=== PATIENT | female | born 1950 | race Caucasian/White ===

== ENCOUNTER → 2019-07-10 | Outpatient (CLI) | payer MEDICARE ==
[~2019-07-10] MED LIST: AMLO10TA8 PO; AMLO5TAB10 PO; ATOR40TA59 PO; BACL10TA PO; CARV3.1210 PO; CITA40TA12 PO; CLOP75TA PO; FENT1PAT17 TD; FENT1PAT19 TP; FULV250D IM; FURO-68 PO; GABA300C18 PO; HYDR-2769 PO; HYDR-3135 PO; LISI-334 PO; METF500T16 PO; MONT10TA49 PO; MORP-15 PO; MORP15TA PO; OMEP20TA63 PO; OMEP40CA45 PO; OXYC20TA PO; OXYC5CAP PO; PALB125C PO; POTA10TA12 PO; PROVENTIL HFA6.7 GM IH; RANI150C PO
--- NOTE | 2019-07-10 14:42 | RAD ---
PET ONCOLOGY CLINICAL INDICATION: Breast cancer with bone metastases.. PET for subsequent treatment strategy. FDG PET-CT of the Body TECHNIQUE: The patient received an IV injection of 13.6 mCi 18F-FDG in the left wrist. After an initial uptake phase of approximately 60-90 minutes, a CT scan without oral contrast, without IV contrast was acquired. Subsequently, positron emission tomography images from the skull base to mid thigh were obtained. CT, PET and fused images were reconstructed in transaxial, coronal, and sagittal projections and interpreted from a workstation. The patient's plasma glucose was 195 mg/dl. PRIOR STUDIES: 03/11/2019. CORRELATIVE STUDIES: Most recent CT angiogram chest from 06/07/2019. FINDINGS: CT: Please note that CT is only obtained for anatomic correlation. Limited exam due to lack of IV contrast. Visualized noncontrast sections through the brain and orbits are within normal limits. No enlarged cervical lymph nodes. Noncontrast appearance of the nasopharynx, oropharynx and hypopharynx within normal limits. Noncontrast appearance of the submandibular glands, parotid glands and thyroid are within normal limits. Significant atherosclerotic plaque in the bilateral carotid bulbs. No enlarged axillary or mediastinal lymph nodes. Evaluation of hilar lymphadenopathy is limited due to lack of IV contrast. Significant motion artifact is seen in the lungs limiting optimal evaluation. Couple of calcified granulomas in the left lung. Noncontrast appearance of the liver, spleen, gallbladder, pancreas, left adrenal within normal limits. Right adrenal adenoma measuring 1 cm. No nephrolithiasis or hydronephrosis. No enlarged retroperitoneal or pelvic adenopathy. Moderate diffuse atherosclerotic plaque in the abdominal aorta. No free pelvic fluid or ascites. No bowel obstruction. Uterus is present. Urinary bladder demonstrates no radiopaque stones. PET: No abnormal metabolic activity seen. IMPRESSION: PET-CT from the skull base to mid thigh demonstrates: 1. No abnormal metabolic activity seen. Electronically signed by: Mukesh Van DO (07/10/2019 2:39 PM) [facility]
== END | disposition home or self-care (01) ==
LOC: PETSC 14:05
PROVIDERS: ATTEND Radiology Radiation Oncology
DX: C50.211 Malignant neoplasm of upper-inner quadrant of right female breast (principal); C79.51 Secondary malignant neoplasm of bone; I65.23 Occlusion and stenosis of bilateral carotid arteries; J84.10 Pulmonary fibrosis, unspecified; D35.01 Benign neoplasm of right adrenal gland; I70.0 Atherosclerosis of aorta
CPT/HCPCS: 78815; A9552

== ENCOUNTER → 2019-09-26 | Outpatient (CLI) | payer MEDICARE ==
[2019-07-19 23:31] VITALS: BP 126/36
--- NOTE | 2019-09-29 18:52 | RAD ---
Examination: PET W CT SKULL TO MIDTHIGH History: Breast cancer restaging Comparison/Correlation: 03/11/2019 PET/CT exam, 07/10/2019 PET/CT exam, CTA of the chest 06/07/2019 Findings: PET CT exam was performed from the skull base to the proximal thighs. 13.4 mCi F-18 FDG was intravenously administered. Serum blood glucose was 189 mg/dL at the time of injection. Hepatic uptake is 2.1 SUV max. Uptake of radiotracer involving the visualized head, neck chest, abdomen, and pelvis is unremarkable. Uptake of radiotracer within bowel is physiologic in distribution. Coronary arterial calcification is notable. Left-sided infusion port is noted. Right axilla surgical clips are present. Diverticulosis of the colon is present. Nonobstructive right renal inferior pole calyceal calculus involvement noted. Cholelithiasis evident. Splenic lesion which is low in attenuation with no uptake probably representing a cyst is again identified. No enlarged abdominal or pelvic lymph nodes. Impression: No abnormal uptake to suggest active neoplastic or metastatic disease.
== END | disposition home or self-care (01) ==
LOC: PETSC 08:50
PROVIDERS: ATTEND Radiology Radiation Oncology
DX: C50.211 Malignant neoplasm of upper-inner quadrant of right female breast (principal); C79.51 Secondary malignant neoplasm of bone; K57.30 Diverticulosis of large intestine without perforation or abscess without bleeding; K80.20 Calculus of gallbladder without cholecystitis without obstruction; D73.89 Other diseases of spleen; I25.10 Atherosclerotic heart disease of native coronary artery without angina pectoris
CPT/HCPCS: 78815; A9552

== ENCOUNTER → 2020-01-23 | Outpatient (CLI) | payer MEDICARE ==
[2019-07-19 23:31] VITALS: BP 126/36
--- NOTE | 2020-01-23 20:44 | RAD ---
EXAM: PET W CT SKULL TO MIDTHIGH EXAM DATE: 01/23/2020 INDICATION: Right breast cancer. Restaging. She is a diabetic on metformin, last dose the night before. RADIOPHARMACEUTICAL: 13.5 mCi of F-18 Fluorodeoxyglucose (FDG) I.V. via the right wrist. TECHNIQUE: Patient weight: 175 pounds. Following at least four-hour fasting, the patient's blood glucose was 173 mg/dl. Approximately 1 hour after administration of FDG, overlapping emission scanning was performed from the orbital meatal line through the pelvis. A low-dose CT was performed for attenuation correction purposes and anatomic localization. Fused images of PET and CT were reviewed. Any standardized uptake values (SUV) reported are maximum values within a volume region of interest, expressed in gm/ml. COMPARISON: PET CT of 07/10/2019 and 09/26/2019. FINDINGS: PET: High background activity. Minimal right parasternal uptake at the level of the xiphoid process (image 91 of series 603) to max SUV of 1.84 present. No discrete abnormal metabolic activity is convincingly demonstrated. However, nodular pattern of activity in the liver could obscure uptake of small masses if present. No abnormal uptake in the bones. CT: Left chest port. Postop changes from right axillary pao dissection and bilateral oncoplasty breast surgery noted. Scattered calcified pulmonary granuloma and calcified left hilar lymph nodes. Coronary calcifications. Scattered arterial calcifications in the aorta without aneurysmal dilation. Mild focal ectasia in the infrarenal abdominal aorta to 2.1 cm with calcified intraluminal filling defects suggesting a chronic dissection. Layering rounded calcifications in the gallbladder lumen suggestive of a small gallstone. Nonobstructive punctate right nephrolithiasis measuring 4 mm. A 1 cm nodular density close to the superior pole of the right kidney could represent the adenoma previously described old motion artifact on this examination degrades detail. Scattered colonic diverticuli. Generalized osteopenia with no acute or aggressive osseous lesions. Mild sclerosis of the bilateral sacroiliac joints with evidence of partial fusion. Multilevel lumbar spinal degenerative changes. IMPRESSION: No evidence of recurrent, metabolically active disease in the included field of view. Electronically signed by: Nguyen Sterling MD (01/23/2020 8:40 PM) [id number]
== END | disposition home or self-care (01) ==
LOC: PETSC 08:57
PROVIDERS: ATTEND Internal Medicine Hematology & Oncology
DX: C50.411 Malignant neoplasm of upper-outer quadrant of right female breast (principal); Z17.0 Estrogen receptor positive status [ER+]; M89.8X9 Other specified disorders of bone, unspecified site; I70.0 Atherosclerosis of aorta; J84.10 Pulmonary fibrosis, unspecified; M51.36 Other intervertebral disc degeneration, lumbar region
CPT/HCPCS: 78815; A9552

== ENCOUNTER 2020-03-27 05:34 | Emergency (ER) | payer MEDICARE ==
[~2020-03-27] VITALS: Ht 160 cm; Wt 80.9 kg
[~2020-03-27 05:34] MED LIST changes: +ASPI325T11 PO; +Diclofenac Sodium TP; +NITR0.4T24 SL; +TIZA4TAB2 PO
[2020-03-27] MEDS ORDERED: KETOROLAC 30 MG/ML VIAL. IV ONE (06:30)
[2020-03-27] MEDS ORDERED: diphenhydrAMINE 50 MG/ML VIAL IVP ONE (06:30)
[2020-03-27] MEDS ORDERED: METOCLOPRAMIDE HCL 10 MG/2 ML VIAL. IV ONE (06:30)
[2020-03-27 06:38] LABS: BILIRUBIN,URINE NEGATIVE (NEG); CLARITY,URINE CLEAR; COLOR,URINE YELLOW; NITRITE,URINE NEGATIVE (NEG); PROTEIN,URINE NEGATIVE (NEG-TRACE)
[2020-03-27 06:50] LABS: BASO % 1 % (0-3); EOS # 0.1 x10^3/uL (0.0-0.7); EOS % 2 % (0-3); HEMATOCRIT 31.5 % (36.0-47.0); HEMOGLOBIN 10.6 g/dL (12.0-15.5); LYMPH # 1.1 x10^3/uL (1.0-4.8); LYMPH % 25 % (24-48); MEAN CORPUSCULAR HEMOGLOBIN 33 pg (25-35); MEAN CORPUSCULAR HGB CONC 34 g/dL (31-37); MEAN CORPUSCULAR VOLUME 97 fL (79-100); MONO # 0.4 x10^3/uL (0.0-1.1); MONO % 8 % (0-9); NEUT # 2.9 x10^3/uL (1.8-7.7); NEUT % 65 % (31-73); PLATELET COUNT 103 x10^3/uL (140-400); RED BLOOD COUNT 3.25 x10^6/uL (3.50-5.40); WHITE BLOOD COUNT 4.5 x10^3/uL (4.0-11.0)
[2020-03-27 06:52] LABS: BACTERIA,URINE 0 /HPF (0-FEW); RBC,URINE 0 /HPF (0-2); SQUAMOUS EPITHELIAL CELL,UR OCC /LPF
[2020-03-27] MEDS ORDERED: IV NORMAL SALINE 1000ML BAG 1,000 ML IV ONE (07:00)
[2020-03-27 07:01] LABS: CALCIUM 8.6 mg/dL (8.5-10.1); CREATININE 0.6 mg/dL (0.6-1.0); GFR 98.5; POTASSIUM 3.7 mmol/L (3.5-5.1)
[2020-03-27 07:11] LABS: ALBUMIN 3.4 g/dL (3.4-5.0); MAGNESIUM 1.8 mg/dL (1.8-2.4); TOTAL BILIRUBIN 0.6 mg/dL (0.2-1.0); TOTAL PROTEIN 6.8 g/dL (6.4-8.2)
--- NOTE | 2020-03-27 07:20 | RAD ---
CT HEAD AND MAXILLOFACIAL WO Date: 03/27/2020 6:11 AM Clinical Indication: Fall, pain, headache, trauma Comparison: None. Technique: 5 mm axial tomographic images were obtained of the head without contrast. These were viewed on brain and bone windows. Axial helical images of the face were obtained without contrast. Axial and coronal reconstruction was performed. One or more of the following dose reduction techniques were utilized: Automated exposure control (AEC), Adjustment of mA and/or kV according to patient size, Use of iterative reconstruction technique such as ASiR, CT scan done according to ALARA and image gently/image wisely CT HEAD FINDINGS: The brain parenchyma is normal in attenuation. No intra- or extra-axial mass or fluid collection. No acute hemorrhage. The ventricles are normal in size, shape, and morphology. The ragsdale-white matter junction is normal. The basilar cisterns are patent. The mastoid air cells are clear. No aggressive osseous lesion or fracture. CT FACE FINDINGS: There is no acute facial bone fracture. The paranasal sinuses are clear. The orbits are normal. The globes are intact. The nasal septum is mostly midline. Impression: 1. No acute intracranial process. 2. No acute facial bone fracture. Electronically signed by: Chuy Whitney MD (03/27/2020 7:17 AM) [id number]
[2020-03-27 07:21] VITALS: BP 174/86
--- NOTE | 2020-03-27 07:29 | PHYS DOC ---
Past Medical History Past Medical History: Cancer, Diabetes-Type II, High Cholesterol, Hypertension Additional Past Medical Histor: Chronic back pain Past Surgical History: Other Additional Past Surgical Histo: Breast reduction; CARDIAC STENT PLACEMENT 03/25/20 Smoking Status: Former Smoker Alcohol Use: None Drug Use: None General Adult EDM: Chief Complaint: CHEST PAIN HPI: HPI: Patient is a 70-year-old female who presents with a variety of complaints today. First, she was just discharged from the hospital after receiving cardiac stent. She states she did not feel really well after she left the hospital but really has no new complaints. She states her complaints are off and on chest discomfort which she has had now for some time. She states she is currently not having any chest pain. She does have severe headache and neck pain that she sta gena was worsened by recent accident. She states the wind caught a heavy car door and hit her in the head. She feels something very tender on her face and since that time her headaches have escalated. She has had some nausea but no vomiting. She states she has been eating. She does continue to wear her fentanyl patch. She denies any fever chills or sweats. She has had no upper respiratory type symptoms. [] Review of Systems: Review of Systems: Constitutional: Denies fever or chills. [] Eyes: Denies change in visual acuity. [] HENT: Denies nasal congestion or sore throat. [] Respiratory: Denies cough or shortness of breath. [] Cardiovascular: Denies chest pain or edema. [] GI: Denies abdominal pain, nausea, vomiting, bloody stools or diarrhea. [] : Denies dysuria. [] Musculoskeletal: Reports bony tenderness] Integument: Denies rash. [] Neurologic: Reports headache but denies lateralizing neurologic weakness [] Endocrine: Denies polyuria or polydipsia. [] Lymphatic: Denies swollen glands. [] Psychiatric: Reports anxiety and depression. [] Heart Score: Risk Factors: Risk Factors: DM, Current or recent (<one month) smoker, HTN, HLP, family history of CAD, obesity. Risk Scores: Score 0 - 3: 2.5% MACE over next 6 weeks - Discharge Home Score 4 - 6: 20.3% MACE over next 6 weeks - Admit for Clinical Observation Score 7 - 10: 72.7% MACE over next 6 weeks - Early Invasive Strategies Current Medications: Current Medications Medications (Trade) Dose Ordered Sig/Caleb Start Time Stop Time Status Last Admin Dose Admin Diphenhydramine HCl (Benadryl) 25 mg 1X ONCE 03/27/20 06:30 03/27/20 06:31 DC 03/27/20 06:51 25 MG Ketorolac Tromethamine (Toradol 30mg Vial) 30 mg 1X ONCE 03/27/20 06:30 03/27/20 06:31 DC 03/27/20 06:50 30 MG Metoclopramide HCl (Reglan Vial) 10 mg 1X ONCE 03/27/20 06:30 03/27/20 06:31 DC 03/27/20 06:50 10 MG Sodium Chloride 1,000 ml @ 1,000 mls/hr 1X ONCE 03/27/20 07:00 03/27/20 07:59 03/27/20 07:00 1,000 MLS/HR Allergies: Allergies: Allergies Coded Allergies Type Severity Reaction Last Updated Verified No Known Drug Allergies 07/04/19 No Physical Exam: PE: Constitutional: Well developed, well nourished, moderate distress, non-toxic appearance. [] HENT: Normocephalic, tender to palp left cheek no crepitus no obvious step-off or deformity, bilateral external ears normal, oropharynx moist, no oral exudates, nose normal. [] Eyes: PERRLA, EOMI, conjunctiva normal, no discharge. [] Neck: Normal range of motion, no tenderness, supple, no stridor. [] Cardiovascular:Heart rate regular rhythm, no murmur [] Lungs & Thorax: Bilateral breath sounds clear to auscultation [] Abdomen: Bowel sounds normal, soft, no tenderness, no masses, no pulsatile masses. [] Skin: Warm, dry, no erythema, no rash. [] Back: No tenderness, no CVA tenderness. [] Extremities: No tenderness, no cyanosis, no clubbing, ROM intact, no edema. [] Neurologic: Alert and oriented X 3, normal motor function, normal sensory function, no focal deficits noted. [] Psychologic: Unusual affect [] Current Patient Data: Labs: Laboratory Tests Test 03/27/20 05:50 03/27/20 06:35 Urine Collection Type Unknown Urine Color Yellow Urine Clarity Clear Urine pH 7.0 (<5.0-8.0) Urine Specific [place] 1.010 (1.000-1.030) Urine Protein Negative mg/dL (NEG-TRACE) Urine Glucose (UA) Negative mg/dL (NEG) Urine Ketones (Stick) Negative mg/dL (NEG) Urine Blood Negative (NEG) Urine Nitrite Negative (NEG) Urine Bilirubin Negative (NEG) Urine Urobilinogen Dipstick 1.0 mg/dL (0.2 mg/dL) Urine Leukocyte Esterase Trace (NEG) Urine RBC 0 /HPF (0-2) Urine WBC 1-4 /HPF (0-4) Urine Squamous Epithelial Cells Occ /LPF Urine Bacteria 0 /HPF (0-FEW) White Blood Count 4.5 x10^3/uL (4.0-11.0) Red Blood Count 3.25 x10^6/uL (3.50-5.40) L Hemoglobin 10.6 g/dL (12.0-15.5) L Hematocrit 31.5 % (36.0-47.0) L Mean Corpuscular Volume 97 fL (79-100) Mean Corpuscular Hemoglobin 33 pg (25-35) Mean Corpuscular Hemoglobin Concent 34 g/dL (31-37) Red Cell Distribution Width 15.0 % (11.5-14.5) H Platelet Count 103 x10^3/uL (140-400) L Neutrophils (%) (Auto) 65 % (31-73) Lymphocytes (%) (Auto) 25 % (24-48) Monocytes (%) (Auto) 8 % (0-9) Eosinophils (%) (Auto) 2 % (0-3) Basophils (%) (Auto) 1 % (0-3) Neutrophils # (Auto) 2.9 x10^3/uL (1.8-7.7) Lymphocytes # (Auto) 1.1 x10^3/uL (1.0-4.8) Monocytes # (Auto) 0.4 x10^3/uL (0.0-1.1) Eosinophils # (Auto) 0.1 x10^3/uL (0.0-0.7) Basophils # (Auto) 0.0 x10^3/uL (0.0-0.2) Sodium Level 139 mmol/L (136-145) Potassium Level 3.7 mmol/L (3.5-5.1) Chloride Level 101 mmol/L (98-107) Carbon Dioxide Level 32 mmol/L (21-32) Anion Gap 6 (6-14) Blood Urea Nitrogen 10 mg/dL (7-20) Creatinine 0.6 mg/dL (0.6-1.0) Estimated GFR (Cockcroft-Gault) 98.5 BUN/Creatinine Ratio 17 (6-20) Glucose Level 164 mg/dL (70-99) H Calcium Level 8.6 mg/dL (8.5-10.1) Magnesium Level 1.8 mg/dL (1.8-2.4) Total Bilirubin 0.6 mg/dL (0.2-1.0) Aspartate Amino Transferase (AST) 18 U/L (15-37) Alanine Aminotransferase (ALT) 22 U/L (14-59) Alkaline Phosphatase 55 U/L (46-116) Troponin I Quantitative 0.031 ng/mL (0.000-0.055) Total Protein 6.8 g/dL (6.4-8.2) Albumin 3.4 g/dL (3.4-5.0) Albumin/Globulin Ratio 1.0 (1.0-1.7) Laboratory Tests 03/27/20 06:35 Laboratory Tests 03/27/20 06:35 Vital Signs: Vital Signs Date Time Temp Pulse Resp B/P (MAP) Pulse Ox O2 Delivery O2 Flow Rate FiO2 03/27/20 05:54 97.6 18 151/67 (95) 97 Room Air 97.6 EKG: EKG: EKG: Normal sinus rhythm rate of [address]-T changes [] Radiology/Procedures: Radiology/Procedures: []REASON: head trauma-HALL PROCEDURE: CT HEAD AND MAXILLOFACIAL WO CT HEAD AND MAXILLOFACIAL WO Date: 03/27/2020 6:11 AM Clinical Indication: Fall, pain, headache, trauma Comparison: None. Technique: 5 mm axial tomographic images were obtained of the head without contrast. These were viewed on brain and bone windows. Axial helical images of the face were obtained without contrast. Axial and coronal reconstruction was performed. One or more of the following dose reduction techniques were utilized: Automated exposure control (AEC), Adjustment of mA and/or kV according to patient size, Use of iterative reconstruction technique such as ASiR, CT scan done according to ALARA and image gently/image wisely CT HEAD FINDINGS: The brain parenchyma is normal in attenuation. No intra- or extra-axial mass or fluid collection. No acute hemorrhage. The ventricles are normal in size, shape, and morphology. The ragsdale-white matter junction is normal. The basilar cisterns are patent. The mastoid air cells are clear. No aggressive osseous lesion or fracture. CT FACE FINDINGS: There is no acute facial bone fracture. The paranasal sinuses are clear. The orbits are normal. The globes are intact. The nasal septum is mostly midline. Impression: 1. No acute intracranial process. 2. No acute facial bone fracture. Course & Med Decision Making: Course & Med Decision Making Pertinent Labs and Imaging studies reviewed. (See chart for details) [ED course: Evaluation reveals a 70-year-old female with chronic pain and anxiety. I spoke with Dr. Mcrae who knew the patient very well. When I told the patient we would not be doing any pain medicine on the floor she said that she would rather go home. I suspect there is some drug-seeking behavior going on here.] Dragon Disclaimer: Sebastian Disclaimer: This electronic medical record was generated, in whole or in part, using a voice recognition dictation system. Departure Departure Impression: Primary Impression: Chest pain Qualified Codes: R07.9 - Chest pain, unspecified Additional Impression: Facial contusion Qualified Codes: S00.83XA - Contusion of other part of head, initial encounter Disposition: HOME, SELF-CARE Condition: STABLE Referrals: NO PCP (PCP) Patient Instructions: Chest Pain (Nonspecific), Chronic Pain Management Additional Instructions: You need to follow-up with your primary care physician. Return to the emergency department with any new or concerning symptoms ESTUARDO MARC DO March 27, 2020 07:29
[2020-03-27] MEDS ORDERED: HEPARIN PF 500 UNIT/5 ML DISP.SYRIN. IVP ONE (07:45)
[2020-03-27] MEDS ORDERED: HEPARIN PF 500 UNIT/5 ML DISP.SYRIN. IVP PRN ×2 (08:00)
--- NOTE | 2020-03-29 07:09 | EKG ---
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
== END 2020-03-27 07:51 | disposition home or self-care (01) ==
LOC: ER 05:34
DX: S00.83XA Contusion of other part of head, initial encounter (principal); R07.89 Other chest pain; R11.0 Nausea; R51 Headache; G89.29 Other chronic pain; E78.00 Pure hypercholesterolemia, unspecified; I10 Essential (primary) hypertension; E11.9 Type 2 diabetes mellitus without complications; F17.200 Nicotine dependence, unspecified, uncomplicated; W22.8XXA Striking against or struck by other objects, initial encounter; Y93.89 Activity, other specified; Y92.89 Other specified places as the place of occurrence of the external cause; Y99.8 Other external cause status
CPT/HCPCS: 36415; 70450; 70486; 80053; 81001; 83735; 84484; 85025; 87086; 93005; 96374; 96375; 99285; J1200; J1642; J1885; J2765; J7030

== ENCOUNTER 2020-07-01 16:10 | Inpatient (IN) | payer MEDICARE ==
[~2020-07-01] VITALS: Ht 160 cm; Wt 85.0 kg
[2020-07-01] MEDS ORDERED: IV NORMAL SALINE 1000ML BAG 1,000 ML IV ONE (16:45)
[2020-07-01] MEDS ORDERED: ONDANSETRON PF 4 MG/2 ML VIAL. IVP ONE (16:45)
[2020-07-01] MEDS ORDERED: MORPHINE SULFATE 10 MG/ML VIAL. IV ONE (16:45)
[2020-07-01] MEDS ORDERED: FAMOTIDINE 20 MG/2 ML VIAL IVP ONE (16:45)
[2020-07-01 17:12] LABS: BASO # 0.1 x10^3/uL (0.0-0.2); BASO % 1 % (0-3); CALCIUM 8.4 mg/dL (8.5-10.1); CREATININE 0.8 mg/dL (0.6-1.0); EOS # 0.1 x10^3/uL (0.0-0.7); EOS % 1 % (0-3); GFR 70.7; HEMATOCRIT 34.9 % (36.0-47.0); HEMOGLOBIN 11.7 g/dL (12.0-15.5); LYMPH # 1.2 x10^3/uL (1.0-4.8); LYMPH % 23 % (24-48); MEAN CORPUSCULAR HEMOGLOBIN 32 pg (25-35); MEAN CORPUSCULAR HGB CONC 34 g/dL (31-37); MEAN CORPUSCULAR VOLUME 96 fL (79-100); MONO # 0.3 x10^3/uL (0.0-1.1); MONO % 6 % (0-9); NEUT # 3.5 x10^3/uL (1.8-7.7); NEUT % 68 % (31-73); PLATELET COUNT 146 x10^3/uL (140-400); POTASSIUM 3.8 mmol/L (3.5-5.1); RED BLOOD COUNT 3.63 x10^6/uL (3.50-5.40); RED CELL DISTRIBUTION WIDTH 14.3 % (11.5-14.5); WHITE BLOOD COUNT 5.1 x10^3/uL (4.0-11.0)
[2020-07-01 17:18] LABS: ALBUMIN 3.4 g/dL (3.4-5.0); ALBUMIN/GLOBULIN RATIO 0.9 (1.0-1.7); MAGNESIUM 1.7 mg/dL (1.8-2.4); TOTAL BILIRUBIN 0.7 mg/dL (0.2-1.0); TOTAL PROTEIN 7.4 g/dL (6.4-8.2)
[2020-07-01] MEDS ORDERED: CONTRAST GIVEN. MC PRN (17:45)
[2020-07-01] MEDS ORDERED: IOHEXOL 300 MG/ML 100ML VIAL. IV ONE (18:00)
--- NOTE | 2020-07-01 18:09 | RAD ---
EXAM: CT Abdomen and Pelvis with IV contrast CLINICAL HISTORY: abd pain, bloody stools COMPARISON: none TECHNIQUE: Helical CT of the abdomen and pelvis was performed following the administration of IV contrast. Axial, coronal and sagittal reformatted images were generated. ---PQRS compliance statement - One or more of the following individualized dose reduction techniques were utilized for this study: 1. Automated exposure control 2. Adjustment of the mA and/or kV according to patient size 3. Use of iterative reconstruction technique--- FINDINGS: Lower chest: Dependent opacities in lower lobes likely scarring/atelectasis. Coronary artery calcifications are seen. Abdomen and pelvis: Liver and biliary system: No focal liver lesion. The liver is enlarged measuring 19 cm in length. Gallbladder is normal. No biliary ductal dilatation. Spleen: 2 cm splenic lesion is likely cystic. Pancreas: Pancreas is mildly atrophic. Adrenal glands: Unremarkable Kidneys: Symmetric nephrograms. Nonobstructing right interpolar renal calculus. No focal renal lesion. No hydronephrosis. No hydroureter Lymph nodes/retroperitoneum: No abdominal or pelvic lymphadenopathy. Vessels: Aortic calcifications are seen. Trace ectasia of the infrarenal aorta. Bowel/Peritoneal cavity: Prominent duodenal diverticulum is seen. Appendix is normal. Moderate colonic stool content is seen. No small or large bowel dilatation. No bowel obstruction. Colonic diverticulosis without evidence for acute diverticulitis. No abdominal or pelvic ascites. Abdominal wall: Unremarkable Bladder: Unremarkable Bones: Symphysis pubis degenerative changes of spine are seen. Mild leftward curvature of the thoracic spine apex at T11. IMPRESSION: 1. Moderate colonic stool content. Colonic diverticulosis without evidence for acute diverticulitis. 2. Cholelithiasis without CT evidence for acute cholecystitis. 3. Hypodense splenic lesion likely cyst. 4. Nonobstructive right interpolar renal calculus. 5. Hepatic hypoattenuation likely fatty liver. Electronically signed by: Juanito Shah MD (07/01/2020 6:06 PM) [facility]
[2020-07-01] MEDS ORDERED: HYDROmorphone 2 MG/ML VIAL IV ONE ×2 (19:30→20:15)
[2020-07-01] MEDS ORDERED: ONDANSETRON PF 4 MG/2 ML VIAL. IV PRN (20:15)
--- NOTE | 2020-07-01 20:17 | HP ---
ADMIT DATE: 07/01/2020 CHIEF COMPLAINT: Abdominal pain. HISTORY OF PRESENT ILLNESS: The patient is a pleasant middle-aged female, who presents to the ER with abdominal pain. She rates it at 9/10. She has associated nausea. It has been occurring for a couple of days. She tried taking some [id number] meds, but that did not help. She does have a previous history of diverticulitis. We did a CAT scan here in the ER, it is showing some diverticular disease without obvious inflammation. She also has moderate colonic stool and gallstones. I discussed the case with ER physician. We are going to admit the patient and consult GI. PAST MEDICAL HISTORY: Breast cancer, left chest wall Port-A-Cath, polypharmacy, depression, anxiety, TIA, hypertension, hyperlipidemia, chronic pain, GERD, diabetes. ALLERGIES: None. FAMILY HISTORY: Diabetes. SOCIAL HISTORY: She does not drink, smoke, or take drugs. MEDICATIONS: Reviewed, please refer to the MRAD, but she is on 19 medications. REVIEW OF SYSTEMS: GENERAL: No history of weight change, weakness or fevers. SKIN: No bruising, hair changes or rashes. EYES: No blurred, double or loss of vision. NOSE AND THROAT: No history of nosebleeds, hoarseness, or sore throat. HEART: No history of palpitations, chest pain or shortness of breath on exertion. LUNGS: Denies cough, hemoptysis, wheezing or shortness of breath. GASTROINTESTINAL: She complains of abdominal pain. GENITOURINARY: No history of frequency, urgency, hesitancy or nocturia. NEUROLOGIC: Denies history of numbness, tingling, tremor or weakness. PSYCHIATRIC: No history of panic, anxiety or depression. ENDOCRINE: No history of heat or cold intolerance, polyuria or polydipsia. EXTREMITIES: Denies muscle weakness, joint pain, pain on walking or stiffness. PHYSICAL EXAMINATION: VITALS: Within normal limits and are stable. GENERAL: No apparent distress. Alert and oriented. HEENT: Normal cephalic atraumatic, external auditory canals are patent. EYES: Extraocular muscles are intact, pupils are equally round and reactive to light and accommodation. MUSCULOSKELETAL: Well developed, well nourished, good range of motion. ENDOCRINE: No thyromegaly was palpated. LYMPHATICS: No cervical chain or axillary nodes were noted. HEMATOPOIETIC: No bruising. NECK: Supple, no JVD, no thyromegaly was noted. LUNGS: Clear to auscultation in all lung masterson without rhonchi or wheezing. CHEST: She does have a left chest Port-A-Cath. HEART: RRR, S1, S2 present. Peripheral pulses intact, no obvious murmurs were noted. ABDOMEN: She has decreased bowel sounds with pain in the left lower quadrant. EXTREMITIES: Without any cyanosis, clubbing, or edema. Pedal pulses intact, Homans sign is negative. NEUROLOGIC: Normal speech, normal tone. A & O x3, moves all extremities, no obvious focal deficits. PSYCHIATRIC: Normal affect, normal mood. Stable. SKIN: No ulcerations or rashes, good skin turgor, no jaundice. VASCULAR: Good capillary refill, neurovascular bundle appears to be intact. IMAGING: CT of the abdomen shows gallstones and diverticular disease and a lot of stool. LABORATORY DATA: White count is normal at 5. Electrolytes are normal. ASSESSMENT AND PLAN: Abdominal pain. The patient has been admitted. We will consult GI. IV fluids, home meds, DVT prophylaxis. Full code. P.r.n. pain meds. JEREMIE WHITFIELD DO DR: ELKE/arun JOB#: [id number] / [id number]
--- NOTE | 2020-07-01 20:37 | PHYS DOC ---
Past Medical History Past Medical History: Cancer, Diabetes-Type II, High Cholesterol, Hypertension, Other Additional Past Medical Histor: Chronic back pain, breast CA lEFT. Past Surgical History: Other Additional Past Surgical Histo: Breast reduction; CARDIAC STENT PLACEMENT 03/25/20 Smoking Status: Former Smoker Alcohol Use: None Drug Use: None General Adult EDM: Chief Complaint: ABDOMINAL PAIN HPI: HPI: Patient is a 70 year old female with history of diabetes type 2, hypertension, breast cancer currently not on chemotherapy, who presents to the ED today complaining of 8 out of 10 sharp left-sided abdominal pain with nausea that began 1 week ago. Patient denies any exacerbating or relieving factors to her pain. She states she tried [id number] remedies with no relief. She also states she noted her stools were bloody. Review of Systems: Review of Systems: Constitutional: Denies fever or chills. [] Eyes: Denies change in visual acuity. [] HENT: Denies nasal congestion or sore throat. [] Respiratory: Denies cough or shortness of breath. [] Cardiovascular: Denies chest pain or edema. [] GI: Reports left-sided abdominal pain with nausea, vomiting, bloody stools or diarrhea. [] : Denies dysuria. [] Musculoskeletal: Denies back pain or joint pain. [] Integument: Denies rash. [] Neurologic: Denies headache, focal weakness or sensory changes. [] Psychiatric: Denies depression or anxiety. [] Heart Score: Risk Factors: Risk Factors: DM, Current or recent (<one month) smoker, HTN, HLP, family history of CAD, obesity. Risk Scores: Score 0 - 3: 2.5% MACE over next 6 weeks - Discharge Home Score 4 - 6: 20.3% MACE over next 6 weeks - Admit for Clinical Observation Score 7 - 10: 72.7% MACE over next 6 weeks - Early Invasive Strategies Current Medications: Current Medications Medications (Trade) Dose Ordered Sig/Caleb Start Time Stop Time Status Last Admin Dose Admin Famotidine (Pepcid Vial) 20 mg 1X ONCE 07/01/20 16:45 07/01/20 16:47 DC 07/01/20 17:09 20 MG Hydromorphone HCl (Dilaudid) 1 mg 1X ONCE 07/01/20 20:15 07/01/20 20:16 DC 07/01/20 20:26 1 MG Info (CONTRAST GIVEN -- Rx MONITORING) 1 each PRN DAILY PRN 07/01/20 17:45 07/03/20 17:44 Iohexol (Omnipaque 300 Mg/ml) 75 ml 1X ONCE 07/01/20 18:00 07/01/20 18:01 DC 07/01/20 17:42 75 ML Morphine Sulfate (Morphine Sulfate) 4 mg PRN Q2HR PRN 07/01/20 20:15 07/02/20 20:14 Ondansetron HCl (Zofran) 4 mg PRN Q8HRS PRN 07/01/20 20:15 07/02/20 20:14 Sodium Chloride 1,000 ml @ 1,000 mls/hr 1X ONCE 07/01/20 16:45 07/01/20 17:44 DC 07/01/20 16:45 1,000 MLS/HR Allergies: Allergies: Allergies Coded Allergies Type Severity Reaction Last Updated Verified No Known Drug Allergies 07/04/19 No Physical Exam: PE: Constitutional: Well developed, well nourished, no acute distress, non-toxic appearance. [] HENT: Normocephalic, atraumatic, bilateral external ears normal, oropharynx moist, no oral exudates, nose normal. [] Very hard on hearing Eyes: PERRLA, EOMI, conjunctiva normal, no discharge. [] Neck: Normal range of motion, no tenderness, supple, no stridor. [] Cardiovascular:Heart rate regular rhythm, no murmur Port-A-Cath noted to the left upper chest Lungs & Thorax: Bilateral breath sounds clear to auscultation [] Abdomen: Bowel sounds normal, soft, diffuse tenderness to the left side of the abdomen, no right upper quadrant or right lower quadrant tenderness, no masses, no pulsatile masses. [] Skin: Warm, dry, no erythema, no rash. [] Back: No tenderness, no CVA tenderness. [] Extremities: No tenderness, no cyanosis, no clubbing, ROM intact, no edema. [] Neurologic: Alert and oriented X 3, normal motor function, normal sensory function, no focal deficits noted. [] Psychologic: Affect normal, judgement normal, mood normal. [] Current Patient Data: Labs: Laboratory Tests Test 07/01/20 16:45 White Blood Count 5.1 x10^3/uL (4.0-11.0) Red Blood Count 3.63 x10^6/uL (3.50-5.40) Hemoglobin 11.7 g/dL (12.0-15.5) L Hematocrit 34.9 % (36.0-47.0) L Mean Corpuscular Volume 96 fL (79-100) Mean Corpuscular Hemoglobin 32 pg (25-35) Mean Corpuscular Hemoglobin Concent 34 g/dL (31-37) Red Cell Distribution Width 14.3 % (11.5-14.5) Platelet Count 146 x10^3/uL (140-400) Neutrophils (%) (Auto) 68 % (31-73) Lymphocytes (%) (Auto) 23 % (24-48) L Monocytes (%) (Auto) 6 % (0-9) Eosinophils (%) (Auto) 1 % (0-3) Basophils (%) (Auto) 1 % (0-3) Neutrophils # (Auto) 3.5 x10^3/uL (1.8-7.7) Lymphocytes # (Auto) 1.2 x10^3/uL (1.0-4.8) Monocytes # (Auto) 0.3 x10^3/uL (0.0-1.1) Eosinophils # (Auto) 0.1 x10^3/uL (0.0-0.7) Basophils # (Auto) 0.1 x10^3/uL (0.0-0.2) Prothrombin Time 14.0 SEC (11.7-14.0) Prothrombin Time INR 1.1 (0.8-1.1) Activated Partial Thromboplast Time 89 SEC (24-38) H Sodium Level 137 mmol/L (136-145) Potassium Level 3.8 mmol/L (3.5-5.1) Chloride Level 100 mmol/L (98-107) Carbon Dioxide Level 29 mmol/L (21-32) Anion Gap 8 (6-14) Blood Urea Nitrogen 10 mg/dL (7-20) Creatinine 0.8 mg/dL (0.6-1.0) Estimated GFR (Cockcroft-Gault) 70.7 BUN/Creatinine Ratio 13 (6-20) Glucose Level 275 mg/dL (70-99) H Calcium Level 8.4 mg/dL (8.5-10.1) L Magnesium Level 1.7 mg/dL (1.8-2.4) L Total Bilirubin 0.7 mg/dL (0.2-1.0) Aspartate Amino Transferase (AST) 19 U/L (15-37) Alanine Aminotransferase (ALT) 24 U/L (14-59) Alkaline Phosphatase 63 U/L (46-116) Total Protein 7.4 g/dL (6.4-8.2) Albumin 3.4 g/dL (3.4-5.0) Albumin/Globulin Ratio 0.9 (1.0-1.7) L Lipase 74 U/L (73-393) Ethyl Alcohol Level < 10 mg/dL (0-10) Laboratory Tests 07/01/20 16:45 Laboratory Tests 07/01/20 16:45 Vital Signs: Vital Signs Date Time Temp Pulse Resp B/P (MAP) Pulse Ox O2 Delivery O2 Flow Rate FiO2 07/01/20 20:10 18 98 Room Air 07/01/20 16:20 98.6 90 146/67 (93) 98.6 EKG: EKG: [] Radiology/Procedures: Radiology/Procedures: []PROCEDURE: CT ABD PELV W/ IV CONTRST ONLY EXAM: CT Abdomen and Pelvis with IV contrast CLINICAL HISTORY: abd pain, bloody stools COMPARISON: none TECHNIQUE: Helical CT of the abdomen and pelvis was performed following the administration of IV contrast. Axial, coronal and sagittal reformatted images were generated. ---PQRS compliance statement - One or more of the following individualized dose reduction techniques were utilized for this study: 1. Automated exposure control 2. Adjustment of the mA and/or kV according to patient size 3. Use of iterative reconstruction technique--- FINDINGS: Lower chest: Dependent opacities in lower lobes likely scarring/atelectasis. Coronary artery calcifications are seen. Abdomen and pelvis: Liver and biliary system: No focal liver lesion. The liver is enlarged measuring 19 cm in length. Gallbladder is normal. No biliary ductal dilatation. Spleen: 2 cm splenic lesion is likely cystic. Pancreas: Pancreas is mildly atrophic. Adrenal glands: Unremarkable Kidneys: Symmetric nephrograms. Nonobstructing right interpolar renal calculus. No focal renal lesion. No hydronephrosis. No hydroureter Lymph nodes/retroperitoneum: No abdominal or pelvic lymphadenopathy. Vessels: Aortic calcifications are seen. Trace ectasia of the infrarenal aorta. Bowel/Peritoneal cavity: Prominent duodenal diverticulum is seen. Appendix is normal. Moderate colonic stool content is seen. No small or large bowel dilatation. No bowel obstruction. Colonic diverticulosis without evidence for acute diverticulitis. No abdominal or pelvic ascites. Abdominal wall: Unremarkable Bladder: Unremarkable Bones: Symphysis pubis degenerative changes of spine are seen. Mild leftward curvature of the thoracic spine apex at T11. IMPRESSION: 1. Moderate colonic stool content. Colonic diverticulosis without evidence for acute diverticulitis. 2. Cholelithiasis without CT evidence for acute cholecystitis. 3. Hypodense splenic lesion likely cyst. 4. Nonobstructive right interpolar renal calculus. 5. Hepatic hypoattenuation likely fatty liver. Electronically signed by: Juanito Shah MD (07/01/2020 6:06 PM) [facility] DICTATED and SIGNED BY: JUANITO SHAH MD DATE: 07/01/201805 Course & Med Decision Making: Course & Med Decision Making Pertinent Labs and Imaging studies reviewed. (See chart for details) This is a 70-year-old female patient with history of breast cancer presented to the ED today complaining of left-sided abdominal pain with occasional bloody stools, symptoms for 1 week. CBC with a normal WBC, hemoglobin 11.7, hematocrit 34.9. CMP with glucose of 275, anion gap is normal. Urine analysis pending. CT of the abdomen and pelvic was noted for diverticulosis no diverticulitis. Also noted for gallstones. Patient has continued to complain about pain despite being given morphine. She states there is no way she can go home in this pain. Will be admitted, GI consult Sebastian Disclaimer: Sebastian Disclaimer: This electronic medical record was generated, in whole or in part, using a voice recognition dictation system. Departure Departure Impression: Primary Impression: Intractable abdominal pain Additional Impressions: Diverticulosis Gallstones Disposition: ADMITTED INPATIENT Condition: STABLE Referrals: NO PCP (PCP) Justicifation of Admission Dx: Justifications for Admission: Justification of Admission Dx: Comment: (Intractable abdominal pain) ZACH LARSEN ASSISTANT CASE MANAGER Jul 01, 2020 20:37
[2020-07-01] MEDS ORDERED: DEXTROSE 50% 25 GM / 50ML DISP.SYRIN. IV PRN (21:30)
[2020-07-01 22:00] VITALS: BP 144/49
[2020-07-01 22:29] LABS: BILIRUBIN,URINE NEGATIVE (NEG); CLARITY,URINE CLEAR; COLOR,URINE YELLOW; NITRITE,URINE NEGATIVE (NEG); PH,URINE 5.5 (<5.0-8.0); PROTEIN,URINE NEGATIVE (NEG-TRACE)
[2020-07-01 22:33] LABS: BACTERIA,URINE 0 /HPF (0-FEW); RBC,URINE RARE /HPF (0-2); SQUAMOUS EPITHELIAL CELL,UR OCC /LPF; WBC,URINE 0 /HPF (0-4)
[2020-07-01 22:35] LABS: AMPHETAMINE/METHAMPHETAMINE NEG (NEG); BARBITURATES NEG (NEG); BENZODIAZEPINES NEG (NEG); CANNABINOIDS NEG (NEG); COCAINE NEG (NEG); METHADONE NEG (NEG); OPIATES POS (NEG); PHENCYCLIDINE NEG (NEG)
[2020-07-01] MEDS: MORPHINE SULFATE 4 MG/ML VIAL. IV PRN (22:45)
[2020-07-02] MEDS: MORPHINE SULFATE 4 MG/ML VIAL. IV PRN ×6 (01:34→23:29)
[2020-07-02] MEDS ORDERED: OMEP40CA45 PO (03:04)
[2020-07-02] MEDS ORDERED: CARV6.2511 PO (03:04)
[2020-07-02] MEDS ORDERED: AMLO2.5T5 PO (03:04)
[2020-07-02] MEDS ORDERED: IBUP-1060 PO (03:04)
[2020-07-02 03:15] VITALS: BP 149/70
[2020-07-02] MEDS: fentaNYL PF VIAL 100 MCG/2 ML VIAL IVP PRN ×2 (04:33→21:25)
[2020-07-02 07:00] VITALS: BP 145/77
--- NOTE | 2020-07-02 08:55 | PDOC ---
PROGRESS NOTES Date of Service: DATE: 07/02/20 TIME: 08:54 Chief Complaint Chief Complaint ASSESSMENT AND PLAN: Abdominal pain. INTRACTABLE morbid obesity LLQ pain-with history of polyps and diveritcular disease. Opoiod induced constipation leads differential r/o Malignancy, ischeimc coliits, recurrent colon polyps Moderate colonic stool content. Colonic diverticulosis without evidence for acute diverticulitis. Cholelithiasis without CT evidence for acute cholecystitis. Hypodense splenic lesion likely cyst. Nonobstructive right interpolar renal calculus. fatty liver. admitted. consult GI. IV fluids, home meds, DVT prophylaxis. Full code. P.r.n. pain meds. D/W RN Vitals Vitals Vital Signs Date Time Temp Pulse Resp B/P (MAP) Pulse Ox O2 Delivery O2 Flow Rate FiO2 07/02/20 07:00 98.1 86 16 145/77 (99) 90 Room Air 98.1 Physical Exam Physical Exam HEENT: Normal cephalic atraumatic, external auditory canals are patent. EYES: Extraocular muscles are intact, pupils are equally round and reactive to light and accommodation. MUSCULOSKELETAL: Well developed, well nourished, good range of motion. ENDOCRINE: No thyromegaly was palpated. LYMPHATICS: No cervical chain or axillary nodes were noted. HEMATOPOIETIC: No bruising. NECK: Supple, no JVD, no thyromegaly was noted. LUNGS: Clear to auscultation in all lung masterson without rhonchi or wheezing. CHEST: She does have a left chest Port-A-Cath. HEART: RRR, S1, S2 present. Peripheral pulses intact, no obvious murmurs were noted. ABDOMEN: She has decreased bowel sounds with pain in the left lower quadrant. EXTREMITIES: Without any cyanosis, clubbing, or edema. Pedal pulses intact, Homans sign is negative. NEUROLOGIC: Normal speech, normal tone. A & O x3, moves all extremities, no obvious focal deficits. PSYCHIATRIC: Normal affect, normal mood. Stable. SKIN: No ulcerations or rashes, good skin turgor, no jaundice. VASCULAR: Good capillary refill, neurovascular bundle appears to be intact. General: Alert, Oriented X3, Cooperative, mild distress Heart: Regular rate, No murmurs Lungs: Clear Extremities: No cyanosis, No edema Skin: No significant lesion Labs LABS FINDINGS: Lower chest: Dependent opacities in lower lobes likely scarring/atelectasis. Coronary artery calcifications are seen. Abdomen and pelvis: Liver and biliary system: No focal liver lesion. The liver is enlarged measuring 19 cm in length. Gallbladder is normal. No biliary ductal dilatation. Spleen: 2 cm splenic lesion is likely cystic. Pancreas: Pancreas is mildly atrophic. Adrenal glands: Unremarkable Kidneys: Symmetric nephrograms. Nonobstructing right interpolar renal calculus. No focal renal lesion. No hydronephrosis. No hydroureter Lymph nodes/retroperitoneum: No abdominal or pelvic lymphadenopathy. Vessels: Aortic calcifications are seen. Trace ectasia of the infrarenal aorta. Bowel/Peritoneal cavity: Prominent duodenal diverticulum is seen. Appendix is normal. Moderate colonic stool content is seen. No small or large bowel dilatation. No bowel obstruction. Colonic diverticulosis without evidence for acute diverticulitis. No abdominal or pelvic ascites. Abdominal wall: Unremarkable Bladder: Unremarkable Bones: Symphysis pubis degenerative changes of spine are seen. Mild leftward curvature of the thoracic spine apex at T11. IMPRESSION: 1. Moderate colonic stool content. Colonic diverticulosis without evidence for acute diverticulitis. 2. Cholelithiasis without CT evidence for acute cholecystitis. 3. Hypodense splenic lesion likely cyst. 4. Nonobstructive right interpolar renal calculus. 5. Hepatic hypoattenuation likely fatty liver. Electronically signed by: Juanito Shah MD (07/01/2020 6:06 PM) [facility] [place] [facility] Laboratory Tests Test 07/01/20 16:45 07/01/20 22:00 07/02/20 07:46 White Blood Count 5.1 x10^3/uL (4.0-11.0) Red Blood Count 3.63 x10^6/uL (3.50-5.40) Hemoglobin 11.7 g/dL (12.0-15.5) Hematocrit 34.9 % (36.0-47.0) Mean Corpuscular Volume 96 fL (79-100) Mean Corpuscular Hemoglobin 32 pg (25-35) Mean Corpuscular Hemoglobin Concent 34 g/dL (31-37) Red Cell Distribution Width 14.3 % (11.5-14.5) Platelet Count 146 x10^3/uL (140-400) Neutrophils (%) (Auto) 68 % (31-73) Lymphocytes (%) (Auto) 23 % (24-48) Monocytes (%) (Auto) 6 % (0-9) Eosinophils (%) (Auto) 1 % (0-3) Basophils (%) (Auto) 1 % (0-3) Neutrophils # (Auto) 3.5 x10^3/uL (1.8-7.7) Lymphocytes # (Auto) 1.2 x10^3/uL (1.0-4.8) Monocytes # (Auto) 0.3 x10^3/uL (0.0-1.1) Eosinophils # (Auto) 0.1 x10^3/uL (0.0-0.7) Basophils # (Auto) 0.1 x10^3/uL (0.0-0.2) Prothrombin Time 14.0 SEC (11.7-14.0) Prothromb Time International Ratio 1.1 (0.8-1.1) Activated Partial Thromboplast Time 89 SEC (24-38) Sodium Level 137 mmol/L (136-145) Potassium Level 3.8 mmol/L (3.5-5.1) Chloride Level 100 mmol/L (98-107) Carbon Dioxide Level 29 mmol/L (21-32) Anion Gap 8 (6-14) Blood Urea Nitrogen 10 mg/dL (7-20) Creatinine 0.8 mg/dL (0.6-1.0) Estimated GFR (Cockcroft-Gault) 70.7 BUN/Creatinine Ratio 13 (6-20) Glucose Level 275 mg/dL (70-99) Calcium Level 8.4 mg/dL (8.5-10.1) Magnesium Level 1.7 mg/dL (1.8-2.4) Total Bilirubin 0.7 mg/dL (0.2-1.0) Aspartate Amino Transf (AST/SGOT) 19 U/L (15-37) Alanine Aminotransferase (ALT/SGPT) 24 U/L (14-59) Alkaline Phosphatase 63 U/L (46-116) Total Protein 7.4 g/dL (6.4-8.2) Albumin 3.4 g/dL (3.4-5.0) Albumin/Globulin Ratio 0.9 (1.0-1.7) Lipase 74 U/L (73-393) Ethyl Alcohol Level < 10 mg/dL (0-10) Urine Collection Type Unknown Urine Color Yellow Urine Clarity Clear Urine pH 5.5 (<5.0-8.0) Urine Specific [place] >=1.030 (1.000-1.030) Urine Protein Negative mg/dL (NEG-TRACE) Urine Glucose (UA) Negative mg/dL (NEG) Urine Ketones (Stick) Negative mg/dL (NEG) Urine Blood Negative (NEG) Urine Nitrite Negative (NEG) Urine Bilirubin Negative (NEG) Urine Urobilinogen Dipstick 1.0 mg/dL (0.2 mg/dL) Urine Leukocyte Esterase Negative (NEG) Urine RBC Rare /HPF (0-2) Urine WBC 0 /HPF (0-4) Urine Squamous Epithelial Cells Occ /LPF Urine Bacteria 0 /HPF (0-FEW) Urine Opiates Screen Pos (NEG) Urine Methadone Screen Neg (NEG) Urine Barbiturates Neg (NEG) Urine Phencyclidine Screen Neg (NEG) Urine Amphetamine/Methamphetamine Neg (NEG) Urine Benzodiazepines Screen Neg (NEG) Urine Cocaine Screen Neg (NEG) Urine Cannabinoids Screen Neg (NEG) Urine Ethyl Alcohol Neg (NEG) Glucose (Fingerstick) 140 mg/dL (70-99) Assessment and Plan Assessmemt and Plan Problems Medical Problems: (1) Diverticulosis Status: Acute (2) Gallstones Status: Acute (3) Intractable abdominal pain Status: Acute Comment Review of Relevant I have reviewed the following items shayne (where applicable) has been applied. Labs Laboratory Tests Test 07/01/20 16:45 07/01/20 22:00 07/02/20 07:46 White Blood Count 5.1 x10^3/uL (4.0-11.0) Red Blood Count 3.63 x10^6/uL (3.50-5.40) Hemoglobin 11.7 g/dL (12.0-15.5) Hematocrit 34.9 % (36.0-47.0) Mean Corpuscular Volume 96 fL (79-100) Mean Corpuscular Hemoglobin 32 pg (25-35) Mean Corpuscular Hemoglobin Concent 34 g/dL (31-37) Red Cell Distribution Width 14.3 % (11.5-14.5) Platelet Count 146 x10^3/uL (140-400) Neutrophils (%) (Auto) 68 % (31-73) Lymphocytes (%) (Auto) 23 % (24-48) Monocytes (%) (Auto) 6 % (0-9) Eosinophils (%) (Auto) 1 % (0-3) Basophils (%) (Auto) 1 % (0-3) Neutrophils # (Auto) 3.5 x10^3/uL (1.8-7.7) Lymphocytes # (Auto) 1.2 x10^3/uL (1.0-4.8) Monocytes # (Auto) 0.3 x10^3/uL (0.0-1.1) Eosinophils # (Auto) 0.1 x10^3/uL (0.0-0.7) Basophils # (Auto) 0.1 x10^3/uL (0.0-0.2) Prothrombin Time 14.0 SEC (11.7-14.0) Prothromb Time International Ratio 1.1 (0.8-1.1) Activated Partial Thromboplast Time 89 SEC (24-38) Sodium Level 137 mmol/L (136-145) Potassium Level 3.8 mmol/L (3.5-5.1) Chloride Level 100 mmol/L (98-107) Carbon Dioxide Level 29 mmol/L (21-32) Anion Gap 8 (6-14) Blood Urea Nitrogen 10 mg/dL (7-20) Creatinine 0.8 mg/dL (0.6-1.0) Estimated GFR (Cockcroft-Gault) 70.7 BUN/Creatinine Ratio 13 (6-20) Glucose Level 275 mg/dL (70-99) Calcium Level 8.4 mg/dL (8.5-10.1) Magnesium Level 1.7 mg/dL (1.8-2.4) Total Bilirubin 0.7 mg/dL (0.2-1.0) Aspartate Amino Transf (AST/SGOT) 19 U/L (15-37) Alanine Aminotransferase (ALT/SGPT) 24 U/L (14-59) Alkaline Phosphatase 63 U/L (46-116) Total Protein 7.4 g/dL (6.4-8.2) Albumin 3.4 g/dL (3.4-5.0) Albumin/Globulin Ratio 0.9 (1.0-1.7) Lipase 74 U/L (73-393) Ethyl Alcohol Level < 10 mg/dL (0-10) Urine Collection Type Unknown Urine Color Yellow Urine Clarity Clear Urine pH 5.5 (<5.0-8.0) Urine Specific [place] >=1.030 (1.000-1.030) Urine Protein Negative mg/dL (NEG-TRACE) Urine Glucose (UA) Negative mg/dL (NEG) Urine Ketones (Stick) Negative mg/dL (NEG) Urine Blood Negative (NEG) Urine Nitrite Negative (NEG) Urine Bilirubin Negative (NEG) Urine Urobilinogen Dipstick 1.0 mg/dL (0.2 mg/dL) Urine Leukocyte Esterase Negative (NEG) Urine RBC Rare /HPF (0-2) Urine WBC 0 /HPF (0-4) Urine Squamous Epithelial Cells Occ /LPF Urine Bacteria 0 /HPF (0-FEW) Urine Opiates Screen Pos (NEG) Urine Methadone Screen Neg (NEG) Urine Barbiturates Neg (NEG) Urine Phencyclidine Screen Neg (NEG) Urine Amphetamine/Methamphetamine Neg (NEG) Urine Benzodiazepines Screen Neg (NEG) Urine Cocaine Screen Neg (NEG) Urine Cannabinoids Screen Neg (NEG) Urine Ethyl Alcohol Neg (NEG) Glucose (Fingerstick) 140 mg/dL (70-99) Laboratory Tests Test 07/01/20 16:45 07/01/20 22:00 07/02/20 07:46 White Blood Count 5.1 x10^3/uL (4.0-11.0) Red Blood Count 3.63 x10^6/uL (3.50-5.40) Hemoglobin 11.7 g/dL (12.0-15.5) Hematocrit 34.9 % (36.0-47.0) Mean Corpuscular Volume 96 fL (79-100) Mean Corpuscular Hemoglobin 32 pg (25-35) Mean Corpuscular Hemoglobin Concent 34 g/dL (31-37) Red Cell Distribution Width 14.3 % (11.5-14.5) Platelet Count 146 x10^3/uL (140-400) Neutrophils (%) (Auto) 68 % (31-73) Lymphocytes (%) (Auto) 23 % (24-48) Monocytes (%) (Auto) 6 % (0-9) Eosinophils (%) (Auto) 1 % (0-3) Basophils (%) (Auto) 1 % (0-3) Neutrophils # (Auto) 3.5 x10^3/uL (1.8-7.7) Lymphocytes # (Auto) 1.2 x10^3/uL (1.0-4.8) Monocytes # (Auto) 0.3 x10^3/uL (0.0-1.1) Eosinophils # (Auto) 0.1 x10^3/uL (0.0-0.7) Basophils # (Auto) 0.1 x10^3/uL (0.0-0.2) Prothrombin Time 14.0 SEC (11.7-14.0) Prothromb Time International Ratio 1.1 (0.8-1.1) Activated Partial Thromboplast Time 89 SEC (24-38) Sodium Level 137 mmol/L (136-145) Potassium Level 3.8 mmol/L (3.5-5.1) Chloride Level 100 mmol/L (98-107) Carbon Dioxide Level 29 mmol/L (21-32) Anion Gap 8 (6-14) Blood Urea Nitrogen 10 mg/dL (7-20) Creatinine 0.8 mg/dL (0.6-1.0) Estimated GFR (Cockcroft-Gault) 70.7 BUN/Creatinine Ratio 13 (6-20) Glucose Level 275 mg/dL (70-99) Calcium Level 8.4 mg/dL (8.5-10.1) Magnesium Level 1.7 mg/dL (1.8-2.4) Total Bilirubin 0.7 mg/dL (0.2-1.0) Aspartate Amino Transf (AST/SGOT) 19 U/L (15-37) Alanine Aminotransferase (ALT/SGPT) 24 U/L (14-59) Alkaline Phosphatase 63 U/L (46-116) Total Protein 7.4 g/dL (6.4-8.2) Albumin 3.4 g/dL (3.4-5.0) Albumin/Globulin Ratio 0.9 (1.0-1.7) Lipase 74 U/L (73-393) Ethyl Alcohol Level < 10 mg/dL (0-10) Urine Collection Type Unknown Urine Color Yellow Urine Clarity Clear Urine pH 5.5 (<5.0-8.0) Urine Specific [place] >=1.030 (1.000-1.030) Urine Protein Negative mg/dL (NEG-TRACE) Urine Glucose (UA) Negative mg/dL (NEG) Urine Ketones (Stick) Negative mg/dL (NEG) Urine Blood Negative (NEG) Urine Nitrite Negative (NEG) Urine Bilirubin Negative (NEG) Urine Urobilinogen Dipstick 1.0 mg/dL (0.2 mg/dL) Urine Leukocyte Esterase Negative (NEG) Urine RBC Rare /HPF (0-2) Urine WBC 0 /HPF (0-4) Urine Squamous Epithelial Cells Occ /LPF Urine Bacteria 0 /HPF (0-FEW) Urine Opiates Screen Pos (NEG) Urine Methadone Screen Neg (NEG) Urine Barbiturates Neg (NEG) Urine Phencyclidine Screen Neg (NEG) Urine Amphetamine/Methamphetamine Neg (NEG) Urine Benzodiazepines Screen Neg (NEG) Urine Cocaine Screen Neg (NEG) Urine Cannabinoids Screen Neg (NEG) Urine Ethyl Alcohol Neg (NEG) Glucose (Fingerstick) 140 mg/dL (70-99) Medications Current Medications Famotidine (Pepcid Vial) 20 mg 1X ONCE IVP Last administered on 07/01/20at 17:09; Start 07/01/20 at 16:45; Stop 07/01/20 at 16:47; Status DC Ondansetron HCl (Zofran) 4 mg 1X ONCE IVP Last administered on 07/01/20at 17:06; Start 07/01/20 at 16:45; Stop 07/01/20 at 16:47; Status DC Morphine Sulfate (Morphine Sulfate) 5 mg 1X ONCE IV Last administered on 07/01/20at 17:11; Start 07/01/20 at 16:45; Stop 07/01/20 at 16:47; Status DC Sodium Chloride 1,000 ml @ 1,000 mls/hr 1X ONCE IV Last administered on 07/01/20at 16:45; Start 07/01/20 at 16:45; Stop 07/01/20 at 17:44; Status DC Iohexol (Omnipaque 300 Mg/ml) 75 ml 1X ONCE IV Last administered on 07/01/20at 17:42; Start 07/01/20 at 18:00; Stop 07/01/20 at 18:01; Status DC Info (CONTRAST GIVEN -- Rx MONITORING) 1 each PRN DAILY PRN MC SEE COMMENTS; Start 07/01/20 at 17:45; Stop 07/03/20 at 17:44 Hydromorphone HCl (Dilaudid) 1 mg 1X ONCE IV Last administered on 07/01/20at 19:38; Start 07/01/20 at 19:30; Stop 07/01/20 at 19:31; Status DC Ondansetron HCl (Zofran) 4 mg PRN Q8HRS PRN IV NAUSEA/VOMITING; Start 07/01/20 at 20:15; Stop 07/02/20 at 20:14 Morphine Sulfate (Morphine Sulfate) 4 mg PRN Q2HR PRN IV PAIN Last administered on 07/02/20at 07:49; Start 07/01/20 at 20:15; Stop 07/02/20 at 20:14 Hydromorphone HCl (Dilaudid) 1 mg 1X ONCE IV Last administered on 07/01/20at 20:26; Start 07/01/20 at 20:15; Stop 07/01/20 at 20:16; Status DC Dextrose (Dextrose 50%-Water Syringe) 12.5 gm PRN Q15MIN PRN IV SEE COMMENTS; Start 07/01/20 at 21:30 Fentanyl Citrate (Fentanyl 2ml Vial) 50 mcg PRN Q2HR PRN IVP SEVERE PAIN 7-10 Last administered on 07/02/20at 04:33; Start 07/02/20 at 02:45 Polyethylene Glycol (miraLAX PACKET) 17 gm DAILY PO ; Start 07/02/20 at 09:00 Diclofenac Sodium (Voltaren) 1 matthew BID TP ; Start 07/02/20 at 09:00 Active Scripts Active [Diclofenac Sodium] 100 GM Gel..gram. 1 Matthew TP BID 7 Days Tizanidine Hcl 4 Mg Tablet 4 Mg PO TID 30 Days Reported Amlodipine Besylate 2.5 Mg Tablet 2.5 Mg PO DAILY Omeprazole 40 Mg Capsule.dr 1 Cap PO DAILY Carvedilol (Carvedilol) 6.25 Mg Tablet 6.25 Mg PO BIDWMEALS Ibuprofen 800 Mg Tablet 800 Mg PO PRN BID PRN Atorvastatin Calcium 40 Mg Tablet 40 Mg PO HS Clopidogrel (Clopidogrel Bisulfate) 75 Mg Tablet 75 Mg PO DAILY Montelukast Sodium Tablet (Montelukast Sodium) 10 Mg Tablet 10 Mg PO HS Celexa (Citalopram Hydrobromide) 40 Mg Tablet 40 Mg PO HS Lasix (Furosemide) 40 Mg Tablet 40 Mg PO DAILY PRN Metformin Hcl 500 Mg Tablet 500 Mg PO DAILY08 FENTANYL 50mcg/hr (Fentanyl) 1 Each Patch.td72 1 Patch TD Q72H Vitals/I & O Vital Sign - Last 24 Hours 07/01/20 07/01/20 07/01/20 07/01/20 16:20 17:11 19:00 20:00 Temp 98.6 98.6 Pulse 90 82 76 Resp 24 20 20 16 B/P (MAP) 146/67 (93) 132/71 (91) 136/76 (96) Pulse Ox 95 95 98 99 O2 Delivery Room Air Room Air Room Air Room Air 07/01/20 07/01/20 07/01/20 07/01/20 20:10 21:00 21:40 22:00 Temp 97.9 97.9 Pulse 75 86 Resp 18 16 20 B/P (MAP) 152/80 (104) 144/49 (80) Pulse Ox 98 99 93 O2 Delivery Room Air Room Air Room Air Room Air 07/01/20 07/01/20 07/02/20 07/02/20 22:45 23:21 01:34 02:04 O2 Delivery Room Air Room Air Room Air Room Air 07/02/20 07/02/20 07/02/20 07/02/20 03:15 04:33 05:15 07:00 Temp 97.9 98.1 97.9 98.1 Pulse 80 86 Resp 20 16 B/P (MAP) 149/70 (96) 145/77 (99) Pulse Ox 96 90 O2 Delivery Room Air Room Air Room Air Room Air Intake and Output 07/01/20 07/01/20 07/02/20 15:00 23:00 07:00 Output Total 600 ml Balance -600 ml Justicifation of Admission Dx: Justifications for Admission: Justification of Admission Dx: Comment: (Intractable abdominal pain) JAN CLEMONS MD Jul 02, 2020 08:55
--- NOTE | 2020-07-02 09:47 | PDOC2 ---
LYDIA EDGAR 07/02/20 0947: GI CONSULT Date of Service: DATE: 07/02/20 TIME: 09:47 Reason For Consult: requested by ER for chest pain requested by hospitalist for abdominal HPI: HPI: 70 y/o female admitted through ER. LLQ pain for a couple weeks - getting worse. Noted w/ movement. Sometimes radiates to RLQ. Associated w/ some constipation and possible blood in stool ("looks dark around it if you don't flush"). Stool softeners didn't help. Similar symptoms in the past - had a colonoscopy a few years ago in [place], was told "polyps" and "don't eat nuts or seeds." Moderate colonic stool content and diverticulosis noted on CT. Denies reflux/heartburn (says takes omeprazole "because of all those other pills"), dysphagia, n/v, upper abd pain, early satiety, change in appetite, diarrhea, and weight loss. Denies GB, liver, pancreas, and PUD history. CT noted cholelithiasis and fatty liver. No previous EGD. H/o CAD, A Fib, and CVA on Plavix and ASA. Uses ibuprofen PRN but takes oxycodone regularly for neck and back pain. H/o anemia - Hgb lower in the past. Low B12 in 2019, normal iron then. Has been NPO w/o IVF - really really thirsty. PMH: PMH: A Fib, CAD w/ stent, HTN, HLD, COPD, CVA, breast cancer s/p surgery (found during breast reduction) and chemo, DVT/PE, anxiety, arthritis, chronic neck and back pain, allergic rhinitis, UTI, nephrolithiasis, DM tubal ligation, breast augmentation, port placement FH: Family History: Hypertension Social History: Smoke: Quit ALCOHOL: rare Drugs: None ROS: GEN: Denies fevers, chills, sweats HEENT: Denies blurred vision, sore throat CV: Denies chest pain RESP: Denies shortness of air, cough GI: Per HPI : Denies hematuria, dysuria ENDO: Denies weight changes NEURO: Denies confusion, dizziness MSK: Denies weakness, joint pain/swelling SKIN: Denies jaundice, pruritus Vitals: Vitals: Vital Signs Date Time Temp Pulse Resp B/P (MAP) Pulse Ox O2 Delivery O2 Flow Rate FiO2 07/02/20 07:00 98.1 86 16 145/77 (99) 90 Room Air 98.1 Labs: Labs: Laboratory Tests Test 07/01/20 16:45 07/01/20 22:00 07/02/20 07:46 White Blood Count 5.1 x10^3/uL (4.0-11.0) Red Blood Count 3.63 x10^6/uL (3.50-5.40) Hemoglobin 11.7 g/dL (12.0-15.5) Hematocrit 34.9 % (36.0-47.0) Mean Corpuscular Volume 96 fL (79-100) Mean Corpuscular Hemoglobin 32 pg (25-35) Mean Corpuscular Hemoglobin Concent 34 g/dL (31-37) Red Cell Distribution Width 14.3 % (11.5-14.5) Platelet Count 146 x10^3/uL (140-400) Neutrophils (%) (Auto) 68 % (31-73) Lymphocytes (%) (Auto) 23 % (24-48) Monocytes (%) (Auto) 6 % (0-9) Eosinophils (%) (Auto) 1 % (0-3) Basophils (%) (Auto) 1 % (0-3) Neutrophils # (Auto) 3.5 x10^3/uL (1.8-7.7) Lymphocytes # (Auto) 1.2 x10^3/uL (1.0-4.8) Monocytes # (Auto) 0.3 x10^3/uL (0.0-1.1) Eosinophils # (Auto) 0.1 x10^3/uL (0.0-0.7) Basophils # (Auto) 0.1 x10^3/uL (0.0-0.2) Prothrombin Time 14.0 SEC (11.7-14.0) Prothromb Time International Ratio 1.1 (0.8-1.1) Activated Partial Thromboplast Time 89 SEC (24-38) Sodium Level 137 mmol/L (136-145) Potassium Level 3.8 mmol/L (3.5-5.1) Chloride Level 100 mmol/L (98-107) Carbon Dioxide Level 29 mmol/L (21-32) Anion Gap 8 (6-14) Blood Urea Nitrogen 10 mg/dL (7-20) Creatinine 0.8 mg/dL (0.6-1.0) Estimated GFR (Cockcroft-Gault) 70.7 BUN/Creatinine Ratio 13 (6-20) Glucose Level 275 mg/dL (70-99) Calcium Level 8.4 mg/dL (8.5-10.1) Magnesium Level 1.7 mg/dL (1.8-2.4) Total Bilirubin 0.7 mg/dL (0.2-1.0) Aspartate Amino Transf (AST/SGOT) 19 U/L (15-37) Alanine Aminotransferase (ALT/SGPT) 24 U/L (14-59) Alkaline Phosphatase 63 U/L (46-116) Total Protein 7.4 g/dL (6.4-8.2) Albumin 3.4 g/dL (3.4-5.0) Albumin/Globulin Ratio 0.9 (1.0-1.7) Lipase 74 U/L (73-393) Ethyl Alcohol Level < 10 mg/dL (0-10) Urine Collection Type Unknown Urine Color Yellow Urine Clarity Clear Urine pH 5.5 (<5.0-8.0) Urine Specific [place] >=1.030 (1.000-1.030) Urine Protein Negative mg/dL (NEG-TRACE) Urine Glucose (UA) Negative mg/dL (NEG) Urine Ketones (Stick) Negative mg/dL (NEG) Urine Blood Negative (NEG) Urine Nitrite Negative (NEG) Urine Bilirubin Negative (NEG) Urine Urobilinogen Dipstick 1.0 mg/dL (0.2 mg/dL) Urine Leukocyte Esterase Negative (NEG) Urine RBC Rare /HPF (0-2) Urine WBC 0 /HPF (0-4) Urine Squamous Epithelial Cells Occ /LPF Urine Bacteria 0 /HPF (0-FEW) Urine Opiates Screen Pos (NEG) Urine Methadone Screen Neg (NEG) Urine Barbiturates Neg (NEG) Urine Phencyclidine Screen Neg (NEG) Urine Amphetamine/Methamphetamine Neg (NEG) Urine Benzodiazepines Screen Neg (NEG) Urine Cocaine Screen Neg (NEG) Urine Cannabinoids Screen Neg (NEG) Urine Ethyl Alcohol Neg (NEG) Glucose (Fingerstick) 140 mg/dL (70-99) Allergies: Coded Allergies: No Known Drug Allergies (Unverified , 07/04/19) Medications: Current Medications Medications (Trade) Dose Ordered Sig/Caleb Route PRN Reason Start Time Stop Time Status Last Admin Dose Admin Famotidine (Pepcid Vial) 20 mg 1X ONCE IVP 07/01/20 16:45 07/01/20 16:47 DC 07/01/20 17:09 Ondansetron HCl (Zofran) 4 mg 1X ONCE IVP 07/01/20 16:45 07/01/20 16:47 DC 07/01/20 17:06 Morphine Sulfate (Morphine Sulfate) 5 mg 1X ONCE IV 07/01/20 16:45 07/01/20 16:47 DC 07/01/20 17:11 Sodium Chloride 1,000 ml @ 1,000 mls/hr 1X ONCE IV 07/01/20 16:45 07/01/20 17:44 DC 07/01/20 16:45 Iohexol (Omnipaque 300 Mg/ml) 75 ml 1X ONCE IV 07/01/20 18:00 07/01/20 18:01 DC 07/01/20 17:42 Hydromorphone HCl (Dilaudid) 1 mg 1X ONCE IV 07/01/20 19:30 07/01/20 19:31 DC 07/01/20 19:38 Morphine Sulfate (Morphine Sulfate) 4 mg PRN Q2HR PRN IV PAIN 07/01/20 20:15 07/02/20 20:14 07/02/20 07:49 Hydromorphone HCl (Dilaudid) 1 mg 1X ONCE IV 07/01/20 20:15 07/01/20 20:16 DC 07/01/20 20:26 Fentanyl Citrate (Fentanyl 2ml Vial) 50 mcg PRN Q2HR PRN IVP SEVERE PAIN 7-10 07/02/20 02:45 07/02/20 04:33 Imaging: Imaging: CT A/P IMPRESSION: 1. Moderate colonic stool content. Colonic diverticulosis without evidence for acute diverticulitis. 2. Cholelithiasis without CT evidence for acute cholecystitis. 3. Hypodense splenic lesion likely cyst. 4. Nonobstructive right interpolar renal calculus. 5. Hepatic hypoattenuation likely fatty liver. PE: GEN: NAD HEENT: Atraumatic, PERRL LUNGS: CTAB HEART: RRR ABD: NABS, S/ND, LLQ discomfort - some vague tenderness diffusely EXTREMITY: No edema SKIN: No rashes, no jaundice NEURO/PSYCH: A & O 3 A/P: A/P: LLQ pain, ?constipation, ?blood in stool Anemia - h/o same, B12 low in the past CRC screen, h/o polyps - fairly recent colonoscopy in [place] Diverticulosis Cholelithiasis Fatty liver H/o CAD, A Fib, CVA - Plavix and ASA Chronic pain on ioxycodone -- Try Miralax prep. Consider Amitiza, etc. 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 Clears, ADAT. Her complaints are lower abdominal pain - seems cholelithiasis probably incidental finding on CT - monitor. Pancytopenia on lab recheck - monitor - restart B12. WILLI SCHWARZ MD 07/02/20 1150: LYDIA EDGAR Jul 02, 2020 09:47 WILLI SCHWARZ MD Jul 02, 2020 11:50
--- NOTE | 2020-07-02 10:10 | NUR ---
SW following. Discussed with RN, pt from home alone, hx of breast cancer. Room air, NPO, gets around independently. Dr. Jimenez consulted. MIGUEL ÁNGEL will continue to follow for any discharge planning needs.
[2020-07-02] MEDS: DICLOFENAC SODIUM 1% TOPICAL GEL 100GM TUBE. TP SCH ×2 (10:18→21:30)
[2020-07-02] MEDS: POLYETHYLENE GLYCOL 3350 17 GM PACKET. PO SCH (10:19)
[2020-07-02 10:44] LABS: BASO % 1 % (0-3); EOS # 0.1 x10^3/uL (0.0-0.7); EOS % 2 % (0-3); HEMATOCRIT 32.3 % (36.0-47.0); HEMOGLOBIN 10.8 g/dL (12.0-15.5); LYMPH # 1.1 x10^3/uL (1.0-4.8); LYMPH % 27 % (24-48); MEAN CORPUSCULAR HEMOGLOBIN 32 pg (25-35); MEAN CORPUSCULAR HGB CONC 33 g/dL (31-37); MEAN CORPUSCULAR VOLUME 96 fL (79-100); MONO # 0.3 x10^3/uL (0.0-1.1); MONO % 7 % (0-9); NEUT # 2.5 x10^3/uL (1.8-7.7); NEUT % 64 % (31-73); PLATELET COUNT 132 x10^3/uL (140-400); RED BLOOD COUNT 3.36 x10^6/uL (3.50-5.40); RED CELL DISTRIBUTION WIDTH 14.3 % (11.5-14.5); WHITE BLOOD COUNT 3.9 x10^3/uL (4.0-11.0)
[2020-07-02 10:53] LABS: ALBUMIN/GLOBULIN RATIO 0.8 (1.0-1.7); CALCIUM 7.7 mg/dL (8.5-10.1); CREATININE 0.6 mg/dL (0.6-1.0); GFR 98.5; POTASSIUM 3.7 mmol/L (3.5-5.1); TOTAL BILIRUBIN 0.9 mg/dL (0.2-1.0); TOTAL PROTEIN 6.8 g/dL (6.4-8.2)
[2020-07-02 11:00] VITALS: BP 110/59
[2020-07-02] MEDS ORDERED: POLYETHYLENE GLYCOL 3350 BTL 238 GM POWDER PO ONE (12:00)
[2020-07-02] MEDS: IV NORMAL SALINE 1000ML BAG 1,000 ML IV SCH ×2 (13:15→21:25)
[2020-07-02 15:00] VITALS: BP 137/71
[2020-07-02] MEDS ORDERED: FUROSEMIDE 40 MG TABLET. PO PRN (17:45)
[2020-07-02] MEDS: fentaNYL 50MCG/HR PATCH 1 PATCH PATCH.TD72 TD SCH (18:00)
--- NOTE | 2020-07-02 18:45 | NUR ---
fent patch nonadmin d/t pt just put one on right shoulder on 07/01 so is not due until 07/04
[2020-07-02 19:00] VITALS: BP 176/66
[2020-07-02] MEDS: MONTELUKAST SODIUM 10 MG TABLET. PO SCH (21:24)
[2020-07-02] MEDS: tiZANidine 4 MG TABLET. PO SCH (21:24)
[2020-07-02] MEDS: ATORVASTATIN CALCIUM 40 MG TABLET. PO SCH (21:24)
[2020-07-02 23:00] VITALS: BP 117/58
[2020-07-02] MEDS ORDERED: BISACODYL 10 MG SUPP.RECT. PR PRN (23:00)
[2020-07-02] MEDS: MAGNESIUM HYDROXIDE 2,400 MG/30 ML ORAL.SUSP. PO PRN (23:23)
[2020-07-03] MEDS: MORPHINE IR 15 MG TABLET PO PRN ×4 (00:18→20:28)
[2020-07-03 03:00] VITALS: BP 133/60
[2020-07-03] MEDS: MORPHINE SULFATE 4 MG/ML VIAL. IV PRN ×2 (03:04→05:58)
[2020-07-03 07:00] VITALS: BP 146/69
[2020-07-03 07:05] LABS: HEMATOCRIT 33.4 % (36.0-47.0); HEMOGLOBIN 11.2 g/dL (12.0-15.5); RED BLOOD COUNT 3.53 x10^6/uL (3.50-5.40); RED CELL DISTRIBUTION WIDTH 14.2 % (11.5-14.5); WHITE BLOOD COUNT 4.2 x10^3/uL (4.0-11.0)
[2020-07-03] MEDS: PANTOPRAZOLE 40 MG TABLET.DR. PO SCH (07:48)
[2020-07-03] MEDS: ONDANSETRON PF 4 MG/2 ML VIAL. IVP PRN (07:48)
[2020-07-03] MEDS: CARVEDILOL 6.25 MG TABLET. PO SCH ×2 (08:33→16:46)
[2020-07-03] MEDS: CLOPIDOGREL BISULFATE 75 MG TABLET PO SCH (08:33)
[2020-07-03] MEDS: tiZANidine 4 MG TABLET. PO SCH ×3 (08:34→20:28)
[2020-07-03] MEDS: CYANOCOBALAMIN (VITAMIN B-12) 1,000 MCG/ML VIAL IM SCH (08:36)
[2020-07-03] MEDS: DICLOFENAC SODIUM 1% TOPICAL GEL 100GM TUBE. TP SCH ×2 (08:36→21:00)
[2020-07-03] MEDS: POLYETHYLENE GLYCOL 3350 17 GM PACKET. PO SCH (08:37)
[2020-07-03] MEDS: amLODIPine BESYLATE 5 MG TABLET PO SCH (09:00)
--- NOTE | 2020-07-03 10:40 | PDOC ---
PROGRESS NOTES Date of Service: DATE: 07/03/20 TIME: 10:40 Chief Complaint Chief Complaint ASSESSMENT AND PLAN: Abdominal pain. INTRACTABLE morbid obesity LLQ pain-with history of polyps and diveritcular disease. Opoiod induced constipation leads differential r/o Malignancy, ischeimc coliits, recurrent colon polyps Moderate colonic stool content. Colonic diverticulosis without evidence for acute diverticulitis. Cholelithiasis without CT evidence for acute cholecystitis. Hypodense splenic lesion likely cyst. Nonobstructive right interpolar renal calculus. fatty liver. admitted. consult GI. IV fluids, home meds, DVT prophylaxis. Full code. P.r.n. pain meds. 07/03 STILL NOTES BLOOD IN STOOL HGB STABLE D/W RN History of Present Illness History of Present Illness pleasant middle-aged female, who presented to the ER with abdominal pain. She has associated nausea. It has been occurring for a couple of days. She tried taking some [id number] meds, but that did not help. She does have a previous history of diverticulitis. We did a CAT scan here in the ER, it is showing some diverticular disease without obvious inflammation. She also has moderate colonic stool and gallstones. Vitals Vitals Vital Signs Date Time Temp Pulse Resp B/P (MAP) Pulse Ox O2 Delivery O2 Flow Rate FiO2 07/03/20 08:48 Room Air 07/03/20 08:33 78 146/69 07/03/20 07:00 97.7 16 94 97.7 Physical Exam Physical Exam HEENT: Normal cephalic atraumatic, external auditory canals are patent. EYES: Extraocular muscles are intact, pupils are equally round and reactive to light and accommodation. MUSCULOSKELETAL: Well developed, well nourished, good range of motion. ENDOCRINE: No thyromegaly was palpated. LYMPHATICS: No cervical chain or axillary nodes were noted. HEMATOPOIETIC: No bruising. NECK: Supple, no JVD, no thyromegaly was noted. LUNGS: Clear to auscultation in all lung masterson without rhonchi or wheezing. CHEST: She does have a left chest Port-A-Cath. HEART: RRR, S1, S2 present. Peripheral pulses intact, no obvious murmurs were noted. ABDOMEN: She has decreased bowel sounds with pain in the left lower quadrant. EXTREMITIES: Without any cyanosis, clubbing, or edema. Pedal pulses intact, Homans sign is negative. NEUROLOGIC: Normal speech, normal tone. A & O x3, moves all extremities, no obvious focal deficits. PSYCHIATRIC: Normal affect, normal mood. Stable. SKIN: No ulcerations or rashes, good skin turgor, no jaundice. VASCULAR: Good capillary refill, neurovascular bundle appears to be intact. General: Alert, Oriented X3, Cooperative, No acute distress Heart: Regular rate, No murmurs Lungs: Clear Abdomen: Soft, No tenderness Extremities: No cyanosis, No edema Skin: No significant lesion Labs LABS Laboratory Tests Test 07/02/20 11:39 07/02/20 16:53 07/02/20 21:18 07/03/20 06:30 Glucose (Fingerstick) 134 mg/dL (70-99) 159 mg/dL (70-99) 127 mg/dL (70-99) White Blood Count 4.2 x10^3/uL (4.0-11.0) Red Blood Count 3.53 x10^6/uL (3.50-5.40) Hemoglobin 11.2 g/dL (12.0-15.5) Hematocrit 33.4 % (36.0-47.0) Mean Corpuscular Volume 95 fL (79-100) Mean Corpuscular Hemoglobin 32 pg (25-35) Mean Corpuscular Hemoglobin Concent 34 g/dL (31-37) Red Cell Distribution Width 14.2 % (11.5-14.5) Platelet Count 149 x10^3/uL (140-400) Test 07/03/20 07:04 Glucose (Fingerstick) 143 mg/dL (70-99) Assessment and Plan Assessmemt and Plan Problems Medical Problems: (1) Diverticulosis Status: Acute (2) Gallstones Status: Acute (3) Intractable abdominal pain Status: Acute Comment Review of Relevant I have reviewed the following items shayne (where applicable) has been applied. Labs Laboratory Tests Test 07/01/20 16:45 07/01/20 22:00 07/02/20 07:46 07/02/20 10:30 White Blood Count 5.1 x10^3/uL (4.0-11.0) 3.9 x10^3/uL (4.0-11.0) Red Blood Count 3.63 x10^6/uL (3.50-5.40) 3.36 x10^6/uL (3.50-5.40) Hemoglobin 11.7 g/dL (12.0-15.5) 10.8 g/dL (12.0-15.5) Hematocrit 34.9 % (36.0-47.0) 32.3 % (36.0-47.0) Mean Corpuscular Volume 96 fL (79-100) 96 fL (79-100) Mean Corpuscular Hemoglobin 32 pg (25-35) 32 pg (25-35) Mean Corpuscular Hemoglobin Concent 34 g/dL (31-37) 33 g/dL (31-37) Red Cell Distribution Width 14.3 % (11.5-14.5) 14.3 % (11.5-14.5) Platelet Count 146 x10^3/uL (140-400) 132 x10^3/uL (140-400) Neutrophils (%) (Auto) 68 % (31-73) 64 % (31-73) Lymphocytes (%) (Auto) 23 % (24-48) 27 % (24-48) Monocytes (%) (Auto) 6 % (0-9) 7 % (0-9) Eosinophils (%) (Auto) 1 % (0-3) 2 % (0-3) Basophils (%) (Auto) 1 % (0-3) 1 % (0-3) Neutrophils # (Auto) 3.5 x10^3/uL (1.8-7.7) 2.5 x10^3/uL (1.8-7.7) Lymphocytes # (Auto) 1.2 x10^3/uL (1.0-4.8) 1.1 x10^3/uL (1.0-4.8) Monocytes # (Auto) 0.3 x10^3/uL (0.0-1.1) 0.3 x10^3/uL (0.0-1.1) Eosinophils # (Auto) 0.1 x10^3/uL (0.0-0.7) 0.1 x10^3/uL (0.0-0.7) Basophils # (Auto) 0.1 x10^3/uL (0.0-0.2) 0.0 x10^3/uL (0.0-0.2) Prothrombin Time 14.0 SEC (11.7-14.0) Prothromb Time International Ratio 1.1 (0.8-1.1) Activated Partial Thromboplast Time 89 SEC (24-38) Sodium Level 137 mmol/L (136-145) 141 mmol/L (136-145) Potassium Level 3.8 mmol/L (3.5-5.1) 3.7 mmol/L (3.5-5.1) Chloride Level 100 mmol/L (98-107) 104 mmol/L (98-107) Carbon Dioxide Level 29 mmol/L (21-32) 31 mmol/L (21-32) Anion Gap 8 (6-14) 6 (6-14) Blood Urea Nitrogen 10 mg/dL (7-20) 8 mg/dL (7-20) Creatinine 0.8 mg/dL (0.6-1.0) 0.6 mg/dL (0.6-1.0) Estimated GFR (Cockcroft-Gault) 70.7 98.5 BUN/Creatinine Ratio 13 (6-20) 13 (6-20) Glucose Level 275 mg/dL (70-99) 134 mg/dL (70-99) Calcium Level 8.4 mg/dL (8.5-10.1) 7.7 mg/dL (8.5-10.1) Magnesium Level 1.7 mg/dL (1.8-2.4) Total Bilirubin 0.7 mg/dL (0.2-1.0) 0.9 mg/dL (0.2-1.0) Aspartate Amino Transf (AST/SGOT) 19 U/L (15-37) 19 U/L (15-37) Alanine Aminotransferase (ALT/SGPT) 24 U/L (14-59) 22 U/L (14-59) Alkaline Phosphatase 63 U/L (46-116) 49 U/L (46-116) Total Protein 7.4 g/dL (6.4-8.2) 6.8 g/dL (6.4-8.2) Albumin 3.4 g/dL (3.4-5.0) 3.0 g/dL (3.4-5.0) Albumin/Globulin Ratio 0.9 (1.0-1.7) 0.8 (1.0-1.7) Lipase 74 U/L (73-393) Ethyl Alcohol Level < 10 mg/dL (0-10) Urine Collection Type Unknown Urine Color Yellow Urine Clarity Clear Urine pH 5.5 (<5.0-8.0) Urine Specific [place] >=1.030 (1.000-1.030) Urine Protein Negative mg/dL (NEG-TRACE) Urine Glucose (UA) Negative mg/dL (NEG) Urine Ketones (Stick) Negative mg/dL (NEG) Urine Blood Negative (NEG) Urine Nitrite Negative (NEG) Urine Bilirubin Negative (NEG) Urine Urobilinogen Dipstick 1.0 mg/dL (0.2 mg/dL) Urine Leukocyte Esterase Negative (NEG) Urine RBC Rare /HPF (0-2) Urine WBC 0 /HPF (0-4) Urine Squamous Epithelial Cells Occ /LPF Urine Bacteria 0 /HPF (0-FEW) Urine Opiates Screen Pos (NEG) Urine Methadone Screen Neg (NEG) Urine Barbiturates Neg (NEG) Urine Phencyclidine Screen Neg (NEG) Urine Amphetamine/Methamphetamine Neg (NEG) Urine Benzodiazepines Screen Neg (NEG) Urine Cocaine Screen Neg (NEG) Urine Cannabinoids Screen Neg (NEG) Urine Ethyl Alcohol Neg (NEG) Glucose (Fingerstick) 140 mg/dL (70-99) Test 07/02/20 11:39 07/02/20 16:53 07/02/20 21:18 07/03/20 06:30 Glucose (Fingerstick) 134 mg/dL (70-99) 159 mg/dL (70-99) 127 mg/dL (70-99) White Blood Count 4.2 x10^3/uL (4.0-11.0) Red Blood Count 3.53 x10^6/uL (3.50-5.40) Hemoglobin 11.2 g/dL (12.0-15.5) Hematocrit 33.4 % (36.0-47.0) Mean Corpuscular Volume 95 fL (79-100) Mean Corpuscular Hemoglobin 32 pg (25-35) Mean Corpuscular Hemoglobin Concent 34 g/dL (31-37) Red Cell Distribution Width 14.2 % (11.5-14.5) Platelet Count 149 x10^3/uL (140-400) Test 07/03/20 07:04 Glucose (Fingerstick) 143 mg/dL (70-99) Laboratory Tests Test 07/02/20 11:39 07/02/20 16:53 07/02/20 21:18 07/03/20 06:30 Glucose (Fingerstick) 134 mg/dL (70-99) 159 mg/dL (70-99) 127 mg/dL (70-99) White Blood Count 4.2 x10^3/uL (4.0-11.0) Red Blood Count 3.53 x10^6/uL (3.50-5.40) Hemoglobin 11.2 g/dL (12.0-15.5) Hematocrit 33.4 % (36.0-47.0) Mean Corpuscular Volume 95 fL (79-100) Mean Corpuscular Hemoglobin 32 pg (25-35) Mean Corpuscular Hemoglobin Concent 34 g/dL (31-37) Red Cell Distribution Width 14.2 % (11.5-14.5) Platelet Count 149 x10^3/uL (140-400) Test 07/03/20 07:04 Glucose (Fingerstick) 143 mg/dL (70-99) Medications Current Medications Famotidine (Pepcid Vial) 20 mg 1X ONCE IVP Last administered on 07/01/20at 17:09; Start 07/01/20 at 16:45; Stop 07/01/20 at 16:47; Status DC Ondansetron HCl (Zofran) 4 mg 1X ONCE IVP Last administered on 07/01/20at 17:06; Start 07/01/20 at 16:45; Stop 07/01/20 at 16:47; Status DC Morphine Sulfate (Morphine Sulfate) 5 mg 1X ONCE IV Last administered on 07/01/20at 17:11; Start 07/01/20 at 16:45; Stop 07/01/20 at 16:47; Status DC Sodium Chloride 1,000 ml @ 1,000 mls/hr 1X ONCE IV Last administered on 07/01/20at 16:45; Start 07/01/20 at 16:45; Stop 07/01/20 at 17:44; Status DC Iohexol (Omnipaque 300 Mg/ml) 75 ml 1X ONCE IV Last administered on 07/01/20at 17:42; Start 07/01/20 at 18:00; Stop 07/01/20 at 18:01; Status DC Info (CONTRAST GIVEN -- Rx MONITORING) 1 each PRN DAILY PRN MC SEE COMMENTS; Start 07/01/20 at 17:45; Stop 07/03/20 at 17:44 Hydromorphone HCl (Dilaudid) 1 mg 1X ONCE IV Last administered on 07/01/20at 19:38; Start 07/01/20 at 19:30; Stop 07/01/20 at 19:31; Status DC Ondansetron HCl (Zofran) 4 mg PRN Q8HRS PRN IV NAUSEA/VOMITING; Start 07/01/20 at 20:15; Stop 07/02/20 at 20:14; Status DC Morphine Sulfate (Morphine Sulfate) 4 mg PRN Q2HR PRN IV PAIN Last administered on 07/02/20at 19:04; Start 07/01/20 at 20:15; Stop 07/02/20 at 20:14; Status DC Hydromorphone HCl (Dilaudid) 1 mg 1X ONCE IV Last administered on 07/01/20at 20:26; Start 07/01/20 at 20:15; Stop 07/01/20 at 20:16; Status DC Dextrose (Dextrose 50%-Water Syringe) 12.5 gm PRN Q15MIN PRN IV SEE COMMENTS; Start 07/01/20 at 21:30 Fentanyl Citrate (Fentanyl 2ml Vial) 50 mcg PRN Q2HR PRN IVP SEVERE PAIN 7-10 Last administered on 07/02/20at 21:25; Start 07/02/20 at 02:45; Stop 07/02/20 at 23:03; Status DC Polyethylene Glycol (miraLAX PACKET) 17 gm DAILY PO Last administered on 07/02/20at 10:19; Start 07/02/20 at 09:00 Diclofenac Sodium (Voltaren) 1 matthew BID TP Last administered on 07/03/20at 08:36; Start 07/02/20 at 09:00 Polyethylene Glycol (miraLAX Powder BULK BOTTLE) 238 gm 1X ONCE PO Last administered on 07/02/20at 12:11; Start 07/02/20 at 12:00; Stop 07/02/20 at 12:01; Status DC Pantoprazole Sodium (Protonix) 40 mg DAILYAC PO Last administered on 07/03/20 07:48; Start 07/03/20 at 07:30 Cyanocobalamin (Vitamin B-12) 1,000 mcg DAILY IM Last administered on 07/03/20 08:36; Start 07/03/20 at 09:00 Sodium Chloride 1,000 ml @ 75 mls/hr [id number] IV Last administered on 07/02/20 21:25; Start 07/02/20 at 13:15 Atorvastatin Calcium (Lipitor) 40 mg HS PO Last administered on 07/02/20 21:24; Start 07/02/20 at 21:00 Carvedilol (Coreg) 6.25 mg BIDWMEALS PO Last administered on 07/03/20 08:33; Start 07/03/20 at 08:00 Clopidogrel Bisulfate (Plavix) 75 mg DAILY PO Last administered on 07/03/20 08:33; Start 07/03/20 at 09:00 Fentanyl (Duragesic 50mcg/ Hr Patch) 1 patch Q72H TD ; Start 07/02/20 at 18:00 Furosemide (Lasix) 40 mg PRN DAILY PRN PO leg swelling; Start 07/02/20 at 17:45 Montelukast Sodium (Singulair) 10 mg HS PO Last administered on 07/02/20 21:24; Start 07/02/20 at 21:00 Tizanidine HCl (Zanaflex) 4 mg TID PO Last administered on 07/03/20 08:34; Start 07/02/20 at 21:00 Amlodipine Besylate (Norvasc) 2.5 mg DAILY PO ; Start 07/03/20 at 09:00 Morphine Sulfate (Morphine Sulfate) 4 mg PRN Q2HR PRN IV SEVERE PAIN 7-10 Last administered on 07/03/20 05:58; Start 07/02/20 at 23:00 Morphine Sulfate (Morphine Ir) 15 mg PRN Q4HRS PRN PO SEVERE PAIN 7-10 Last administered on 07/03/20 07:48; Start 07/02/20 at 23:00 Magnesium Hydroxide (Milk Of Magnesia) 2,400 mg PRN DAILY PRN PO CONSTIPATION 1ST CHOICE Last administered on 07/02/20 23:23; Start 07/02/20 at 23:00 Bisacodyl (Dulcolax Supp) 10 mg PRN DAILY PRN HI CONSTIPATION 2ND CHOICE; Start 07/02/20 at 23:00 Ondansetron HCl (Zofran) 4 mg PRN Q6HRS PRN IVP NAUSEA/VOMITING Last administered on 07/03/20at 07:48; Start 07/03/20 at 07:30 Active Scripts Active [Diclofenac Sodium] 100 GM Gel..gram. 1 Matthew TP BID 7 Days Tizanidine Hcl 4 Mg Tablet 4 Mg PO TID 30 Days Reported Amlodipine Besylate 2.5 Mg Tablet 2.5 Mg PO DAILY Omeprazole 40 Mg Capsule.dr 1 Cap PO DAILY Carvedilol (Carvedilol) 6.25 Mg Tablet 6.25 Mg PO BIDWMEALS Ibuprofen 800 Mg Tablet 800 Mg PO PRN BID PRN Atorvastatin Calcium 40 Mg Tablet 40 Mg PO HS Clopidogrel (Clopidogrel Bisulfate) 75 Mg Tablet 75 Mg PO DAILY Montelukast Sodium Tablet (Montelukast Sodium) 10 Mg Tablet 10 Mg PO HS Celexa (Citalopram Hydrobromide) 40 Mg Tablet 40 Mg PO HS Lasix (Furosemide) 40 Mg Tablet 40 Mg PO DAILY PRN Metformin Hcl 500 Mg Tablet 500 Mg PO DAILY08 FENTANYL 50mcg/hr (Fentanyl) 1 Each Patch.td72 1 Patch TD Q72H Vitals/I & O Vital Sign - Last 24 Hours 07/02/20 07/02/20 07/02/20 07/02/20 11:00 15:00 19:00 20:10 Temp 98.8 98.1 98.1 98.8 98.1 98.1 Pulse 88 80 79 Resp 16 16 18 B/P (MAP) 110/59 (76) 137/71 (93) 176/66 (102) Pulse Ox 90 92 96 O2 Delivery Room Air Room Air Room Air Room Air 07/02/20 07/02/20 07/02/20 07/02/20 21:25 21:55 23:00 23:29 Temp 97.9 97.9 Pulse 67 Resp 20 20 18 20 B/P (MAP) 117/58 (77) Pulse Ox 96 O2 Delivery Room Air Room Air Room Air 07/02/20 07/03/20 07/03/20 07/03/20 23:59 00:18 01:18 03:00 Temp 98.6 98.6 Pulse 74 Resp 20 B/P (MAP) 133/60 (84) Pulse Ox 94 O2 Delivery Room Air Room Air Room Air 07/03/20 07/03/20 07/03/20 07/03/20 03:04 03:34 05:58 06:28 Resp 20 18 O2 Delivery Room Air Room Air Room Air Room Air 07/03/20 07/03/20 07/03/20 07/03/20 07:00 07:48 08:33 08:48 Temp 97.7 97.7 Pulse 78 78 Resp 16 B/P (MAP) 146/69 (94) 146/69 Pulse Ox 94 O2 Delivery Room Air Room Air Room Air Intake and Output 07/02/20 07/02/20 07/03/20 15:00 23:00 07:00 Intake Total 240 ml 1480 ml 350 ml Output Total 600 ml Balance 240 ml 1480 ml -250 ml Justicifation of Admission Dx: Justifications for Admission: Justification of Admission Dx: Comment: (Intractable abdominal pain) JAN CLEMONS MD Jul 03, 2020 10:40
[2020-07-03 11:00] VITALS: BP 74/41
[2020-07-03] MEDS: IV NORMAL SALINE 1000ML BAG 1,000 ML IV SCH (11:03)
[2020-07-03] MEDS ORDERED: IV NORMAL SALINE 1000ML BAG 1,000 ML IV ONE (11:15)
[2020-07-03 15:00] VITALS: BP 150/84
--- NOTE | 2020-07-03 16:07 | PDOC ---
GI PROGRESS NOTES Date of Service: Date/Time DATE: 07/03/20 TIME: 16:05 Subjective Subjective Still with abdominal pain (stabbing crampy pain) but did have a small stool but mostly liquid. Was able to tolerate most of the MiraLAX prep but did not have a good response so far. Objective Vitals Vital Signs Date Time Temp Pulse Resp B/P (MAP) Pulse Ox O2 Delivery O2 Flow Rate FiO2 07/03/20 15:00 98.0 76 18 150/84 (106) 99 Room Air 98.0 07/03/20 14:42 Room Air 07/03/20 11:00 97.7 72 16 74/41 (52) 97 Room Air 97.7 07/03/20 08:48 Room Air 07/03/20 08:33 78 146/69 07/03/20 08:00 Room Air 07/03/20 07:48 Room Air 07/03/20 07:00 97.7 78 16 146/69 (94) 94 Room Air 97.7 07/03/20 06:28 18 Room Air 07/03/20 05:58 20 Room Air 07/03/20 03:34 18 Room Air 07/03/20 03:04 20 Room Air 07/03/20 03:00 98.6 74 20 133/60 (84) 94 98.6 07/03/20 01:18 20 Room Air 07/03/20 00:18 20 Room Air 07/02/20 23:59 20 Room Air 07/02/20 23:29 20 Room Air 07/02/20 23:00 97.9 67 18 117/58 (77) 96 97.9 07/02/20 21:55 20 Room Air 07/02/20 21:25 20 Room Air 07/02/20 20:10 Room Air 07/02/20 19:00 98.1 79 18 176/66 (102) 96 Room Air 98.1 Labs Labs Laboratory Tests Test 07/02/20 16:53 07/02/20 21:18 07/03/20 06:30 07/03/20 07:04 Glucose (Fingerstick) 159 mg/dL (70-99) 127 mg/dL (70-99) 143 mg/dL (70-99) White Blood Count 4.2 x10^3/uL (4.0-11.0) Red Blood Count 3.53 x10^6/uL (3.50-5.40) Hemoglobin 11.2 g/dL (12.0-15.5) Hematocrit 33.4 % (36.0-47.0) Mean Corpuscular Volume 95 fL (79-100) Mean Corpuscular Hemoglobin 32 pg (25-35) Mean Corpuscular Hemoglobin Concent 34 g/dL (31-37) Red Cell Distribution Width 14.2 % (11.5-14.5) Platelet Count 149 x10^3/uL (140-400) Physical Exam Physical Exam Chest clear Heart regular rate and rhythm Abdomen soft, diffusely tender subjectively, no rebound or masses. Assessment Assessment Abdominal pain. Diverticulosis with constipation is the most likely source. No evidence for diverticulitis on CT. Has had an incomplete response to a MiraLAX bowel prep. She is on narcotic pain medication so we will use relistor and dicyclomine to help with management Rectal bleeding seems to have improved. Hemoglobin fortunately has remained stable Justicifation of Admission Dx: Justifications for Admission: Justification of Admission Dx: Comment: (Intractable abdominal pain) RAHUL ROB MD Jul 03, 2020 16:07
[2020-07-03] MEDS ORDERED: METHYLNALTREXONE 12 MG/0.6 ML VIAL. SQ ONE (16:15)
[2020-07-03] MEDS: DICYCLOMINE HCL 10 MG CAPSULE PO PRN (16:45)
[2020-07-03 19:32] VITALS: BP 112/46
[2020-07-03] MEDS: MONTELUKAST SODIUM 10 MG TABLET. PO SCH (20:27)
[2020-07-03] MEDS: ATORVASTATIN CALCIUM 40 MG TABLET. PO SCH (20:27)
[2020-07-03 22:56] VITALS: BP 122/62
[2020-07-04] MEDS: DICYCLOMINE HCL 10 MG CAPSULE PO PRN (00:29)
[2020-07-04] MEDS: MORPHINE IR 15 MG TABLET PO PRN ×5 (00:29→22:33)
[2020-07-04 03:21] VITALS: BP 142/50
[2020-07-04 07:00] VITALS: BP 139/73
[2020-07-04] MEDS: DICLOFENAC SODIUM 1% TOPICAL GEL 100GM TUBE. TP SCH ×2 (09:00→21:24)
[2020-07-04] MEDS: amLODIPine BESYLATE 5 MG TABLET PO SCH ×2 (09:00→09:47)
[2020-07-04] MEDS: POLYETHYLENE GLYCOL 3350 17 GM PACKET. PO SCH (09:00)
[2020-07-04] MEDS: PANTOPRAZOLE 40 MG TABLET.DR. PO SCH (09:46)
[2020-07-04] MEDS: tiZANidine 4 MG TABLET. PO SCH ×3 (09:46→21:23)
[2020-07-04] MEDS: CLOPIDOGREL BISULFATE 75 MG TABLET PO SCH (09:46)
[2020-07-04] MEDS: CARVEDILOL 6.25 MG TABLET. PO SCH ×2 (09:46→16:58)
[2020-07-04] MEDS: IV NORMAL SALINE 1000ML BAG 1,000 ML IV SCH ×2 (09:54→21:23)
[2020-07-04] MEDS: CYANOCOBALAMIN (VITAMIN B-12) 1,000 MCG/ML VIAL IM SCH (09:54)
--- NOTE | 2020-07-04 10:39 | PDOC ---
GI PROGRESS NOTES Date of Service: Date/Time DATE: 07/04/20 TIME: 10:37 Subjective Subjective Flat affect, continuing to complain of left lower quadrant pain in spite of bowel movements yesterday. No upper abdominal pain reported this morning. Ask whether we are going to do a colonoscopy to figure this out? Objective Vitals Vital Signs Date Time Temp Pulse Resp B/P (MAP) Pulse Ox O2 Delivery O2 Flow Rate FiO2 07/04/20 09:46 84 139/73 07/04/20 08:30 Room Air 07/04/20 05:27 96 Room Air 07/04/20 03:21 98.0 78 20 142/50 (80) 96 Room Air 98.0 07/04/20 01:29 20 Room Air 07/04/20 00:29 22 Room Air 07/03/20 22:56 97.8 74 20 122/62 (82) 96 Room Air 97.8 07/03/20 21:28 20 Room Air 07/03/20 20:28 20 Room Air 07/03/20 19:50 Room Air 07/03/20 19:32 98.2 64 14 112/46 (68) 98 Room Air 98.2 07/03/20 15:42 Room Air 07/03/20 15:00 98.0 76 18 150/84 (106) 99 Room Air 98.0 07/03/20 14:42 Room Air 07/03/20 11:00 97.7 72 16 74/41 (52) 97 Room Air 97.7 Labs Labs Laboratory Tests Test 07/03/20 12:10 07/03/20 16:47 07/03/20 22:52 07/04/20 07:52 Glucose (Fingerstick) 192 mg/dL (70-99) 175 mg/dL (70-99) 142 mg/dL (70-99) 111 mg/dL (70-99) Physical Exam Physical Exam Chest clear Heart regular rate and rhythm Abdomen soft, left lower quadrant tender subjectively, no rebound or masses. Assessment Assessment Abdominal pain. Diverticulosis with constipation is the most likely source. No evidence for diverticulitis on CT. Has had an incomplete response to a MiraLAX bowel prep. She is on narcotic pain medication so we will use relistor and dicyclomine to help with management Rectal bleeding seems to have improved. Hemoglobin fortunately has remained stable Plan Plan Only had several bowel movements in response to MiraLAX and Relistor Probably will need additional bowel prep if colonoscopy is planned. I will defer this to Dr. Jimenez Justicifation of Admission Dx: Justifications for Admission: Justification of Admission Dx: Comment: (Intractable abdominal pain) RAHUL ROB MD Jul 04, 2020 10:39
[2020-07-04 11:00] VITALS: BP 110/49
--- NOTE | 2020-07-04 11:02 | PDOC ---
PROGRESS NOTES Date of Service: DATE: 07/04/20 TIME: 11:02 Chief Complaint Chief Complaint ASSESSMENT AND PLAN: Abdominal pain. INTRACTABLE morbid obesity LLQ pain-with history of polyps and diveritcular disease. Opoiod induced constipation leads differential r/o Malignancy, ischeimc coliits, recurrent colon polyps Moderate colonic stool content. Colonic diverticulosis without evidence for acute diverticulitis. Cholelithiasis without CT evidence for acute cholecystitis. Hypodense splenic lesion likely cyst. Nonobstructive right interpolar renal calculus. fatty liver. admitted. consult GI. IV fluids, home meds, DVT prophylaxis. Full code. P.r.n. pain meds. need additional bowel prep if colonoscopy is planned. 07/03 STILL NOTES BLOOD IN STOOL HGB STABLE d/w RN History of Present Illness History of Present Illness pleasant middle-aged female, who presented to the ER with abdominal pain. She has associated nausea. It has been occurring for a couple of days. She tried taking some thyo-aau-ixsmdng meds, but that did not help. She does have a previous history of diverticulitis. We did a CAT scan here in the ER, it is showing some diverticular disease without obvious inflammation. She also has moderate colonic stool and gallstones. Vitals Vitals Vital Signs Date Time Temp Pulse Resp B/P (MAP) Pulse Ox O2 Delivery O2 Flow Rate FiO2 07/04/20 09:46 84 139/73 07/04/20 08:30 Room Air 07/04/20 07:00 98.2 16 95 98.2 Physical Exam Physical Exam HEENT: Normal cephalic atraumatic, external auditory canals are patent. EYES: Extraocular muscles are intact, pupils are equally round and reactive to light and accommodation. MUSCULOSKELETAL: Well developed, well nourished, good range of motion. ENDOCRINE: No thyromegaly was palpated. LYMPHATICS: No cervical chain or axillary nodes were noted. HEMATOPOIETIC: No bruising. NECK: Supple, no JVD, no thyromegaly was noted. LUNGS: Clear to auscultation in all lung masterson without rhonchi or wheezing. CHEST: She does have a left chest Port-A-Cath. HEART: RRR, S1, S2 present. Peripheral pulses intact, no obvious murmurs were noted. ABDOMEN: She has decreased bowel sounds with pain in the left lower quadrant. EXTREMITIES: Without any cyanosis, clubbing, or edema. Pedal pulses intact, Homans sign is negative. NEUROLOGIC: Normal speech, normal tone. A & O x3, moves all extremities, no obvious focal deficits. PSYCHIATRIC: Normal affect, normal mood. Stable. SKIN: No ulcerations or rashes, good skin turgor, no jaundice. VASCULAR: Good capillary refill, neurovascular bundle appears to be intact. General: Alert, Oriented X3, Cooperative, No acute distress Heart: Regular rate, No murmurs Lungs: Clear Abdomen: Soft, No tenderness Extremities: No cyanosis, No edema Skin: No significant lesion Labs LABS Laboratory Tests Test 07/03/20 12:10 07/03/20 16:47 07/03/20 22:52 07/04/20 07:52 Glucose (Fingerstick) 192 mg/dL (70-99) 175 mg/dL (70-99) 142 mg/dL (70-99) 111 mg/dL (70-99) Assessment and Plan Assessmemt and Plan Problems Medical Problems: (1) Diverticulosis Status: Acute (2) Gallstones Status: Acute (3) Intractable abdominal pain Status: Acute Comment Review of Relevant I have reviewed the following items shayne (where applicable) has been applied. Labs Laboratory Tests Test 07/02/20 11:39 07/02/20 16:53 07/02/20 21:18 07/03/20 06:30 Glucose (Fingerstick) 134 mg/dL (70-99) 159 mg/dL (70-99) 127 mg/dL (70-99) White Blood Count 4.2 x10^3/uL (4.0-11.0) Red Blood Count 3.53 x10^6/uL (3.50-5.40) Hemoglobin 11.2 g/dL (12.0-15.5) Hematocrit 33.4 % (36.0-47.0) Mean Corpuscular Volume 95 fL (79-100) Mean Corpuscular Hemoglobin 32 pg (25-35) Mean Corpuscular Hemoglobin Concent 34 g/dL (31-37) Red Cell Distribution Width 14.2 % (11.5-14.5) Platelet Count 149 x10^3/uL (140-400) Test 07/03/20 07:04 07/03/20 12:10 07/03/20 16:47 07/03/20 22:52 Glucose (Fingerstick) 143 mg/dL (70-99) 192 mg/dL (70-99) 175 mg/dL (70-99) 142 mg/dL (70-99) Test 07/04/20 07:52 Glucose (Fingerstick) 111 mg/dL (70-99) Laboratory Tests Test 07/03/20 12:10 07/03/20 16:47 07/03/20 22:52 07/04/20 07:52 Glucose (Fingerstick) 192 mg/dL (70-99) 175 mg/dL (70-99) 142 mg/dL (70-99) 111 mg/dL (70-99) Medications Current Medications Famotidine (Pepcid Vial) 20 mg 1X ONCE IVP Last administered on 07/01/20at 17:09; Start 07/01/20 at 16:45; Stop 07/01/20 at 16:47; Status DC Ondansetron HCl (Zofran) 4 mg 1X ONCE IVP Last administered on 07/01/20at 17:06; Start 07/01/20 at 16:45; Stop 07/01/20 at 16:47; Status DC Morphine Sulfate (Morphine Sulfate) 5 mg 1X ONCE IV Last administered on at 17:11; Start 07/01/20 at 16:45; Stop 07/01/20 at 16:47; Status DC Sodium Chloride 1,000 ml @ 1,000 mls/hr 1X ONCE IV Last administered on 07/01/20at 16:45; Start 07/01/20 at 16:45; Stop 07/01/20 at 17:44; Status DC Iohexol (Omnipaque 300 Mg/ml) 75 ml 1X ONCE IV Last administered on 07/01/20at 17:42; Start 07/01/20 at 18:00; Stop 07/01/20 at 18:01; Status DC Info (CONTRAST GIVEN -- Rx MONITORING) 1 each PRN DAILY PRN MC SEE COMMENTS; Start 07/01/20 at 17:45; Stop 07/03/20 at 17:44; Status DC Hydromorphone HCl (Dilaudid) 1 mg 1X ONCE IV Last administered on 07/01/20at 19:38; Start 07/01/20 at 19:30; Stop 07/01/20 at 19:31; Status DC Ondansetron HCl (Zofran) 4 mg PRN Q8HRS PRN IV NAUSEA/VOMITING; Start 07/01/20 at 20:15; Stop 07/02/20 at 20:14; Status DC Morphine Sulfate (Morphine Sulfate) 4 mg PRN Q2HR PRN IV PAIN Last administered on 07/02/20at 19:04; Start 07/01/20 at 20:15; Stop 07/02/20 at 20:14; Status DC Hydromorphone HCl (Dilaudid) 1 mg 1X ONCE IV Last administered on 07/01/20at 20:26; Start 07/01/20 at 20:15; Stop 07/01/20 at 20:16; Status DC Dextrose (Dextrose 50%-Water Syringe) 12.5 gm PRN Q15MIN PRN IV SEE COMMENTS; Start 07/01/20 at 21:30 Fentanyl Citrate (Fentanyl 2ml Vial) 50 mcg PRN Q2HR PRN IVP SEVERE PAIN 7-10 Last administered on 07/02/20at 21:25; Start 07/02/20 at 02:45; Stop 07/02/20 at 23:03; Status DC Polyethylene Glycol (miraLAX PACKET) 17 gm DAILY PO Last administered on 07/02/20at 10:19; Start 07/02/20 at 09:00 Diclofenac Sodium (Voltaren) 1 matthew BID TP Last administered on 07/03/20 08:36; Start 07/02/20 at 09:00 Polyethylene Glycol (miraLAX Powder BULK BOTTLE) 238 gm 1X ONCE PO Last admin istered on 07/02/20at 12:11; Start 07/02/20 at 12:00; Stop 07/02/20 at 12:01; Status DC Pantoprazole Sodium (Protonix) 40 mg DAILYAC PO Last administered on 07/04/20 09:46; Start 07/03/20 at 07:30 Cyanocobalamin (Vitamin B-12) 1,000 mcg DAILY IM Last administered on 07/04/20 09:54; Start 07/03/20 at 09:00 Sodium Chloride 1,000 ml @ 75 mls/hr [id number] IV Last administered on 07/04/20at 09:54; Start 07/02/20 at 13:15 Atorvastatin Calcium (Lipitor) 40 mg HS PO Last administered on 07/03/20 20:27; Start 07/02/20 at 21:00 Carvedilol (Coreg) 6.25 mg BIDWMEALS PO Last administered on 07/04/20 09:46; Start 07/03/20 at 08:00 Clopidogrel Bisulfate (Plavix) 75 mg DAILY PO Last administered on 07/04/20 09:46; Start 07/03/20 at 09:00 Fentanyl (Duragesic 50mcg/ Hr Patch) 1 patch Q72H TD ; Start 07/02/20 at 18:00 Furosemide (Lasix) 40 mg PRN DAILY PRN PO leg swelling; Start 07/02/20 at 17:45 Montelukast Sodium (Singulair) 10 mg HS PO Last administered on 07/03/20 20:27; Start 07/02/20 at 21:00 Tizanidine HCl (Zanaflex) 4 mg TID PO Last administered on 07/04/20 09:46; Start 07/02/20 at 21:00 Amlodipine Besylate (Norvasc) 2.5 mg DAILY PO ; Start 07/03/20 at 09:00 Morphine Sulfate (Morphine Sulfate) 4 mg PRN Q2HR PRN IV SEVERE PAIN 7-10 Last administered on 07/03/20 05:58; Start 07/02/20 at 23:00; Stop 07/03/20 at 11:26; Status DC Morphine Sulfate (Morphine Ir) 15 mg PRN Q4HRS PRN PO SEVERE PAIN 7-10 Last administered on 07/04/20at 09:55; Start 07/02/20 at 23:00 Magnesium Hydroxide (Milk Of Magnesia) 2,400 mg PRN DAILY PRN PO CONSTIPATION 1ST CHOICE Last administered on 07/02/20 23:23; Start 07/02/20 at 23:00 Bisacodyl (Dulcolax Supp) 10 mg PRN DAILY PRN [place] CONSTIPATION 2ND CHOICE; Start 07/02/20 at 23:00 Ondansetron HCl (Zofran) 4 mg PRN Q6HRS PRN IVP NAUSEA/VOMITING Last administered on 07/03/20at 07:48; Start 07/03/20 at 07:30 Sodium Chloride 1,000 ml @ 500 mls/hr 1X ONCE IV Last administered on 07/03/20at 14:42; Start 07/03/20 at 11:15; Stop 07/03/20 at 13:14; Status DC Methylnaltrexone [place] (Relistor) 12 mg 1X ONCE SQ Last administered on 07/03/20at 16:46; Start 07/03/20 at 16:15; Stop 07/03/20 at 16:19; Status DC Dicyclomine HCl (Bentyl) 10 mg PRN QID PRN PO ABDOMINAL PAIN Last administered on 07/04/20at 00:29; Start 07/03/20 at 16:15; Stop 07/04/20 at 10:34; Status DC Dicyclomine HCl (Bentyl) 10 mg QIDACHS PO ; Start 07/04/20 at 10:45 Active Scripts Active [Diclofenac Sodium] 100 GM Gel..gram. 1 Matthew TP BID 7 Days Tizanidine Hcl 4 Mg Tablet 4 Mg PO TID 30 Days Reported Amlodipine Besylate 2.5 Mg Tablet 2.5 Mg PO DAILY Omeprazole 40 Mg Capsule.dr 1 Cap PO DAILY Carvedilol (Carvedilol) 6.25 Mg Tablet 6.25 Mg PO BIDWMEALS Ibuprofen 800 Mg Tablet 800 Mg PO PRN BID PRN Atorvastatin Calcium 40 Mg Tablet 40 Mg PO HS Clopidogrel (Clopidogrel Bisulfate) 75 Mg Tablet 75 Mg PO DAILY Montelukast Sodium Tablet (Montelukast Sodium) 10 Mg Tablet 10 Mg PO HS Celexa (Citalopram Hydrobromide) 40 Mg Tablet 40 Mg PO HS Lasix (Furosemide) 40 Mg Tablet 40 Mg PO DAILY PRN Metformin Hcl 500 Mg Tablet 500 Mg PO DAILY08 FENTANYL 50mcg/hr (Fentanyl) 1 Each Patch.td72 1 Patch TD Q72H Vitals/I & O Vital Sign - Last 24 Hours 07/03/20 07/03/20 07/03/20 07/03/20 14:42 15:00 15:42 19:32 Temp 98.0 98.2 98.0 98.2 Pulse 76 64 Resp 18 14 B/P (MAP) 150/84 (106) 112/46 (68) Pulse Ox 99 98 O2 Delivery Room Air Room Air Room Air Room Air 07/03/20 07/03/20 07/03/2007/03/20 19:50 20:28 21:28 22:56 Temp 97.8 97.8 Pulse 74 Resp 20 20 B/P (MAP) 122/62 (82) Pulse Ox 96 O2 Delivery Room Air Room Air Room Air Room Air 07/04/20 07/04/20 07/04/20 07/04/20 00:29 01:29 03:21 05:27 Temp 98.0 98.0 Pulse 78 Resp 20 B/P (MAP) 142/50 (80) Pulse Ox 96 96 O2 Delivery Room Air Room Air Room Air Room Air 07/04/20 07/04/20 07/04/20 07:00 08:30 09:46 Temp 98.2 98.2 Pulse 84 84 Resp 16 B/P (MAP) 139/73 (95) 139/73 Pulse Ox 95 O2 Delivery Room Air Room Air Intake and Output 07/03/20 07/03/20 07/04/20 15:00 23:00 07:00 Intake Total 580 ml Output Total 650 ml Balance -70 ml Justicifation of Admission Dx: Justifications for Admission: Justification of Admission Dx: Comment: (Intractable abdominal pain) JAN CLEMONS MD Jul 04, 2020 11:02
[2020-07-04] MEDS: DICYCLOMINE HCL 10 MG CAPSULE PO SCH ×3 (13:19→21:23)
[2020-07-04] MEDS: fentaNYL 50MCG/HR PATCH 1 PATCH PATCH.TD72 TD SCH (14:29)
[2020-07-04 15:00] VITALS: BP 124/46
--- NOTE | 2020-07-04 18:35 | NUR ---
Pt very upset and yelling at this RN in regards to diet and requests for coffee. Pt angry with the fact she has only had a clear and full liquid tray for breakfast and lunch. Pt also continues to have pain despite pain medication administration. This RN explained the process of advancing a diet and explained the reasoning in relation to abdominal pain. Pt verbalizes understanding, but states "don't waste your breath explaining, I already know." Pt tolerated full liquid diet for lunch, this RN told pt a regular tray could be ordered per her request. She agrees, regular tray ordered. Pt also very upset about not receiving coffee at requested time. This RN explained that a pot of coffee was being brewed and would be brought to her when complete. Pt states "I shouldn't have to wait that long for a pot of coffee to brew." Two cups of coffee brought to pt when coffee was brewed. Pt also expresses frustration and continues to yell at this RN about the care she received from the doctor. This RN offers to let pt talk to the nursing tank house supervisor about her concerns. Pt declines. This RN asked pt if she had any additional concerns that were not addressed and she declines. Addendum: 07/04/20 at 1849 by FABI CHAMBERS RN Add to previous: Pt also states "I'm having pain regardless and I can't go four days without eating food." Diet order changed to ADA diet.
[2020-07-04 19:00] VITALS: BP 102/45
[2020-07-04] MEDS ORDERED: DEXTROSE 50% 25 GM / 50ML DISP.SYRIN. IV PRN (21:00)
[2020-07-04] MEDS: MONTELUKAST SODIUM 10 MG TABLET. PO SCH (21:23)
[2020-07-04] MEDS: ATORVASTATIN CALCIUM 40 MG TABLET. PO SCH (21:23)
[2020-07-04 23:00] VITALS: BP 118/46
[2020-07-05] MEDS: MORPHINE IR 15 MG TABLET PO PRN ×4 (02:33→21:26)
[2020-07-05 03:46] VITALS: BP 135/52
[2020-07-05 06:31] LABS: BASO % 0 % (0-3); EOS # 0.1 x10^3/uL (0.0-0.7); EOS % 3 % (0-3); HEMOGLOBIN 9.8 g/dL (12.0-15.5); LYMPH # 0.8 x10^3/uL (1.0-4.8); LYMPH % 29 % (24-48); MEAN CORPUSCULAR HEMOGLOBIN 33 pg (25-35); MEAN CORPUSCULAR HGB CONC 34 g/dL (31-37); MEAN CORPUSCULAR VOLUME 97 fL (79-100); MONO # 0.2 x10^3/uL (0.0-1.1); MONO % 8 % (0-9); NEUT # 1.7 x10^3/uL (1.8-7.7); NEUT % 60 % (31-73); PLATELET COUNT 112 x10^3/uL (140-400); RED CELL DISTRIBUTION WIDTH 14.2 % (11.5-14.5); WHITE BLOOD COUNT 2.7 x10^3/uL (4.0-11.0)
[2020-07-05 06:40] LABS: ALBUMIN 2.9 g/dL (3.4-5.0); ALBUMIN/GLOBULIN RATIO 0.9 (1.0-1.7); CREATININE 0.6 mg/dL (0.6-1.0); GFR 98.5; POTASSIUM 4.4 mmol/L (3.5-5.1); TOTAL BILIRUBIN 0.5 mg/dL (0.2-1.0); TOTAL PROTEIN 6.2 g/dL (6.4-8.2)
[2020-07-05 07:00] VITALS: BP 151/62
[2020-07-05] MEDS: POLYETHYLENE GLYCOL 3350 17 GM PACKET. PO SCH ×2 (09:00→09:08)
[2020-07-05] MEDS: amLODIPine BESYLATE 5 MG TABLET PO SCH (09:00)
[2020-07-05] MEDS: MAGNESIUM HYDROXIDE 2,400 MG/30 ML ORAL.SUSP. PO PRN (09:07)
[2020-07-05] MEDS: tiZANidine 4 MG TABLET. PO SCH ×3 (09:08→21:26)
[2020-07-05] MEDS: CARVEDILOL 6.25 MG TABLET. PO SCH ×2 (09:08→17:23)
[2020-07-05] MEDS: PANTOPRAZOLE 40 MG TABLET.DR. PO SCH (09:08)
[2020-07-05] MEDS: DICYCLOMINE HCL 10 MG CAPSULE PO SCH ×4 (09:08→21:26)
[2020-07-05] MEDS: CLOPIDOGREL BISULFATE 75 MG TABLET PO SCH (09:08)
[2020-07-05] MEDS: CYANOCOBALAMIN (VITAMIN B-12) 1,000 MCG/ML VIAL IM SCH (09:08)
[2020-07-05] MEDS: INSULIN LISPRO 300 UNITS/3 ML VIAL. SQ SCH ×3 (09:12→17:28)
[2020-07-05] MEDS: IV NORMAL SALINE 1000ML BAG 1,000 ML IV SCH ×2 (09:13→21:15)
[2020-07-05] MEDS: DICLOFENAC SODIUM 1% TOPICAL GEL 100GM TUBE. TP SCH ×2 (09:16→21:28)
--- NOTE | 2020-07-05 10:08 | PDOC ---
[facility] PROGRESS NOTE Date of Service DOS: DATE: 07/05/20 TIME: 10:05 Chief Complaint Chief Complaint A/P: Abdominal pain. INTRACTABLE morbid obesity LLQ pain-with history of polyps and diveritcular disease. Opioid induced constipation leads differential r/o Malignancy, ischeimc coliits, recurrent colon polyps Moderate colonic stool content. Colonic diverticulosis without evidence for acute diverticulitis. Cholelithiasis without CT evidence for acute cholecystitis. Hypodense splenic lesion likely cyst. Nonobstructive right interpolar renal calculus. fatty liver. H/o metastatic breast cancer H/o CVA x2 H/o DVT in 1977 admitted consult GI IV fluids, home meds, DVT prophylaxis. Full code. P.r.n. pain meds. need additional bowel prep if colonoscopy is planned. 07/03 STILL NOTES BLOOD IN STOOL HGB STABLE d/w RN History of Present Illness History of Present Illness Ms Holguin is a 70yo female w/ PMHx breast cancer, DVT, CVAx2, chronic pain on chronic opioids who presented to the ER with abdominal pain. She has associated nausea. It has been occurring for a couple of months and progressed, feels is all in her LLQ. She tried taking some trpy-mvz-xchttco meds, but that did not help. She does have a previous history of diverticulitis. We did a CAT scan here in the ER, it is showing some diverticular disease without obvious inflammation. She also has moderate colonic stool and gallstones. Afebrile. Still with left lower quadrant pain, and has some right lower quadrant pain today. Feels like it is better than when she first came in, but she is strenuously requesting a colonoscopy. Notes that she had an abnormal colonoscopy 4 years ago with multiple polyps and was told to have a repeat colonoscopy. She has not been completely able to tolerate bowel prep and wanted to discontinue early due to multiple bowel movements. She does still have some brown in her stool currently. Vitals/I&O Vitals/I&O: Vital Signs Date Time Temp Pulse Resp B/P (MAP) Pulse Ox O2 Delivery O2 Flow Rate FiO2 07/05/20 09:08 Room Air 07/05/20 09:08 70 151/62 07/05/20 07:00 98.1 18 95 98.1 I & O 07/04/20 07/04/20 07/05/20 15:00 23:00 07:00 Intake Total 1240 ml 201 ml Balance 1240 ml 201 ml Physical Exam Physical Exam: HEENT: Normal cephalic atraumatic, external auditory canals are patent. EYES: Extraocular muscles are intact, pupils are equally round and reactive to light and accommodation. MUSCULOSKELETAL: Well developed, well nourished, good range of motion. ENDOCRINE: No thyromegaly was palpated. LYMPHATICS: No cervical chain or axillary nodes were noted. HEMATOPOIETIC: No bruising. NECK: Supple, no JVD, no thyromegaly was noted. LUNGS: Clear to auscultation in all lung masterson without rhonchi or wheezing. CHEST: She does have a left chest Port-A-Cath. HEART: RRR, S1, S2 present. Peripheral pulses intact, no obvious murmurs were noted. ABDOMEN: She has decreased bowel sounds with pain in the left lower quadrant. EXTREMITIES: Without any cyanosis, clubbing, or edema. Pedal pulses intact, Homans sign is negative. NEUROLOGIC: Normal speech, normal tone. A & O x3, moves all extremities, no obvious focal deficits. PSYCHIATRIC: Normal affect, normal mood. Stable. SKIN: No ulcerations or rashes, good skin turgor, no jaundice. VASCULAR: Good capillary refill, neurovascular bundle appears to be intact. General: Alert, Oriented X3, Cooperative, No acute distress Heart: Regular rate, No murmurs Lungs: Clear Abdomen: Soft, No tenderness Extremities: No cyanosis, No edema Skin: No significant lesion Labs Labs: Laboratory Tests Test 07/04/20 12:33 07/04/20 16:28 07/04/20 20:08 07/05/20 06:11 Glucose (Fingerstick) 164 mg/dL (70-99) 178 mg/dL (70-99) 192 mg/dL (70-99) White Blood Count 2.7 x10^3/uL (4.0-11.0) Red Blood Count 3.00 x10^6/uL (3.50-5.40) Hemoglobin 9.8 g/dL (12.0-15.5) Hematocrit 29.0 % (36.0-47.0) Mean Corpuscular Volume 97 fL (79-100) Mean Corpuscular Hemoglobin 33 pg (25-35) Mean Corpuscular Hemoglobin Concent 34 g/dL (31-37) Red Cell Distribution Width 14.2 % (11.5-14.5) Platelet Count 112 x10^3/uL (140-400) Neutrophils (%) (Auto) 60 % (31-73) Lymphocytes (%) (Auto) 29 % (24-48) Monocytes (%) (Auto) 8 % (0-9) Eosinophils (%) (Auto) 3 % (0-3) Basophils (%) (Auto) 0 % (0-3) Neutrophils # (Auto) 1.7 x10^3/uL (1.8-7.7) Lymphocytes # (Auto) 0.8 x10^3/uL (1.0-4.8) Monocytes # (Auto) 0.2 x10^3/uL (0.0-1.1) Eosinophils # (Auto) 0.1 x10^3/uL (0.0-0.7) Basophils # (Auto) 0.0 x10^3/uL (0.0-0.2) Sodium Level 141 mmol/L (136-145) Potassium Level 4.4 mmol/L (3.5-5.1) Chloride Level 107 mmol/L (98-107) Carbon Dioxide Level 28 mmol/L (21-32) Anion Gap 6 (6-14) Blood Urea Nitrogen 5 mg/dL (7-20) Creatinine 0.6 mg/dL (0.6-1.0) Estimated GFR (Cockcroft-Gault) 98.5 BUN/Creatinine Ratio 8 (6-20) Glucose Level 178 mg/dL (70-99) Calcium Level 8.0 mg/dL (8.5-10.1) Total Bilirubin 0.5 mg/dL (0.2-1.0) Aspartate Amino Transf (AST/SGOT) 19 U/L (15-37) Alanine Aminotransferase (ALT/SGPT) 27 U/L (14-59) Alkaline Phosphatase 49 U/L (46-116) Total Protein 6.2 g/dL (6.4-8.2) Albumin 2.9 g/dL (3.4-5.0) Albumin/Globulin Ratio 0.9 (1.0-1.7) Test 07/05/20 07:59 Glucose (Fingerstick) 187 mg/dL (70-99) Assessment and Plan Assessmemt and Plan Problems Medical Problems: (1) Diverticulosis Status: Acute (2) Gallstones Status: Acute (3) Intractable abdominal pain Status: Acute Comment Review of Relevant I have reviewed the following items shayne (where applicable) has been applied. Medications: Current Medications Medications (Trade) Dose Ordered Sig/Caleb Route PRN Reason Start Time Stop Time Status Last Admin Dose Admin Dicyclomine HCl (Bentyl) 10 mg QIDACHS PO 07/04/20 10:45 07/05/20 09:08 Insulin Human Lispro (HumaLOG) 0-5 UNITS TIDWMEALS SQ 07/05/20 08:00 07/05/20 09:12 Justicifation of Admission Dx: Justifications for Admission: Justification of Admission Dx: Comment: (Intractable abdominal pain) NEYMAR HULL MD Jul 05, 2020 10:07
--- NOTE | 2020-07-05 10:22 | NUR ---
SW following. Discussed with RN, pt from home alone, gets around fine, ada diet. RN advised no SW needs, anticipates discharge home today. SW will continue to follow, should any discharge needs arise.
[2020-07-05 11:00] VITALS: BP 129/51
[2020-07-05] MEDS ORDERED: DICY10CA3 PO (12:11)
--- NOTE | 2020-07-05 12:27 | PDOC ---
Date of Service: DATE: 07/05/20 TIME: 12:17 Subjective: Subjective: Not feeling better. LLQ and RLQ pain. Loose stools after Miralax. Tolerating diet. Denies bleeding. Objective: Objective: D/w nurse and Dr. Adam. Vital Signs: Vital Signs Date Time Temp Pulse Resp B/P (MAP) Pulse Ox O2 Delivery O2 Flow Rate FiO2 07/05/20 11:00 97.9 74 18 129/51 (77) 93 Room Air 97.9 Labs: Laboratory Tests Test 07/04/20 12:33 07/04/20 16:28 07/04/20 20:08 07/05/20 07:59 Glucose (Fingerstick) 164 mg/dL (70-99) 178 mg/dL (70-99) 192 mg/dL (70-99) 187 mg/dL (70-99) Test 07/05/20 11:18 Glucose (Fingerstick) 131 mg/dL (70-99) PE: GEN: NAD LUNGS: CTAB HEART: RRR ABD: soft, LLQ > RLQ discomfort NEURO/PSYCH: A & O 3 A/P: BLQ pain, ?hematochezia, constipation Anemia - restarted B12 last week H/o CAD, A Fib, CVA - on Plavix and ASA Chronic pain -- Reviewed w/ Dr. Jimenez - colonoscopy tomorrow after GoLytely prep and pending COVID testing. Agree w/ Bentyl. Will probably need to address long-term constipation treatment, particularly if to continue narcotics. Justicifation of Admission Dx: Justifications for Admission: Justification of Admission Dx: Comment: (Intractable abdominal pain) LYDIA EDGAR Jul 05, 2020 12:27
[2020-07-05] MEDS ORDERED: PEG 3350/NA SULF,BICARB,CL/KCL 4,000 ML SOLUTION. PO ONE (12:30)
[2020-07-05 15:00] VITALS: BP 139/62
[2020-07-05] MEDS: fentaNYL 100MCG/HR PATCH 1 PATCH PATCH TD SCH (15:18)
[2020-07-05] MEDS: ONDANSETRON PF 4 MG/2 ML VIAL. IVP PRN (17:23)
[2020-07-05 19:00] VITALS: BP 123/53
[2020-07-05] MEDS: ATORVASTATIN CALCIUM 40 MG TABLET. PO SCH (21:25)
[2020-07-05] MEDS: MONTELUKAST SODIUM 10 MG TABLET. PO SCH (21:26)
[2020-07-05 23:00] VITALS: BP 152/51
[2020-07-06] MEDS: MORPHINE IR 15 MG TABLET PO PRN ×5 (02:57→20:47)
[2020-07-06 03:00] VITALS: BP 125/89
[2020-07-06 07:00] VITALS: BP 172/76
[2020-07-06] MEDS ORDERED: IV RINGERS,LACTATED 1000ML 1,000 ML IV SCH (07:00)
[2020-07-06] MEDS: CARVEDILOL 6.25 MG TABLET. PO SCH ×2 (07:53→16:49)
[2020-07-06] MEDS: PANTOPRAZOLE 40 MG TABLET.DR. PO SCH (07:54)
[2020-07-06] MEDS: DICYCLOMINE HCL 10 MG CAPSULE PO SCH ×4 (07:54→20:46)
[2020-07-06] MEDS: CYANOCOBALAMIN (VITAMIN B-12) 1,000 MCG/ML VIAL IM SCH (07:54)
[2020-07-06] MEDS: INSULIN LISPRO 300 UNITS/3 ML VIAL. SQ SCH ×3 (07:54→16:55)
[2020-07-06] MEDS: POLYETHYLENE GLYCOL 3350 17 GM PACKET. PO SCH (07:58)
[2020-07-06] MEDS: CLOPIDOGREL BISULFATE 75 MG TABLET PO SCH (07:58)
[2020-07-06] MEDS: tiZANidine 4 MG TABLET. PO SCH ×3 (08:03→20:46)
--- NOTE | 2020-07-06 08:27 | PDOC ---
[employer] PROGRESS NOTE Date of Service DOS: DATE: 07/06/20 TIME: 08:27 Chief Complaint Chief Complaint A/P: Abdominal pain. INTRACTABLE morbid obesity LLQ pain-with history of polyps and diveritcular disease. Opioid induced constipation leads differential Acute blood loss anemia - likely from lower GI losses from diverticulosis vs polyps. Will cont to monitor r/o Malignancy, ischeimc coliits, recurrent colon polyps Moderate colonic stool content. Colonic diverticulosis without evidence for acute diverticulitis. Cholelithiasis without CT evidence for acute cholecystitis. Hypodense splenic lesion likely cyst. Nonobstructive right interpolar renal calculus. fatty liver. H/o metastatic breast cancer H/o CVA x2 H/o DVT in 1977 admitted consult GI IV fluids, home meds, DVT prophylaxis. Full code. P.r.n. pain meds. need additional bowel prep if colonoscopy is planned. 07/03 STILL NOTES BLOOD IN STOOL HGB STABLE d/w RN History of Present Illness History of Present Illness Ms Holguin is a 70yo female w/ PMHx breast cancer, DVT, CVAx2, chronic pain on chronic opioids who presented to the ER with abdominal pain. She has associated nausea. It has been occurring for a couple of months and progressed, feels is all in her LLQ. She tried taking some [id number] meds, but that did not help. She does have a previous history of diverticulitis. We did a CAT scan here in the ER, it is showing some diverticular disease without obvious inflammation. She also has moderate colonic stool and gallstones. Notes that she had an abnormal colonoscopy 4 years ago with multiple polyps and was told to have a repeat colonoscopy. She has not been completely able to tolerate bowel prep and wanted to discontinue early due to multiple bowel movements. She does still have some brown in her stool currently. 07/05: Still with pain in bilateral lower quadrants. Some blood mixed in with her stool. Afebrile. Still with left lower quadrant pain, and has some right lower quadrant pain today. Feels like it is better than when she first came in, but she is strenuously requesting a colonoscopy. She did take bowel preparation overnight and is having slightly brown liquid stools frequently. Plan for colonoscopy this afternoon. Vitals/I&O Vitals/I&O: Vital Signs Date Time Temp Pulse Resp B/P (MAP) Pulse Ox O2 Delivery O2 Flow Rate FiO2 07/06/20 07:53 Room Air 07/06/20 07:53 73 172/76 07/06/20 03:00 98.2 24 93 98.2 I & O 07/05/20 07/05/20 07/06/20 15:00 23:00 07:00 Intake Total 150 ml 350 ml Output Total 0 ml Balance 150 ml 350 ml Physical Exam Physical Exam: HEENT: Normal cephalic atraumatic, external auditory canals are patent. EYES: Extraocular muscles are intact, pupils are equally round and reactive to light and accommodation. MUSCULOSKELETAL: Well developed, well nourished, good range of motion. ENDOCRINE: No thyromegaly was palpated. LYMPHATICS: No cervical chain or axillary nodes were noted. HEMATOPOIETIC: No bruising. NECK: Supple, no JVD, no thyromegaly was noted. LUNGS: Clear to auscultation in all lung masterson without rhonchi or wheezing. CHEST: She does have a left chest Port-A-Cath. HEART: RRR, S1, S2 present. Peripheral pulses intact, no obvious murmurs were noted. ABDOMEN: She has decreased bowel sounds with pain in the left lower quadrant. EXTREMITIES: Without any cyanosis, clubbing, or edema. Pedal pulses intact, Homans sign is negative. NEUROLOGIC: Normal speech, normal tone. A & O x3, moves all extremities, no obvious focal deficits. PSYCHIATRIC: Normal affect, normal mood. Stable. SKIN: No ulcerations or rashes, good skin turgor, no jaundice. VASCULAR: Good capillary refill, neurovascular bundle appears to be intact. General: Alert, Oriented X3, Cooperative, No acute distress Heart: Regular rate, No murmurs Lungs: Clear Abdomen: Soft, No tenderness Extremities: No cyanosis, No edema Skin: No significant lesion Labs Labs: Laboratory Tests Test 07/05/20 11:18 07/05/20 16:10 07/05/20 17:20 07/05/20 20:06 Glucose (Fingerstick) 131 mg/dL (70-99) 181 mg/dL (70-99) 145 mg/dL (70-99) SARS-CoV-2 Antigen (Rapid) Negative (NEGATIVE) Test 07/06/20 07:53 Glucose (Fingerstick) 118 mg/dL (70-99) Assessment and Plan Assessmemt and Plan Problems Medical Problems: (1) Diverticulosis Status: Acute (2) Gallstones Status: Acute (3) Intractable abdominal pain Status: Acute Comment Review of Relevant I have reviewed the following items shayne (where applicable) has been applied. Medications: Current Medications Medications (Trade) Dose Ordered Sig/Caleb Route PRN Reason Start Time Stop Time Status Last Admin Dose Admin Sodium Cl/Sod Bicarb/Potass Cl/ PEG (Golytely) 4,000 ml 1X ONCE PO 07/05/20 12:30 07/05/20 12:33 DC 07/05/20 14:06 Fentanyl (Duragesic 100mcg/Hr Patch) 1 patch Q3DAYS TD 07/05/20 15:00 07/05/20 15:18 Justicifation of Admission Dx: Justifications for Admission: Justification of Admission Dx: Comment: (Intractable abdominal pain) NEYMAR HULL MD Jul 06, 2020 08:27
--- NOTE | 2020-07-06 08:35 | PDOC2 ---
CONSULT Date of Consult Date of Consult DATE: 07/05/20 TIME: 16:15 Reason for Consult Reason for Consult: Metastatic breast cancer. Pancytopenia Referring Physician Referring Physician: Dr Adam Identification/Chief Complaint Chief Complaint Abdominal pain Problems: (1) Metastatic cancer to spine (2) Breast CA (3) Pancytopenia Source Source: Chart review, Patient History of Present Illness Reason for Visit: Jasmyne Holguin is a 70 year old female with metastatic breast cancer who has been admitted after presenting with abdominal pain. She reports pain in the LLQ for a couple of weeks that had worsened recently. She notes associated diarrhea. She denies nausea and vomiting. She previously saw Dr Brock for metastatic breast cancer. She had her initial diagnosis in 2016 for which she received surgery, adjuvant chemotherapy and then experienced recurrence with T12 vertebral metastasis. She received XRT for this. She had been taking Faslodex and Ibrance (Ibrance required several dose interruptions). She last saw her 1 month ago and was asked to hold Ibrance. She is scheduled to see me for transfer of care later this week. Past Medical History Cardiovascular: AFIB, HTN, Hyperlipidemia Pulmonary: COPD, Pulmonary embolus, Pneumonia CENTRAL NERVOUS SYSTEM: CVA, Periperal neuropathy GI: GERD Heme/Onc: Cancer Hepatobiliary: Cholelithiasis Psych: Anxiety, Depression Musculoskeletal: Osteoarthritis, Other Rheumatologic: No pertinent hx Infectious disease: No pertinent hx Renal/: UTI, Other Endocrine: Diabetes Past Surgical History Past Surgical History: Tubal Ligation, Other Family History Family History: Hypertension Social History Quit ALCOHOL: rare Drugs: None Lives: Alone Current Problem List Problem List Problems Medical Problems: (1) Diverticulosis Status: Acute (2) Gallstones Status: Acute (3) Intractable abdominal pain Status: Acute Current Medications Current Medications Current Medications Famotidine (Pepcid Vial) 20 mg 1X ONCE IVP Last administered on 07/01/20at 17:09; Start 07/01/20 at 16:45; Stop 07/01/20 at 16:47; Status DC Ondansetron HCl (Zofran) 4 mg 1X ONCE IVP Last administered on 07/01/20at 17:06; Start 07/01/20 at 16:45; Stop 07/01/20 at 16:47; Status DC Morphine Sulfate (Morphine Sulfate) 5 mg 1X ONCE IV Last administered on 07/01/20at 17:11; Start 07/01/20 at 16:45; Stop 07/01/20 at 16:47; Status DC Sodium Chloride 1,000 ml @ 1,000 mls/hr 1X ONCE IV Last administered on 07/01/20at 16:45; Start 07/01/20 at 16:45; Stop 07/01/20 at 17:44; Status DC Iohexol (Omnipaque 300 Mg/ml) 75 ml 1X ONCE IV Last administered on 07/01/20at 17:42; Start 07/01/20 at 18:00; Stop 07/01/20 at 18:01; Status DC Info (CONTRAST GIVEN -- Rx MONITORING) 1 each PRN DAILY PRN MC SEE COMMENTS; Start 07/01/20 at 17:45; Stop 07/03/20 at 17:44; Status DC Hydromorphone HCl (Dilaudid) 1 mg 1X ONCE IV Last administered on 07/01/20at 19:38; Start 07/01/20 at 19:30; Stop 07/01/20 at 19:31; Status DC Ondansetron HCl (Zofran) 4 mg PRN Q8HRS PRN IV NAUSEA/VOMITING; Start 07/01/20 at 20:15; Stop 07/02/20 at 20:14; Status DC Morphine Sulfate (Morphine Sulfate) 4 mg PRN Q2HR PRN IV PAIN Last administered on 07/02/20at 19:04; Start 07/01/20 at 20:15; Stop 07/02/20 at 20:14; Status DC Hydromorphone HCl (Dilaudid) 1 mg 1X ONCE IV Last administered on 07/01/20at 20:26; Start 07/01/20 at 20:15; Stop 07/01/20 at 20:16; Status DC Dextrose (Dextrose 50%-Water Syringe) 12.5 gm PRN Q15MIN PRN IV SEE COMMENTS; Start 07/01/20 at 21:30 Fentanyl Citrate (Fentanyl 2ml Vial) 50 mcg PRN Q2HR PRN IVP SEVERE PAIN 7-10 Last administered on 07/02/20at 21:25; Start 07/02/20 at 02:45; Stop 07/02/20 at 23:03; Status DC Polyethylene Glycol (miraLAX PACKET) 17 gm DAILY PO Last administered on 07/02/20at 10:19; Start 07/02/20 at 09:00 Diclofenac Sodium (Voltaren) 1 matthew BID TP Last administered on 07/05/20 21:28; Start 07/02/20 at 09:00 Polyethylene Glycol (miraLAX Powder BULK BOTTLE) 238 gm 1X ONCE PO Last administered on 07/02/20 12:11; Start 07/02/20 at 12:00; Stop 07/02/20 at 12:01; Status DC Pantoprazole Sodium (Protonix) 40 mg DAILYAC PO Last administered on 07/06/20 07:54; Start 07/03/20 at 07:30 Cyanocobalamin (Vitamin B-12) 1,000 mcg DAILY IM Last administered on 07/06/20 07:54; Start 07/03/20 at 09:00 Sodium Chloride 1,000 ml @ 75 mls/hr [id number] IV Last administered on 07/05/20 09:13; Start 07/02/20 at 13:15 Atorvastatin Calcium (Lipitor) 40 mg HS PO Last administered on 07/05/20 21: 25; Start 07/02/20 at 21:00 Carvedilol (Coreg) 6.25 mg BIDWMEALS PO Last administered on 07/06/20 07:53; Start 07/03/20 at 08:00 Clopidogrel Bisulfate (Plavix) 75 mg DAILY PO Last administered on 07/05/20 09:08; Start 07/03/20 at 09:00 Fentanyl (Duragesic 50mcg/ Hr Patch) 1 patch Q72H TD Last administered on 07/04/20 14:29; Start 07/02/20 at 18:00; Stop 07/05/20 at 14:49; Status DC Furosemide (Lasix) 40 mg PRN DAILY PRN PO leg swelling; Start 07/02/20 at 17:45 Montelukast Sodium (Singulair) 10 mg HS PO Last administered on 07/05/20 21:26; Start 07/02/20 at 21:00 Tizanidine HCl (Zanaflex) 4 mg TID PO Last administered on 07/06/20 08:03; Start 07/02/20 at 21:00 Amlodipine Besylate (Norvasc) 2.5 mg DAILY PO ; Start 07/03/20 at 09:00 Morphine Sulfate (Morphine Sulfate) 4 mg PRN Q2HR PRN IV SEVERE PAIN 7-10 Last administered on 07/03/20at 05:58; Start 07/02/20 at 23:00; Stop 07/03/20 at 11:26; Status DC Morphine Sulfate (Morphine Ir) 15 mg PRN Q4HRS PRN PO SEVERE PAIN 7-10 Last administered on 07/06/20at 07:53; Start 07/02/20 at 23:00 Magnesium Hydroxide (Milk Of Magnesia) 2,400 mg PRN DAILY PRN PO CONSTIPATION 1ST CHOICE Last administered on 07/05/20at 09:07; Start 07/02/20 at 23:00 Bisacodyl (Dulcolax Supp) 10 mg PRN DAILY PRN [place] CONSTIPATION 2ND CHOICE; Start 07/02/20 at 23:00 Ondansetron HCl (Zofran) 4 mg PRN Q6HRS PRN IVP NAUSEA/VOMITING Last administered on 07/05/20at 17:23; Start 07/03/20 at 07:30 Sodium Chloride 1,000 ml @ 500 mls/hr 1X ONCE IV Last administered on 07/03/20at 14:42; Start 07/03/20 at 11:15; Stop 07/03/20 at 13:14; Status DC Methylnaltrexone [place] (Relistor) 12 mg 1X ONCE SQ Last administered on at 16:46; Start 07/03/20 at 16:15; Stop 07/03/20 at 16:19; Status DC Dicyclomine HCl (Bentyl) 10 mg PRN QID PRN PO ABDOMINAL PAIN Last administered on 07/04/20at 00:29; Start 07/03/20 at 16:15; Stop 07/04/20 at 10:34; Status DC Dicyclomine HCl (Bentyl) 10 mg QIDACHS PO Last administered on 07/06/20at 07:54; Start 07/04/20 at 10:45 Insulin Human Lispro (HumaLOG) 0-5 UNITS TIDWMEALS SQ Last administered on 07/05/20at 17:28; Start 07/05/20 at 08:00 Dextrose (Dextrose 50%-Water Syringe) 12.5 gm PRN Q15MIN PRN IV SEE COMMENTS; Start 07/04/20 at 21:00 Sodium Cl/Sod Bicarb/Potass Cl/ PEG (Golytely) 4,000 ml 1X ONCE PO Last admin istered on 07/05/20at 14:06; Start 07/05/20 at 12:30; Stop 07/05/20 at 12:33; Status DC Ringer's Solution 1,000 ml @ 50 mls/hr Q20H IV ; Start 07/06/20 at 07:00; Stop 07/06/20 at 18:59 Fentanyl (Duragesic 100mcg/Hr Patch) 1 patch Q3DAYS TD Last administered on 07/05/20at 15:18; Start 07/05/20 at 15:00 Active Scripts Active Dicyclomine Hcl 10 Mg Capsule 10 Mg PO QIDACHS 30 Days [Diclofenac Sodium] 100 GM Gel..gram. 1 Matthew TP BID 7 Days Tizanidine Hcl 4 Mg Tablet 4 Mg PO TID 30 Days Reported Amlodipine Besylate 2.5 Mg Tablet 2.5 Mg PO DAILY Omeprazole 40 Mg Capsule.dr 1 Cap PO DAILY Carvedilol (Carvedilol) 6.25 Mg Tablet 6.25 Mg PO BIDWMEALS Atorvastatin Calcium 40 Mg Tablet 40 Mg PO HS Clopidogrel (Clopidogrel Bisulfate) 75 Mg Tablet 75 Mg PO DAILY Montelukast Sodium Tablet (Montelukast Sodium) 10 Mg Tablet 10 Mg PO HS Celexa (Citalopram Hydrobromide) 40 Mg Tablet 40 Mg PO HS Lasix (Furosemide) 40 Mg Tablet 40 Mg PO DAILY PRN Metformin Hcl 500 Mg Tablet 500 Mg PO DAILY08 FENTANYL 50mcg/hr (Fentanyl) 1 Each Patch.td72 1 Patch TD Q72H Allergies Allergies: Coded Allergies: No Known Drug Allergies (Unverified , 07/04/19) ROS General: No: Chills, Night Sweats PSYCHOLOGICAL ROS: No: Anxiety, Behavioral Disorder Eyes: No Blurry vision, No Decreased vision HEENT: No: Heacaches, Visual Changes ALLERGY AND IMMUNOLOGY: No: Hives, Insect Bite Sensitivity, Nasal Congestion Hematological and Lymphatic: No: Bleeding Problems, Brusing ENDOCRINE: No: Malaise/lethargy, Skin Changes Breast: No Nipple discharge Respiratory: No: Cough, Hemoptysis, Shortness of breath Cardiovascular: No Chest Pain, No Palpitations Gastrointestinal: No Nausea, No Vomiting, No Constipation, No Hematochezia Genitourinary: No Dysuria Musculoskeletal: No Gait Disturbance, No Joint Pain Neurological: No Dizziness, No Gait Disturbance Skin: No Dry Skin Physical Exam General: Alert, Oriented X3 HEENT: Atraumatic, PERRLA Lungs: Clear to auscultation Heart: Regular rate Abdomen: Normal bowel sounds, Soft, No tenderness Extremities: No clubbing Skin: No rashes Psych/Mental Status: Mental status NL MUSCULOSKELETAL: No joint tenderness, No swelling Vitals VITALS Vital Signs Date Time Temp Pulse Resp B/P (MAP) Pulse Ox O2 Delivery O2 Flow Rate FiO2 07/06/20 07:53 Room Air 07/06/20 07:53 73 172/76 07/06/20 03:00 98.2 24 93 98.2 Labs Labs Laboratory Tests Test 07/04/20 12:33 07/04/20 16:28 07/04/20 20:08 07/05/20 06:11 Glucose (Fingerstick) 164 mg/dL (70-99) 178 mg/dL (70-99) 192 mg/dL (70-99) White Blood Count 2.7 x10^3/uL (4.0-11.0) Red Blood Count 3.00 x10^6/uL (3.50-5.70) Hemoglobin 9.8 g/dL (12.0-15.5) Hematocrit 29.0 % (36.0-47.0) Mean Corpuscular Volume 97 fL (79-100) Mean Corpuscular Hemoglobin 33 pg (25-35) Mean Corpuscular Hemoglobin Concent 34 g/dL (31-37) Red Cell Distribution Width 14.2 % (11.5-14.5) Platelet Count 112 x10^3/uL (140-400) Neutrophils (%) (Auto) 60 % (31-73) Lymphocytes (%) (Auto) 29 % (24-48) Monocytes (%) (Auto) 8 % (0-9) Eosinophils (%) (Auto) 3 % (0-3) Basophils (%) (Auto) 0 % (0-3) Neutrophils # (Auto) 1.7 x10^3/uL (1.8-7.7) Lymphocytes # (Auto) 0.8 x10^3/uL (1.0-4.8) Monocytes # (Auto) 0.2 x10^3/uL (0.0-1.1) Eosinophils # (Auto) 0.1 x10^3/uL (0.0-0.7) Basophils # (Auto) 0.0 x10^3/uL (0.0-0.2) Absolute Reticulocyte Count 0.064 x10^6/uL (0.020-0.120) Percent Reticulocyte Count 2.2 % (0.5-2.3) Immature Reticulocyte Fraction 0.53 (0.20-0.60) Sodium Level 141 mmol/L (136-145) Potassium Level 4.4 mmol/L (3.5-5.1) Chloride Level 107 mmol/L (98-107) Carbon Dioxide Level 28 mmol/L (21-32) Anion Gap 6 (6-14) Blood Urea Nitrogen 5 mg/dL (7-20) Creatinine 0.6 mg/dL (0.6-1.0) Estimated GFR (Cockcroft-Gault) 98.5 BUN/Creatinine Ratio 8 (6-20) Glucose Level 178 mg/dL (70-99) Calcium Level 8.0 mg/dL (8.5-10.1) Total Bilirubin 0.5 mg/dL (0.2-1.0) Aspartate Amino Transf (AST/SGOT) 19 U/L (15-37) Alanine Aminotransferase (ALT/SGPT) 27 U/L (14-59) Alkaline Phosphatase 49 U/L (46-116) Lactate Dehydrogenase 161 U/L (81-234) Total Protein 6.2 g/dL (6.4-8.2) Albumin 2.9 g/dL (3.4-5.0) Albumin/Globulin Ratio 0.9 (1.0-1.7) Vitamin B12 Level > 2000 pg/mL (247-911) Test 07/05/20 07:59 07/05/20 11:18 07/05/20 16:10 07/05/20 17:20 Glucose (Fingerstick) 187 mg/dL (70-99) 131 mg/dL (70-99) 181 mg/dL (70-99) SARS-CoV-2 Antigen (Rapid) Negative (NEGATIVE) Test 07/05/20 20:06 07/06/20 07:53 Glucose (Fingerstick) 145 mg/dL (70-99) 118 mg/dL (70-99) Laboratory Tests Test 07/05/20 11:18 07/05/20 16:10 07/05/20 17:20 07/05/20 20:06 Glucose (Fingerstick) 131 mg/dL (70-99) 181 mg/dL (70-99) 145 mg/dL (70-99) SARS-CoV-2 Antigen (Rapid) Negative (NEGATIVE) Test 07/06/20 07:53 Glucose (Fingerstick) 118 mg/dL (70-99) Images Images CT Abdomen and Pelvis: IMPRESSION: 1. Moderate colonic stool content. Colonic diverticulosis without evidence for acute diverticulitis. 2. Cholelithiasis without CT evidence for acute cholecystitis. 3. Hypodense splenic lesion likely cyst. 4. Nonobstructive right interpolar renal calculus. 5. Hepatic hypoattenuation likely fatty liver. Assessment/Plan Assessment/Plan Assessment: Metastatic breast cancer Pancytopenia Abdominal pain CAD Recommendations: -Check B12, copper level for evaluation of pancytopenia. May be acute from her current illness. I will recheck this during her office visit with me -She is not on any systemic therapy for breast cancer at this time -Follow-up in my office for discussion of breast cancer care. Currently scheduled for 07/08 but can reschedule if needed -Continue care per Dr Adam and GI. Colonoscopy is being planned Thank you for the consukt Douglas Espinosa MD Hem-Onc Ph: [phone] ROSA ESPINOSA MD Jul 06, 2020 08:35
[2020-07-06] MEDS ORDERED: IV RINGERS,LACTATED 1000ML 1,000 ML IV ONE (08:45)
[2020-07-06] MEDS: DICLOFENAC SODIUM 1% TOPICAL GEL 100GM TUBE. TP SCH ×2 (09:15→20:48)
--- NOTE | 2020-07-06 10:09 | NUR ---
SW following. Discussed with RN, pt NPO for colonoscopy. Possible discharge if colonoscopy clear. SW will continue to follow.
[2020-07-06] MEDS: IV NORMAL SALINE 1000ML BAG 1,000 ML IV SCH ×2 (10:35→23:03)
[2020-07-06 11:00] VITALS: BP 110/42
[2020-07-06] MEDS: amLODIPine BESYLATE 5 MG TABLET PO SCH (12:17)
--- NOTE | 2020-07-06 14:13 | PDOC ---
Date of Service: DATE: 07/06/20 TIME: 14:09 Subjective: Subjective: Prep made pain worse. Very hungry. Reports vague h/o "colitis but I only had two polyps with it." Objective: Objective: D/w GI lab at this time - anesthesia unavailable, pt preferred to postpone procedure til tomorrow morning. Vital Signs: Vital Signs Date Time Temp Pulse Resp B/P (MAP) Pulse Ox O2 Delivery O2 Flow Rate FiO2 07/06/20 12:24 Room Air 07/06/20 12:17 62 110/42 07/06/20 11:00 98.0 18 100 98.0 Labs: Laboratory Tests Test 07/05/20 16:10 07/05/20 17:20 07/05/20 20:06 07/06/20 07:53 SARS-CoV-2 Antigen (Rapid) Negative Glucose (Fingerstick) 181 mg/dL 145 mg/dL 118 mg/dL Test 07/06/20 11:48 Glucose (Fingerstick) 132 mg/dL PE: GEN: NAD, sitting on edge of bed LUNGS: diminished HEART: RRR ABD: BLQ discomfort NEURO/PSYCH: A & O 3 A/P: BLQ pain - constipation and hematochezia reported prior to admission Anemia - restarted B12 last week H/o CAD, A Fib, CVA, chronic pain - on Plavix, ASA, narcotics COVID negative -- Clears okay for tonight, NPO at midnight for colonoscopy tomorrow a.m. Recheck labs in a.m. Justicifation of Admission Dx: Justifications for Admission: Justification of Admission Dx: Comment: (Intractable abdominal pain) LYDIA EDGAR Jul 06, 2020 14:13
[2020-07-06 15:00] VITALS: BP 164/62
[2020-07-06 16:11] LABS: KAPPA FREE 30.6 mg/L (3.3-19.4); KAPPA LAMBDA RATIO 1.55 (0.26-1.65); LAMBDA FREE 19.7 mg/L (5.7-26.3)
[2020-07-06 19:00] VITALS: BP 113/46
[2020-07-06] MEDS: MONTELUKAST SODIUM 10 MG TABLET. PO SCH (20:46)
[2020-07-06] MEDS: ATORVASTATIN CALCIUM 40 MG TABLET. PO SCH (20:46)
[2020-07-06 23:00] VITALS: BP 138/78
[2020-07-07] VITALS (10 sets, daily range): BP systolic 104–163; BP diastolic 44–80
[2020-07-07] MEDS: MORPHINE IR 15 MG TABLET PO PRN ×4 (05:47→22:08)
[2020-07-07] MEDS ORDERED: IV RINGERS,LACTATED 1000ML 1,000 ML IV ONE (07:30)
[2020-07-07] MEDS: INSULIN LISPRO 300 UNITS/3 ML VIAL. SQ SCH ×3 (08:00→17:00)
[2020-07-07] MEDS ORDERED: LIDOCAINE 2% PF 5 ML VIAL. ONE (08:26)
[2020-07-07] MEDS ORDERED: PROPOFOL 10 MG/ML (20ML) VIAL. IV ONE (08:26)
[2020-07-07 08:37] LABS: HEMATOCRIT 31.9 % (36.0-47.0); HEMOGLOBIN 10.7 g/dL (12.0-15.5); RED BLOOD COUNT 3.31 x10^6/uL (3.50-5.40); RED CELL DISTRIBUTION WIDTH 14.9 % (11.5-14.5); WHITE BLOOD COUNT 4.1 x10^3/uL (4.0-11.0)
[2020-07-07] MEDS: POLYETHYLENE GLYCOL 3350 17 GM PACKET. PO SCH (09:00)
--- NOTE | 2020-07-07 09:05 | PDOC4 ---
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
[2020-07-07 09:13] LABS: CALCIUM 8.6 mg/dL (8.5-10.1); CREATININE 0.7 mg/dL (0.6-1.0); GFR 82.5; POTASSIUM 3.7 mmol/L (3.5-5.1)
--- NOTE | 2020-07-07 09:38 | PDOC ---
[employer] PROGRESS NOTE Date of Service DOS: DATE: 07/07/20 TIME: 09:33 Chief Complaint Chief Complaint A/P: Abdominal pain. INTRACTABLE morbid obesity LLQ pain-with history of polyps and diveritcular disease. Opioid induced constipation leads differential Acute blood loss anemia - likely from lower GI losses from diverticulosis vs polyps. Will cont to monitor r/o Malignancy, ischeimc coliits, recurrent colon polyps Moderate colonic stool content. Colonic diverticulosis without evidence for acute diverticulitis. Cholelithiasis without CT evidence for acute cholecystitis. Hypodense splenic lesion likely cyst. Nonobstructive right interpolar renal calculus. fatty liver. H/o metastatic breast cancer H/o CVA x2 H/o DVT in 1977 admitted consult GI IV fluids, home meds, DVT prophylaxis. Full code. P.r.n. pain meds. need additional bowel prep if colonoscopy is planned. 07/03 STILL NOTES BLOOD IN STOOL HGB STABLE d/w RN History of Present Illness History of Present Illness Ms Holguin is a 70yo female w/ PMHx breast cancer, DVT, CVAx2, chronic pain on chronic opioids who presented to the ER with abdominal pain. She has associated nausea. It has been occurring for a couple of months and progressed, feels is all in her LLQ. She tried taking some czef-xcy-zqsyiah meds, but that did not help. She does have a previous history of diverticulitis. We did a CAT scan here in the ER, it is showing some diverticular disease without obvious inflammation. She also has moderate colonic stool and gallstones. Notes that she had an abnormal colonoscopy 4 years ago with multiple polyps and was told to have a repeat colonoscopy. She has not been completely able to tolerate bowel prep and wanted to discontinue early due to multiple bowel movements. She does still have some brown in her stool currently. 07/05: Still with pain in bilateral lower quadrants. Some blood mixed in with her stool. 07/06: Afebrile. Still with left lower quadrant pain, and has some right lower quadrant pain today. Feels like it is better than when she first came in, but she is strenuously requesting a colonoscopy. She did take bowel preparation overnight and is having slightly brown liquid stools frequently. Plan for colonoscopy this afternoon. Still with abdominal pain. Delayed procedure till today due to lack of anesthesia on 07/06/2020 Vitals/I&O Vitals/I&O: Vital Signs Date Time Temp Pulse Resp B/P (MAP) Pulse Ox O2 Delivery O2 Flow Rate FiO2 07/07/20 09:18 74 16 154/67 95 Room Air 07/07/20 09:03 97.2 2 97.2 I & O 07/06/20 07/06/20 07/07/20 15:00 23:00 07:00 Intake Total 1000 ml 0 ml Balance 1000 ml 0 ml Physical Exam Physical Exam: HEENT: Normal cephalic atraumatic, external auditory canals are patent. EYES: Extraocular muscles are intact, pupils are equally round and reactive to light and accommodation. MUSCULOSKELETAL: Well developed, well nourished, good range of motion. ENDOCRINE: No thyromegaly was palpated. LYMPHATICS: No cervical chain or axillary nodes were noted. HEMATOPOIETIC: No bruising. NECK: Supple, no JVD, no thyromegaly was noted. LUNGS: Clear to auscultation in all lung masterson without rhonchi or wheezing. CHEST: She does have a left chest Port-A-Cath. HEART: RRR, S1, S2 present. Peripheral pulses intact, no obvious murmurs were noted. ABDOMEN: She has decreased bowel sounds with pain in the left lower quadrant. EXTREMITIES: Without any cyanosis, clubbing, or edema. Pedal pulses intact, Homans sign is negative. NEUROLOGIC: Normal speech, normal tone. A & O x3, moves all extremities, no obvious focal deficits. PSYCHIATRIC: Normal affect, normal mood. Stable. SKIN: No ulcerations or rashes, good skin turgor, no jaundice. VASCULAR: Good capillary refill, neurovascular bundle appears to be intact. General: Alert, Oriented X3 Heart: Regular rate Lungs: Clear Abdomen: Normal bowel sounds, Soft, No tenderness Extremities: No clubbing Skin: No rashes Labs Labs: Laboratory Tests Test 07/06/20 11:48 07/06/20 16:45 07/06/20 20:14 07/07/20 07:35 Glucose (Fingerstick) 132 mg/dL (70-99) 190 mg/dL (70-99) 147 mg/dL (70-99) White Blood Count 4.1 x10^3/uL (4.0-11.0) Red Blood Count 3.31 x10^6/uL (3.50-5.40) Hemoglobin 10.7 g/dL (12.0-15.5) Hematocrit 31.9 % (36.0-47.0) Mean Corpuscular Volume 96 fL (79-100) Mean Corpuscular Hemoglobin 32 pg (25-35) Mean Corpuscular Hemoglobin Concent 34 g/dL (31-37) Red Cell Distribution Width 14.9 % (11.5-14.5) Platelet Count 140 x10^3/uL (140-400) Sodium Level 142 mmol/L (136-145) Potassium Level 3.7 mmol/L (3.5-5.1) Chloride Level 104 mmol/L (98-107) Carbon Dioxide Level 31 mmol/L (21-32) Anion Gap 7 (6-14) Blood Urea Nitrogen 4 mg/dL (7-20) Creatinine 0.7 mg/dL (0.6-1.0) Estimated GFR (Cockcroft-Gault) 82.5 Glucose Level 107 mg/dL (70-99) Calcium Level 8.6 mg/dL (8.5-10.1) Test 07/07/20 07:37 Glucose (Fingerstick) 102 mg/dL (70-99) Assessment and Plan Assessmemt and Plan Problems Medical Problems: (1) Diverticulosis Status: Acute (2) Gallstones Status: Acute (3) Intractable abdominal pain Status: Acute Comment Review of Relevant I have reviewed the following items shayne (where applicable) has been applied. Medications: Current Medications Medications (Trade) Dose Ordered Sig/Caleb Route PRN Reason Start Time Stop Time Status Last Admin Dose Admin Ringer's Solution 1,000 ml @ 75 mls/hr 1X ONCE IV 07/07/20 07:30 07/07/20 20:49 07/07/20 08:07 Justicifation of Admission Dx: Justifications for Admission: Justification of Admission Dx: Comment: (Intractable abdominal pain) NEYMAR HULL MD Jul 07, 2020 09:38
[2020-07-07] MEDS: DICYCLOMINE HCL 10 MG CAPSULE PO SCH ×4 (10:05→22:08)
[2020-07-07] MEDS: CARVEDILOL 6.25 MG TABLET. PO SCH ×2 (10:05→18:13)
[2020-07-07] MEDS: CLOPIDOGREL BISULFATE 75 MG TABLET PO SCH (10:05)
[2020-07-07] MEDS: tiZANidine 4 MG TABLET. PO SCH ×3 (10:05→22:08)
[2020-07-07] MEDS: PANTOPRAZOLE 40 MG TABLET.DR. PO SCH (10:05)
[2020-07-07] MEDS: CYANOCOBALAMIN (VITAMIN B-12) 1,000 MCG/ML VIAL IM SCH (10:06)
[2020-07-07] MEDS: DICLOFENAC SODIUM 1% TOPICAL GEL 100GM TUBE. TP SCH ×2 (10:11→22:06)
--- NOTE | 2020-07-07 11:04 | NUR ---
SW following. Discussed with RN, pt having colonoscopy today, plans for discharge after colonoscopy. No SW needs. SW will continue to follow should any discharge needs arise.
[2020-07-07] MEDS: amLODIPine BESYLATE 5 MG TABLET PO SCH (12:49)
[2020-07-07] MEDS: IV NORMAL SALINE 1000ML BAG 1,000 ML IV SCH (13:15)
[2020-07-07 16:11] LABS: ALBUM 3.5 g/dL (2.9-4.4); ALPHA 1 0.3 g/dL (0.0-0.4); ALPHA 2 0.7 g/dL (0.4-1.0); GAMMA 1.3 g/dL (0.4-1.8); PROTEIN TOTAL 6.7 g/dL (6.0-8.5); SPEP AG RATIO 1.1 (0.7-1.7)
[2020-07-07 17:10] LABS: METHYLMALONIC ACID 114 nmol/L (0-378)
[2020-07-07] MEDS: ATORVASTATIN CALCIUM 40 MG TABLET. PO SCH (22:07)
[2020-07-07] MEDS: MONTELUKAST SODIUM 10 MG TABLET. PO SCH (22:07)
[2020-07-08] MEDS: IV NORMAL SALINE 1000ML BAG 1,000 ML IV SCH ×2 (02:35→15:55)
[2020-07-08 03:00] VITALS: BP 134/62
[2020-07-08] MEDS: MORPHINE IR 15 MG TABLET PO PRN ×4 (03:12→17:22)
[2020-07-08 07:15] VITALS: BP 167/56
[2020-07-08] MEDS: fentaNYL 100MCG/HR PATCH 1 PATCH PATCH TD SCH (08:09)
[2020-07-08] MEDS: PANTOPRAZOLE 40 MG TABLET.DR. PO SCH (08:11)
[2020-07-08] MEDS: DICYCLOMINE HCL 10 MG CAPSULE PO SCH ×3 (08:12→17:21)
[2020-07-08] MEDS: CLOPIDOGREL BISULFATE 75 MG TABLET PO SCH (08:12)
[2020-07-08] MEDS: tiZANidine 4 MG TABLET. PO SCH ×2 (08:12→15:08)
[2020-07-08] MEDS: CARVEDILOL 6.25 MG TABLET. PO SCH ×2 (08:13→17:22)
[2020-07-08] MEDS: POLYETHYLENE GLYCOL 3350 17 GM PACKET. PO SCH (08:15)
[2020-07-08] MEDS: DICLOFENAC SODIUM 1% TOPICAL GEL 100GM TUBE. TP SCH (08:15)
[2020-07-08] MEDS: CYANOCOBALAMIN (VITAMIN B-12) 1,000 MCG/ML VIAL IM SCH (08:16)
[2020-07-08] MEDS: amLODIPine BESYLATE 5 MG TABLET PO SCH (08:19)
[2020-07-08] MEDS: INSULIN LISPRO 300 UNITS/3 ML VIAL. SQ SCH ×3 (08:50→17:45)
--- NOTE | 2020-07-08 10:21 | NUR ---
MIGUEL ÁNGEL following. Discussed with RN. Dr. Adam plans to discharge patient home today. Colonoscopy yesterday 07/07/2020. Addendum: 07/08/20 at 1358 by ANNABELLE DEL ROSARIO Home health ordered for discharge. Josephine Vernon RN met with pt to discuss home health, SW awaiting acceptance decision. Addendum: 07/08/20 at 1452 by ANNABELLE DEL ROSARIO Pt declining home health as she is not home bound. Would like a referral to a pain clinic for pain management. Per Josephine Vernon RN, pt has been having to get pain medication from PCP in [place] as she has been unable to obtain through a [place] PCP. RN notified.
[2020-07-08 11:15] VITALS: BP 124/51
--- NOTE | 2020-07-08 11:23 | PDOC ---
Date of Service: DATE: 07/08/20 TIME: 11:19 Subjective: Subjective: Still hurts in LLQ - can be stabbing like a knife - fairly constant and worse w/ bending. Asks if she could have an ovary problem or an ulcer. Bentyl doesn't help. Objective: Vital Signs: Vital Signs Date Time Temp Pulse Resp B/P (MAP) Pulse Ox O2 Delivery O2 Flow Rate FiO2 07/08/20 08:19 72 134/62 07/08/20 08:11 20 93 Room Air 07/08/20 07:15 97.8 97.8 07/07/20 09:03 2 Labs: Laboratory Tests Test 07/07/20 11:22 07/07/20 16:49 07/07/20 21:16 07/08/20 07:53 Glucose (Fingerstick) 173 mg/dL 150 mg/dL 277 mg/dL 185 mg/dL Imaging: Colonoscopy internal hemorrhoids pandiverticulosis PE: GEN: NAD LUNGS: CTAB HEART: RRR ABD: soft, LLQ discomfort NEURO/PSYCH: A & O 3 A/P: LLQ pain - colonoscopy unrevealing as above except for diverticulosis and hemorrhoids Anemia - on B12 Suspect OIC H/o CAD, A Fib, CVA, chronic pain - on Plavix, ASA, narcotics -- Will review any additional recommendations re: pain w/ Dr. Jimenez. Justicifation of Admission Dx: Justifications for Admission: Justification of Admission Dx: Comment: (Intractable abdominal pain) LYDIA EDGAR Jul 08, 2020 11:23
[2020-07-08] MEDS ORDERED: MORP15TA PO (11:33)
--- NOTE | 2020-07-08 11:35 | SNU/HH DC ---
DISCHARGE WITH HOME HEALTH DISCHARGE INFORMATION: Discharge Date: Jul 08, 2020 Final Diagnosis: Problems Medical Problems: (1) Diverticulosis Status: Acute (2) Gallstones Status: Acute (3) Intractable abdominal pain Status: Acute Condition on Discharge: Stable CODE STATUS: Code Status: Full HOME HEALTH: Face to Face: I certify this patient is under my care and that I, or a nurse practitioner or physician's housekeeping assistant working with me, had a face to face encounter that meets the physician face to face encounter requirements with this patient on 07/08/20. Medical Complications: Falls, HTN RN For Eval/Treatment: Yes Physical Therapy For: Evalulation/Treatment Occupational Therapy For: Evaluation/Treatment Pt Meets Homebound Status: Extreme weakness w/ amb., Limited distance walking POST DISCHARGE ORDERS: Activity Instructions for Disc: Activity as tolerated Weight Bearing Status after Di: No restrictions DIET AFTER DISCHARGE: Regular CHECKS AFTER DISCHARGE: Checks after discharge: Check blood press - daily, Check blood sugar, ac/hs TREATMENT/EQUIPMENT ORDERS: Adaptive Equipment Issued: None CERTIFICATION STATEMENT: Certification Statement: Certification Statement: Based on the above finding, I certify that this patient is confined to the home and needs intermittent halfway care, physical therapy and/or speech therapy, or continues to need occupational therapy.~ This patient is under my care, and I have initiated the establishment of the plan of care.~ This patient will be followed by myself or a community physician who will periodically review the plan of care. Home Meds Active Scripts Morphine Sulfate (MORPHINE SULFATE) 15 Mg Tablet, 15 MG PO PRN Q6HRS PRN for SEVERE PAIN 7-10 for 6 Days, #24 TAB Prov:NEYMAR HULL MD 07/08/20 Dicyclomine Hcl (DICYCLOMINE HCL) 10 Mg Capsule, 10 MG PO QIDACHS for Abdominal pain for 30 Days, #120 CAP 2 Refills Prov:NEYMAR HULL MD 07/05/20 [Diclofenac Sodium 1% Topical] 100 GM GEL..GRAM. No Conflict Check, 1 SANDER TP BID for 7 Days, #14 EACH Prov:KIM TY MD 03/26/20 Tizanidine Hcl (TIZANIDINE HCL) 4 Mg Tablet, 4 MG PO TID for muscle spasm for 30 Days, #90 TAB Prov:KIM TY MD 03/26/20 Reported Medications Amlodipine Besylate (AMLODIPINE BESYLATE) 2.5 Mg Tablet, 2.5 MG PO DAILY for hypertension, TAB 07/02/20 Omeprazole (OMEPRAZOLE) 40 Mg Capsule.dr, 1 CAP PO DAILY for GERD, #30 CAP 3 Refills 07/02/20 Carvedilol (CARVEDILOL ) 6.25 Mg Tablet, 6.25 MG PO BIDWMEALS for CARDIAC, TAB 07/02/20 Atorvastatin Calcium (ATORVASTATIN CALCIUM) 40 Mg Tablet, 40 MG PO HS for FOR CHOLESTEROL 07/04/19 Clopidogrel Bisulfate (CLOPIDOGREL) 75 Mg Tablet, 75 MG PO DAILY for TO PREVENT BLOOD CLOTS 07/04/19 Montelukast Sodium (MONTELUKAST SODIUM TABLET ) 10 Mg Tablet, 10 MG PO HS for FOR ASTHMA 07/04/19 Citalopram Hydrobromide (CELEXA) 40 Mg Tablet, 40 MG PO HS for Depression 07/04/19 Furosemide (LASIX) 40 Mg Tablet, 40 MG PO DAILY PRN for leg swelling 07/04/19 Metformin Hcl (METFORMIN HCL) 500 Mg Tablet, 500 MG PO DAILY08 for ANTI-DIABETIC 07/04/19 Fentanyl (FENTANYL 50mcg/hr) 1 Each Patch.td72, 1 PATCH TD Q72H for Bone mets 07/04/19 Discontinued Reported Medications Ibuprofen (IBUPROFEN) 800 Mg Tablet, 800 MG PO PRN BID PRN for INFLAMMATION, TAB 07/02/20 NEYMAR HULL MD Jul 08, 2020 11:35
--- NOTE | 2020-07-08 11:40 | PDOC ---
[employer] PROGRESS NOTE Date of Service DOS: DATE: 07/08/20 TIME: 11:35 Chief Complaint Chief Complaint A/P: Abdominal pain. INTRACTABLE morbid obesity LLQ pain-with history of polyps and diveritcular disease. Opioid induced constipation leads differential Acute blood loss anemia - likely from lower GI losses from diverticulosis vs polyps. Will cont to monitor r/o Malignancy, ischeimc coliits, recurrent colon polyps Moderate colonic stool content. Colonic diverticulosis without evidence for acute diverticulitis. Cholelithiasis without CT evidence for acute cholecystitis. Hypodense splenic lesion likely cyst. Nonobstructive right interpolar renal calculus. fatty liver. H/o metastatic breast cancer H/o CVA x2 H/o DVT in 1977 admitted consult GI IV fluids, home meds, DVT prophylaxis. Full code. P.r.n. pain meds. need additional bowel prep if colonoscopy is planned. 07/03 STILL NOTES BLOOD IN STOOL HGB STABLE d/w RN History of Present Illness History of Present Illness Ms Holguin is a 70yo female w/ PMHx breast cancer, DVT, CVAx2, chronic pain on chronic opioids who presented to the ER with abdominal pain. She has associated nausea. It has been occurring for a couple of months and progressed, feels is all in her LLQ. She tried taking some imhl-ynr-eywgrwv meds, but that did not help. She does have a previous history of diverticulitis. We did a CAT scan here in the ER, it is showing some diverticular disease without obvious inflammation. She also has moderate colonic stool and gallstones. Notes that she had an abnormal colonoscopy 4 years ago with multiple polyps and was told to have a repeat colonoscopy. She has not been completely able to tolerate bowel prep and wanted to discontinue early due to multiple bowel movements. She does still have some brown in her stool currently. 07/05: Still with pain in bilateral lower quadrants. Some blood mixed in with her stool. 07/06: Afebrile. Still with left lower quadrant pain, and has some right lower quadrant pain today. Feels like it is better than when she first came in, but she is strenuously requesting a colonoscopy. She did take bowel preparation overnight and is having slightly brown liquid stools frequently. 07/07: Plan for colonoscopy this afternoon. Still with abdominal pain. Colonoscopy with no acute bleeding or source of acute pain but pandiverticulosis. Vitals/I&O Vitals/I&O: Vital Signs Date Time Temp Pulse Resp B/P (MAP) Pulse Ox O2 Delivery O2 Flow Rate FiO2 07/08/20 08:19 72 134/62 07/08/20 08:11 20 93 Room Air 07/08/20 07:15 97.8 97.8 07/07/20 09:03 2 I & O 07/07/20 07/07/20 07/08/20 15:00 23:00 07:00 Intake Total 900 ml 540 ml 1400 ml Balance 900 ml 540 ml 1400 ml Physical Exam Physical Exam: HEENT: Normal cephalic atraumatic, external auditory canals are patent. EYES: Extraocular muscles are intact, pupils are equally round and reactive to light and accommodation. MUSCULOSKELETAL: Well developed, well nourished, good range of motion. ENDOCRINE: No thyromegaly was palpated. LYMPHATICS: No cervical chain or axillary nodes were noted. HEMATOPOIETIC: No bruising. NECK: Supple, no JVD, no thyromegaly was noted. LUNGS: Clear to auscultation in all lung masterson without rhonchi or wheezing. CHEST: She does have a left chest Port-A-Cath. HEART: RRR, S1, S2 present. Peripheral pulses intact, no obvious murmurs were noted. ABDOMEN: She has decreased bowel sounds with pain in the left lower quadrant. EXTREMITIES: Without any cyanosis, clubbing, or edema. Pedal pulses intact, Homans sign is negative. NEUROLOGIC: Normal speech, normal tone. A & O x3, moves all extremities, no obvious focal deficits. PSYCHIATRIC: Normal affect, normal mood. Stable. SKIN: No ulcerations or rashes, good skin turgor, no jaundice. VASCULAR: Good capillary refill, neurovascular bundle appears to be intact. General: Alert, Oriented X3 Heart: Regular rate Lungs: Clear Abdomen: Normal bowel sounds, Soft, No tenderness Extremities: No clubbing Skin: No rashes Labs Labs: Laboratory Tests Test 07/07/20 16:49 07/07/20 21:16 07/08/20 07:53 Glucose (Fingerstick) 150 mg/dL (70-99) 277 mg/dL (70-99) 185 mg/dL (70-99) Assessment and Plan Assessmemt and Plan Problems Medical Problems: (1) Diverticulosis Status: Acute (2) Gallstones Status: Acute (3) Intractable abdominal pain Status: Acute Comment Review of Relevant I have reviewed the following items shayne (where applicable) has been applied. Justicifation of Admission Dx: Justifications for Admission: Justification of Admission Dx: Comment: (Intractable abdominal pain) NEYMAR HULL MD Jul 08, 2020 11:40
[2020-07-08] MEDS: LUBIPROSTONE 24 MCG CAPSULE PO SCH ×2 (12:14→17:22)
[2020-07-08] MEDS ORDERED: HEPARIN PF 500 UNIT/5 ML DISP.SYRIN. IVP PRN (12:15)
[2020-07-08] MEDS: ONDANSETRON PF 4 MG/2 ML VIAL. IVP PRN (15:09)
[2020-07-08 15:15] VITALS: BP 165/62
[2020-07-08 17:22] VITALS: BP 165/62
--- NOTE | 2020-07-08 18:00 | NUR ---
Patient discharged home to daughter.
--- NOTE | 2020-08-02 14:18 | PDOC3 ---
Discharge Summary Visit Information Date of Admission: Jul 01, 2020 Date of Discharge: Jul 08, 2020 Admitting Diagnosis: Intractable abdominal pain Final Diagnosis Problems Medical Problems: (1) Diverticulosis Status: Acute (2) Gallstones Status: Acute (3) Intractable abdominal pain Status: Acute Brief Hospital Course Allergies Allergies Coded Allergies Type Severity Reaction Last Updated Verified No Known Drug Allergies 07/07/20 No Brief Hospital Course Ms Holguin is a 70yo female w/ PMHx breast cancer, DVT, CVAx2, chronic pain on chronic opioids who presented to the ER with abdominal pain. She has associated nausea. It has been occurring for a couple of months and progressed, feels is all in her LLQ. She tried taking some qwos-org-mrxwpmj meds, but that did not help. She does have a previous history of diverticulitis. We did a CAT scan here in the ER, it is showing some diverticular disease without obvious inflammation. She also has moderate colonic stool and gallstones. Notes that she had an abnormal colonoscopy 4 years ago with multiple polyps and was told to have a repeat colonoscopy. She has not been completely able to tolerate bowel prep and wanted to discontinue early due to multiple bowel movements. She does still have some brown in her stool currently. Consults: GI 07/03: STILL NOTES BLOOD IN STOOL HGB STABLE 07/05: Still with pain in bilateral lower quadrants. Some blood mixed in with her stool. 07/06: Afebrile. Still with left lower quadrant pain, and has some right lower quadrant pain today. Feels like it is better than when she first came in, but she is strenuously requesting a colonoscopy. She did take bowel preparation overnight and is having slightly brown liquid stools frequently. 07/07: Colonoscopy with no acute bleeding or source of acute pain but pandiverticulosis. Problem list: Abdominal pain. INTRACTABLE morbid obesity LLQ pain-with history of polyps and diveritcular disease. Opioid induced constipation leads differential Acute blood loss anemia - likely from lower GI losses from diverticulosis vs polyps. Will cont to monitor r/o Malignancy, ischeimc coliits, recurrent colon polyps Moderate colonic stool content. Colonic diverticulosis without evidence for acute diverticulitis. Cholelithiasis without CT evidence for acute cholecystitis. Hypodense splenic lesion likely cyst. Nonobstructive right interpolar renal calculus. fatty liver. H/o metastatic breast cancer H/o CVA x2 H/o DVT in 1977 Greater than 30 minutes spent on d/c home Discharge Information Condition at Discharge: Improved Follow Up: Weeks (1) Disposition/Orders: D/C to Home Scheduled Amlodipine Besylate (Amlodipine Besylate) 2.5 Mg Tablet, 2.5 MG PO DAILY for hypertension, (Reported) Entered as Reported by: SEVEN DA SILVA on 07/02/20303 Last Taken: Unknown Dose on 07/01/20899 Last Action: Converted on 07/02/201739 by TEVIN SPRING Atorvastatin Calcium (Atorvastatin Calcium) 40 Mg Tablet, 40 MG PO HS for FOR CHOLESTEROL, (Reported) Entered as Reported by: LORETTA DA SILVA on 07/04/19817 Last Taken: Unknown Dose on 06/30/202099 Last Action: Continued on 07/02/201739 by TEVIN SPRING Carvedilol (Carvedilol ) 6.25 Mg Tablet, 6.25 MG PO BIDWMEALS for CARDIAC, (Reported) Entered as Reported by: SEVEN DA SILVA on 07/02/20303 Last Taken: Unknown Dose on 07/01/20899 Last Action: Continued on 07/02/201739 by TEVIN SPRING Citalopram Hydrobromide (Celexa) 40 Mg Tablet, 40 MG PO HS for Depression, (Reported) Entered as Reported by: LORETTA DA SILVA on 07/04/19815 Last Taken: Unknown Dose on 06/30/202099 Last Action: HELD on 07/02/201739 by TEVIN SPRING Clopidogrel Bisulfate (Clopidogrel) 75 Mg Tablet, 75 MG PO DAILY for TO PREVENT BLOOD CLOTS, (Reported) Entered as Reported by: LORETTA DA SILVA on 07/04/19815 Last Taken: Unknown Dose on 07/01/20899 Last Action: Continued on 1739 by TEVIN SPRING Dicyclomine Hcl (Dicyclomine Hcl) 10 Mg Capsule, 10 MG PO QIDACHS for Abdominal pain for 30 Days, #120 Ref 2 Prescribed by: NEYMAR HULL MD on 07/05/20 1211 Fentanyl (FENTANYL 50mcg/hr) 1 Each Patch.td72, 1 PATCH TD Q72H for Bone mets, (Reported) Entered as Reported by: LORETTA DA SILVA on 07/04/19815 Last Action: Continued on 07/02/201739 by TEVIN SPRING Metformin Hcl (Metformin Hcl) 500 Mg Tablet, 500 MG PO DAILY08 for ANTI- DIABETIC, (Reported) Entered as Reported by: LORETTA DA SILVA on 07/04/19815 Last Taken: Unknown Dose on 07/01/20899 Last Action: HELD on 07/02/201739 by TEVIN SPRING Montelukast Sodium (Montelukast Sodium Tablet ) 10 Mg Tablet, 10 MG PO HS for FOR ASTHMA, (Reported) Entered as Reported by: LORETTA DA SILVA on 07/04/19815 Last Taken: Unknown Dose on 06/30/202099 Last Action: Continued on 07/02/201739 by TEVIN SPRING Omeprazole (Omeprazole) 40 Mg Capsule.dr, 1 CAP PO DAILY for GERD, #30 Ref 3 (Reported) Entered as Reported by: SEVEN DA SILVA on 07/02/20303 Last Taken: Unknown Dose on 07/01/20899 Last Action: HELD on 07/02/201739 by TEVIN SPRING Tizanidine Hcl (Tizanidine Hcl) 4 Mg Tablet, 4 MG PO TID for muscle spasm for 30 Days, #90 Prescribed by: KIM TY MD on 03/26/20940 Last Taken: Unknown Dose on 07/01/20899 Last Action: Continued on 07/02/201739 by TEVIN SPRING [Diclofenac Sodium] 100 GM GEL..GRAM., 1 SANDER TP BID for 7 Days, #14 Prescribed by: KIM TY MD on 03/26/20940 Last Action: HELD on 07/02/201739 by TEVIN SPRING Scheduled PRN Furosemide (Lasix) 40 Mg Tablet, 40 MG PO DAILY PRN for leg swelling, (Reported) Entered as Reported by: LORETTA DA SILVA on 07/04/19815 Last Taken: Unknown Dose on 06/28/20899 Last Action: Continued on 07/02/201739 by TEVIN SPRING Morphine Sulfate (Morphine Sulfate) 15 Mg Tablet, 15 MG PO PRN Q6HRS PRN for SEVERE PAIN 7-10 for 6 Days, #24 Prescribed by: NEYMAR HULL MD on 07/08/20 1134 Justicifation of Admission Dx: Justifications for Admission: Justification of Admission Dx: Comment: (Intractable abdominal pain) NEYMAR HULL MD Aug 02, 2020 14:18
== END 2020-07-08 18:00 | disposition home or self-care (01) | DRG 392 ==
LOC: ER 16:10 → 5 NORTH 19:26
PROVIDERS: ADMIT Internal Medicine; ATTEND Internal Medicine
PROC: 0DJD8ZZ Inspection of Lower Intestinal Tract, Via Natural or Artificial Opening Endoscopic (ICD-10-PCS; principal; 2020-07-07 08:30)
DX: K57.30 Diverticulosis of large intestine without perforation or abscess without bleeding (principal); D61.818 Other pancytopenia; D62 Acute posthemorrhagic anemia; C79.51 Secondary malignant neoplasm of bone; K80.20 Calculus of gallbladder without cholecystitis without obstruction; E78.00 Pure hypercholesterolemia, unspecified; E78.5 Hyperlipidemia, unspecified; F41.9 Anxiety disorder, unspecified; G89.29 Other chronic pain; I10 Essential (primary) hypertension; I25.10 Atherosclerotic heart disease of native coronary artery without angina pectoris; I48.91 Unspecified atrial fibrillation; J44.9 Chronic obstructive pulmonary disease, unspecified; K64.8 Other hemorrhoids; K76.0 Fatty (change of) liver, not elsewhere classified; F32.9 Major depressive disorder, single episode, unspecified; E11.42 Type 2 diabetes mellitus with diabetic polyneuropathy; K21.9 Gastro-esophageal reflux disease without esophagitis; E66.01 Morbid (severe) obesity due to excess calories; Z20.828 Contact with and (suspected) exposure to other viral communicable diseases; C50.919 Malignant neoplasm of unspecified site of unspecified female breast; M19.90 Unspecified osteoarthritis, unspecified site; Z68.33 Body mass index [BMI] 33.0-33.9, adult; N20.0 Calculus of kidney; Z79.891 Long term (current) use of opiate analgesic; Z82.49 Family history of ischemic heart disease and other diseases of the circulatory system; Z83.3 Family history of diabetes mellitus; Z86.711 Personal history of pulmonary embolism; Z86.718 Personal history of other venous thrombosis and embolism; Z86.73 Personal history of transient ischemic attack (TIA), and cerebral infarction without residual deficits; Z87.19 Personal history of other diseases of the digestive system; Z87.891 Personal history of nicotine dependence; Z95.5 Presence of coronary angioplasty implant and graft
CPT/HCPCS: 36415; 45378; 74177; 80048; 80053; 80307; 81001; 82607; 82962; 83520; 83615; 83690; 83735; 83921; 84165; 85025; 85027; 85045; 85610; 85730; 87426; 96361; 96374; 96375; 96376; G0480; J1170; J1642; J1815; J2212; J2270; J2405; J2704; J3010; J3420; J3490; J7030; J7120; Q9967; 99285-25; G0378; U0003-CS

== ENCOUNTER → 2020-07-21 | Outpatient (CLI) | payer MEDICARE ==
[2020-07-08 17:22] VITALS: BP 165/62
[~2020-07-21] MED LIST changes: +AMLO2.5T5 PO; +CARV6.2511 PO; +DICY10CA3 PO; +IBUP-1060 PO
[2020-07-21 15:09] LABS: BASO % 0 % (0-3); EOS # 0.1 x10^3/uL (0.0-0.7); EOS % 1 % (0-3); HEMATOCRIT 38.9 % (36.0-47.0); HEMOGLOBIN 13.1 g/dL (12.0-15.5); LYMPH # 1.4 x10^3/uL (1.0-4.8); LYMPH % 22 % (24-48); MEAN CORPUSCULAR HEMOGLOBIN 32 pg (25-35); MEAN CORPUSCULAR HGB CONC 34 g/dL (31-37); MEAN CORPUSCULAR VOLUME 95 fL (79-100); MONO # 0.3 x10^3/uL (0.0-1.1); MONO % 5 % (0-9); NEUT # 4.7 x10^3/uL (1.8-7.7); NEUT % 72 % (31-73); PLATELET COUNT 200 x10^3/uL (140-400); RED CELL DISTRIBUTION WIDTH 15.1 % (11.5-14.5); WHITE BLOOD COUNT 6.5 x10^3/uL (4.0-11.0)
[2020-07-21 15:16] LABS: CALCIUM 8.6 mg/dL (8.5-10.1); CREATININE 0.8 mg/dL (0.6-1.0); GFR 70.7
[2020-07-21 15:22] LABS: ALBUMIN 3.9 g/dL (3.4-5.0); ALBUMIN/GLOBULIN RATIO 0.9 (1.0-1.7); TOTAL BILIRUBIN 0.8 mg/dL (0.2-1.0); TOTAL PROTEIN 8.3 g/dL (6.4-8.2)
== END | disposition home or self-care (01) ==
LOC: ONCLAB 14:45
PROVIDERS: ATTEND Internal Medicine Hematology & Oncology
DX: C50.911 Malignant neoplasm of unspecified site of right female breast (principal)
CPT/HCPCS: 36415; 80053; 85025

== ENCOUNTER → 2020-08-06 | Outpatient (CLI) | payer MEDICARE ==
[2020-07-08 17:22] VITALS: BP 165/62
[~2020-08-06] MED LIST changes: +AMLO-186 PO; +AMLO-187 PO; -AMLO10TA8 PO; -AMLO5TAB10 PO
--- NOTE | 2020-08-06 18:16 | RAD ---
EXAM: PET W CT SKULL TO MIDTHIGH EXAM DATE: 08/06/2020 INDICATION: Breast cancer restaging. Diabetic on metformin. RADIOPHARMACEUTICAL: 12.65 mCi of F-18 Fluorodeoxyglucose (FDG) I.V. via the right wrist. TECHNIQUE: Patient weight: 179 pounds. Following at least four-hour fasting, the patient's blood glucose was 195 mg/dl. Approximately 1 hour after administration of FDG, overlapping emission scanning was performed from the orbital meatal line through the pelvis. A low-dose CT was performed for attenuation correction purposes and anatomic localization. Fused images of PET and CT were reviewed. Any standardized uptake values (SUV) reported are maximum values within a volume region of interest, expressed in gm/ml. COMPARISON: PET CT of 01/23/2020 FINDINGS: PET: High background activity is again evident. Uptake near the xiphoid shows a max SUV of 2.0. Nodular pattern of uptake in the liver is again demonstrated. New focal uptake in the ascending colon to max SUV of 6.3. Otherwise no new abnormal FDG uptake is apparent. CT: In the head and neck, carotid arterial calcifications are demonstrated. No cervical adenopathy. In the chest, stable left tunneled subclavian approach chest port terminating in the SVC. Stable postlumpectomy changes in the right breast and axillary pao dissection. Benign oil cyst in the inferior right breast. Lungs show respiratory motion artifact with no nodules, consolidation or masses. No pleural effusion. In the abdomen, no discrete hepatic mass is identified on noncontrast CT although mild contour deformity of the left hepatic lobe (axial image 23 of series 3) is noted. This is unchanged from the previous examination. No biliary dilation. Mild gallbladder distention is noted along with a dependent gallstone. Low-density lesion in the spleen measuring 1.9 cm is unchanged and is most compatible with a splenic cyst. Nonobstructing superior pole right renal 4 mm stone. Stable 1 cm nodular density at the superior pole right kidney, likely a cyst. Bowel shows wall thickening in the ascending colon new from the previous examination with mild prominence of the mesenteric vessels, best illustrated on axial image 289 of series 3. This correlates with the area of focal increased radiopharmaceutical uptake on same-day PET imaging. Focal ectasia of the infrarenal abdominal aorta to 2.4 cm not significantly changed in the interval. Bilateral glenohumeral degenerative changes. No acute or aggressive appearing osseous lesions. IMPRESSION: Findings overall show no evidence of metabolically active disease recurrence or metastasis status post right segmental mastectomy and axillary pao dissection. There are however new incidental inflammatory changes in the ascending colon. Correlate clinically. Electronically signed by: Nguyen Sterling MD (08/06/2020 6:14 PM) [id number]
== END ==
LOC: PETSC 08:44
PROVIDERS: ATTEND Internal Medicine Hematology & Oncology
DX: C50.911 Malignant neoplasm of unspecified site of right female breast (principal); C79.51 Secondary malignant neoplasm of bone; N20.0 Calculus of kidney; I65.29 Occlusion and stenosis of unspecified carotid artery; D73.4 Cyst of spleen; K82.8 Other specified diseases of gallbladder; I50.9 Heart failure, unspecified; J84.9 Interstitial pulmonary disease, unspecified
CPT/HCPCS: 78815; A9552

== ENCOUNTER → 2020-08-27 | Outpatient (CLI) | payer MEDICARE ==
[2020-08-27 09:55] LABS: BASO % 1 % (0-3); EOS % 1 % (0-3); HEMATOCRIT 35.9 % (36.0-47.0); LYMPH # 1.2 x10^3/uL (1.0-4.8); LYMPH % 23 % (24-48); MEAN CORPUSCULAR HEMOGLOBIN 32 pg (25-35); MEAN CORPUSCULAR HGB CONC 33 g/dL (31-37); MEAN CORPUSCULAR VOLUME 97 fL (79-100); MONO # 0.3 x10^3/uL (0.0-1.1); MONO % 6 % (0-9); NEUT # 3.7 x10^3/uL (1.8-7.7); NEUT % 70 % (31-73); PLATELET COUNT 158 x10^3/uL (140-400); RED BLOOD COUNT 3.71 x10^6/uL (3.50-5.40); WHITE BLOOD COUNT 5.4 x10^3/uL (4.0-11.0)
[2020-08-27 10:00] LABS: CALCIUM 9.3 mg/dL (8.5-10.1); CREATININE 0.7 mg/dL (0.6-1.0); GFR 82.5; POTASSIUM 4.1 mmol/L (3.5-5.1)
[2020-08-27 10:06] LABS: ALBUMIN 3.8 g/dL (3.4-5.0); TOTAL BILIRUBIN 0.5 mg/dL (0.2-1.0); TOTAL PROTEIN 7.8 g/dL (6.4-8.2)
== END ==
LOC: ONCLAB 08:00
PROVIDERS: ATTEND Internal Medicine Hematology & Oncology
DX: C50.911 Malignant neoplasm of unspecified site of right female breast (principal)
CPT/HCPCS: 36415; 80053; 85025

== ENCOUNTER → 2021-04-14 | Outpatient (CLI) | payer MEDICARE ==
[2020-11-01 10:29] VITALS: BP 148/65
[~2021-04-14] MED LIST changes: -LISI-334 PO; +LISI20TA18 PO; +REGADENOSON 0.4 MG/5 ML DISP.SYRIN. IV ONE
--- NOTE | 2021-04-15 13:04 | CARD ---
MR#: [id number] Date of Study: 04/14/2021 Ordering Physician: KEELY ESPINOSA, Referring Physician: KEELY ESPINOSA Tech: Jada Barragan [facility] APPROVED REPORT EXAM: Two-dimensional and M-mode echocardiogram with Doppler and color Doppler. Other Information Quality : AverageHR: 81bpm Rhythm : NSR INDICATION Dyspnea Cardiac Disease: CAD RISK FACTORS Hypertension Obesity Hyperlipidemia Diabetes 2D DIMENSIONS RVDd2.7 (2.9-3.5cm)Left Atrium(2D)4.8 (1.6-4.0cm) IVSd1.0 (0.7-1.1cm)Aortic Root(2D)3.5 (2.0-3.7cm) LVDd4.1 (3.9-5.9cm)LVOT Diameter2.1 (1.8-2.4cm) PWd1.1 (0.7-1.1cm)LVDs2.6 (2.5-4.0cm) FS (%) 36.8 %SV50.2 ml LVEF(%)67.1 (>50%) Aortic Valve AoV Peak David.128.4cm/sAoV VTI29.6cm AO Peak GR.6.6mmHgLVOT Peak David.113.8cm/s AO Mean GR.3mmHgAVA (VMAX)3.03cm2 Mitral Valve MV E Rqoikbiw30.3cm/sMV DECEL OQFX874dr MV A Vtrzbzpa35.1cm/sE/A Ratio1.0 Pulmonary Valve PV Peak Lxaahdxi76.4cm/s Tricuspid Valve TR P. Dxsdesur352an/sTR Peak Gr.30mmHg Pulmonary Vein S1 Lzpczhmi42.3cm/sD2 Kpwqynea13.0cm/s PVa cjiaprmu231pvdp LEFT VENTRICLE The left ventricle is normal size. There is borderline concentric left ventricular hypertrophy. The l eft ventricular systolic function is normal and the ejection fraction is within normal range. EF 55% There is normal LV segmental wall motion. Tissue Doppler imaging reveals moderate left ventricular di astolic dysfunction. RIGHT VENTRICLE The right ventricle is normal size. There is normal right ventricular wall thickness. The right ventr icular systolic function is normal. ATRIA The left atrium size is normal. The right atrium size is normal. The interatrial septum is intact wit h no evidence for an atrial septal defect or patent foramen ovale as noted on 2-D or Doppler imaging. AORTIC VALVE The aortic valve is normal in structure and function. Doppler and Color Flow revealed no significant aortic regurgitation. There is no significant aortic valvular stenosis. MITRAL VALVE The mitral valve is normal in structure and function. There is no evidence of mitral valve prolapse. There is no mitral valve stenosis. Doppler and Color-flow revealed mild mitral regurgitation. TRICUSPID VALVE The tricuspid valve is normal in structure and function. Doppler and Color Flow revealed trace tricus pid regurgitation. Estimated PAP 30 mmHg. There is no tricuspid valve stenosis. PULMONIC VALVE Doppler and Color Flow revealed no pulmonic valvular regurgitation. There is no pulmonic valvular ariana nosis. GREAT VESSELS The aortic root is normal in size. The ascending aorta is normal in size. The IVC is normal in size a nd collapses >50% with inspiration. PERICARDIAL EFFUSION There is no evidence of significant pericardial effusion. Critical Notification Critical Value: No <Conclusion> The left ventricular systolic function is normal and the ejection fraction is within normal range. EF 55% There is normal LV segmental wall motion. Doppler and Color Flow revealed trace tricuspid regurgitation. Estimated PAP 30 mmHg. Signed by : Sergey Almaraz, Electronically Approved : 04/15/2021 13:03:45
--- NOTE | 2021-04-15 13:14 | RAD ---
MR#: [id number] Date of Study: 04/14/2021 Ordering Physician: KEELY ESPINOSA, Referring Physician: SHEYLA JUNIOR Tech: ERIC Banks, ARRT (R) (N) APPROVED REPORT Test Type: Pharmacological Stress Nurse/Tech: Suad Dobbins RN Test Indications: CAD Cardiac History: HTN, PTCA 2019, x-smoker, DM Medications: See Electronic Medical Record Medical History: See Electronic Medical Record Resting ECG: SR Resting Heart Rate: 73 bpm Resting Blood Pressure: 150/66mmHg Pretest Chest Pain: None Nurse/Tech Notes Lungs CTA, S1S2 Consent: The procedure was explained to the patient in lay terms. Informed consent was witnessed. Reyes eout was entered into PPDai. History and Stress Test performed by RT Lalita (R) (N) Pharm. Details Pharmacologic stress testing was performed using 0.4mg per 5ml of regadenoson given intravenously ove r 7-10 seconds. Stress Symptoms No chest pain or symptoms. POST EXERCISE Reason for Termination: Infusion complete Max HR: 105 bpm Max Blood Pressure: 144/62mmHg Blood Pressure response to exercise: Normal blood pressure response during stress. Heart Rate response to exercise: Normal response Chest Pain: No. Arrhythmia: Yes. PAC ST Change: No. INTERPRETATION Stress EKG Conclusion: No evidence of stress induced EKG changes. Imaging Protocol IMAGE PROTOCOL: Rest Tc-99m/stress Tc-99m 1 day Rest: Stress: Viability: Radiopharm.Tc99m XskvgulxrRl43k Sestamibi Enqn68yMf 31mCi Img Date 04/14/2021 04/14/2021 Inj-Img Tgmp66yve. 90min. Rest Admin Site:IV - Right ForearmAdministrator:RT Lalita (R)(N) Stress Admin Site: IV - Right ForearmAdministrator: RT Lalita (R)(N) STRESS DATA End Diast. Vol.64.0mlLVEDV index BSA36.0ml End Syst. Vol.10.0mlLVESV index BSA6.0ml Myocardial Acfc866.0gEject. Vrjctbwx78.0% Stress Scores Regional WT1.00Summed WT7.00 Regional WM0.00Summed WM0.00 The rest and stress images show normal perfusion, normal contraction and thickening. LV Perf. Quant 17 Seg. SSS5.00 17 Seg. SRS1.00 17 Seg. SDS5.00 Stress Defect Extent (% LAD)0.00Rest Defect Extent (% LAD)0.00Rev. Defect Extent (% LAD)0.00 Stress Defect Extent (% LCX) 21.30Rest Defect Extent (% LCX)0.00Rev. Defect Extent (% LCX)0.00 Stress Defect Extent (% RCA)0.00Rest Defect Extent (% RCA)0.00Rev. Defect Extent (% RCA)0.00 Stress Defect Extent (% JOSÉ MIGUEL)5.00Rest Defect Extent (% JOSÉ MIGUEL)0.00Rev. Defect Extent (% JOSÉ MIGUEL)0.00 Other Information Quality:Average Risk Assessment: Low Risk Conclusion 1. No evidence of EKG changes with stress testing. 2. Normal perfusion at stress/rest. 3. Low risk study. 4. EF > 60%. Signed by : Sergey Almaraz, Electronically Approved : 04/15/2021 13:14:33
== END ==
LOC: NM 08:58
PROVIDERS: ATTEND Internal Medicine Cardiovascular Disease
DX: I34.0 Nonrheumatic mitral (valve) insufficiency (principal); I25.10 Atherosclerotic heart disease of native coronary artery without angina pectoris; I51.7 Cardiomegaly; Z87.891 Personal history of nicotine dependence
CPT/HCPCS: 78452; 93017; 93306; A9500; J2785

== ENCOUNTER → 2021-04-26 | Outpatient (CLI) | payer MEDICARE ==
[2020-11-01 10:29] VITALS: BP 148/65
[~2021-04-26] MED LIST changes: -OMEP40CA45 PO; +OMEP40CA7 PO; -REGADENOSON 0.4 MG/5 ML DISP.SYRIN. IV ONE
[2021-04-26 12:19] LABS: BASO % 0 % (0-3); EOS % 1 % (0-3); HEMATOCRIT 35.1 % (36.0-47.0); HEMOGLOBIN 11.7 g/dL (12.0-15.5); LYMPH # 1.4 x10^3/uL (1.0-4.8); LYMPH % 29 % (24-48); MEAN CORPUSCULAR HEMOGLOBIN 31 pg (25-35); MEAN CORPUSCULAR HGB CONC 33 g/dL (31-37); MEAN CORPUSCULAR VOLUME 93 fL (79-100); MONO # 0.4 x10^3/uL (0.0-1.1); MONO % 7 % (0-9); NEUT % 63 % (31-73); PLATELET COUNT 155 x10^3/uL (140-400); RED BLOOD COUNT 3.77 x10^6/uL (3.50-5.40); RED CELL DISTRIBUTION WIDTH 15.1 % (11.5-14.5); WHITE BLOOD COUNT 4.9 x10^3/uL (4.0-11.0)
[2021-04-26 12:36] LABS: CALCIUM 9.2 mg/dL (8.5-10.1); CREATININE 0.7 mg/dL (0.6-1.0); GFR 82.3; POTASSIUM 3.6 mmol/L (3.5-5.1)
[2021-04-26 12:42] LABS: ALBUMIN 3.8 g/dL (3.4-5.0); ALBUMIN/GLOBULIN RATIO 1.1 (1.0-1.7); TOTAL BILIRUBIN 0.5 mg/dL (0.2-1.0); TOTAL PROTEIN 7.4 g/dL (6.4-8.2)
[2021-04-26 12:49] LABS: FREE T4 1.28 ng/dL (0.76-1.46); THYROID STIM HORMONE (TSH) 3.092 uIU/mL (0.358-3.74)
== END ==
LOC: ONCLAB 11:17
PROVIDERS: ATTEND Internal Medicine Hematology & Oncology
DX: C50.911 Malignant neoplasm of unspecified site of right female breast (principal)
CPT/HCPCS: 36415; 80053; 83615; 84439; 84443; 85025; 86300

== ENCOUNTER → 2021-04-26 | Outpatient (CLI) | payer MEDICARE ==
[2020-11-01 10:29] VITALS: BP 148/65
--- NOTE | 2021-04-26 10:00 | RAD ---
EXAM: 1. BILATERAL DIGITAL 3-D DIAGNOSTIC MAMMOGRAPHY. 2. LEFT BREAST ULTRASOUND. HISTORY: Personal history of right breast cancer status post breast conservation therapy. Completing a diagnostic workup from 06/07/2020 of a left asymmetry. TECHNIQUE: Bilateral full field digital images were obtained in CC, exaggerated left CC and MLO proje ctions with tomosynthesis. Computer-aided detection was applied. Sonography of the left breast was al so performed. COMPARISON: 06/07/2020, 02/12/2019, 07/05/2018. COMPOSITION: B. There are scattered areas of fibroglandular density. FINDINGS: On the right, coarse calcifications are consistent with fat necrosis at the prior lumpectom y site just superior to the nipple. Scattered calcifications elsewhere are benign. There is no suspic ious finding on the right. The site of concern posteriorly and superiorly on the left MLO view is visualized and contiguous with a reduction mammoplasty scar on the exaggerated lateral craniocaudal view. On today's sonography, th is corresponds with a hypoechoic, parallel mass at the 3:00 position 9 cm from the nipple, measuring 1.7 x 0.7 x 1.5 cm. There is no internal perfusion on Doppler. Images of the left axilla reveal no pa thologic-appearing lymph nodes. A port catheter reservoir is also visualized on the left. BI-RADS CATEGORY 4: Suspicious Abnormality--Biopsy is suggested. RECOMMENDATION: 1. A 1.6 cm mass at the left 3:00 position 9 cm from the nipple may represent fat necrosis but is ind eterminate. Ultrasound-guided biopsy is recommended to exclude malignancy. Electronically signed by: Whitney Cadena MD (04/26/2021 9:58 AM) [id number]
== END ==
LOC: MAMMO 08:21
PROVIDERS: ATTEND Internal Medicine Hematology & Oncology
DX: N63.21 Unspecified lump in the left breast, upper outer quadrant (principal)
CPT/HCPCS: 76641; 77066; G0279; 77062

== ENCOUNTER → 2021-05-06 | Outpatient (CLI) | payer MEDICARE ==
[2020-11-01 10:29] VITALS: BP 148/65
--- NOTE | 2021-05-06 13:24 | RAD ---
NM PET/CT SKULL BASE TO MID THIGH Clinical Indication: Breast cancer Comparison: August 06, 2020 Technique: Patient blood glucose at the time of injection is 180 mg/dL. The patient was administered 10.05 mCi of F-18 FDG intravenously. The patient rested quietly during a 60 minute uptake period. The n PET imaging from the skull base to the upper thighs was performed. A noncontrast CT was acquired ov er this same area. The CT is for attenuation correction and anatomic localization, it is not of diagn ostic quality and is not intended to diagnose disease independently of the PET. PQRS Compliance Statement: One or more of the following individualized dose reduction techniques were utilized for this examinat ion: 1. Automated exposure control 2. Adjustment of the mA and/or kV according to patient size 3. Use of iterative reconstruction technique Findings: Background: Mediastinal SUV max: 2.7 Liver SUV max: 3.57 Head and neck: There is no evidence of FDG-avid disease. Chest: There is no evidence of FDG-avid disease. No pathologic lymphadenopathy. Atheromatous plaque within t he aorta. Prior granulous disease within the chest. Coronary artery calcifications. Left chest wall p ort. No consolidation or pleural effusion. No pneumothorax. Scattered linear atelectasis. Unchanged r ight breast fat necrosis. Anterior chest wall hypodense lesion measures 0.8 x 0.8 cm without metabolic activity, likely sebaceo us cyst. Abdomen and pelvis: There is no evidence of FDG-avid disease. The liver, spleen, adrenal glands, and pancreas unremarkabl e. Cholelithiasis. No gallbladder wall thickening. Unchanged right superior renal cyst. Nonobstructin g right intrarenal calculus. No hydronephrosis. Colonic diverticulosis. Normal appendix. No evidence of bowel obstruction. No pathologic lymphadenopa thy. No ascites. Musculoskeletal: There is no evidence of FDG-avid disease. Multilevel cervical and lumbar spondylosis. Grade 1 anterol isthesis L4 on L5. IMPRESSION: 1. No hypermetabolic activity to suggest metastatic disease. 2. Cholelithiasis. Electronically signed by: Henry Munson DO (05/06/2021 1:22 PM) [id number]
== END ==
LOC: PETSC 05-06 09:30
PROVIDERS: ATTEND Internal Medicine Hematology & Oncology
DX: C50.911 Malignant neoplasm of unspecified site of right female breast (principal); K80.20 Calculus of gallbladder without cholecystitis without obstruction
CPT/HCPCS: 78815; A9552

== ENCOUNTER → 2021-05-20 | Outpatient (CLI) | payer MEDICARE ==
[2020-11-01 10:29] VITALS: BP 148/65
[~2021-05-20] MED LIST changes: +LIDOCAINE 1% Multi-Dose 20 ML VIAL. INJ ONE
--- NOTE | 2021-05-20 13:51 | RAD ---
EXAM: Sonographic guided left breast biopsy; left breast biopsy clip placement; left breast postbiops y mammogram. HISTORY: 71-year-old female with a history of right breast cancer, status post right breast conservat ion therapy and left breast reduction mammoplasty, presents for sonographic and biopsy of a lesion wi thin the left breast demonstrated on a mammogram and sonogram performed 04/26/2021. TECHNIQUE: The risks of the procedure discussed with the patient and written and verbal consent was o btained. A timeout was performed. Sonographic imaging of the left breast was performed and the lesion of concern at the 3:00 position measuring 1.7 cm was identified. The skin overlying this region was sterilely prepped, draped and infiltrated with 1 percent lidocaine. Multiple core samples were obtain ed through the lesion of concern with sonographic guidance and a biopsy clip was advanced into the bi opsy bed. Manual compression was maintained until hemostasis is achieved. A sterile bandage was place d. A post biopsy mammogram demonstrates the biopsy clip in expected position. The patient tolerated t he procedure without complication. IMPRESSION: Successful sonographic guided biopsy of a hypoechoic lesion at the 3:00 position of the l eft breast and biopsy clip placement. An addendum to this report be submitted when pathology results are available. Electronically signed by: Lesly Winston MD (05/20/2021 1:49 PM) [id number]
== END | disposition home or self-care (01) ==
LOC: US 12:41
PROVIDERS: ATTEND Internal Medicine Hematology & Oncology
DX: N63.21 Unspecified lump in the left breast, upper outer quadrant (principal); R92.8 Other abnormal and inconclusive findings on diagnostic imaging of breast; I10 Essential (primary) hypertension; E78.00 Pure hypercholesterolemia, unspecified; J44.9 Chronic obstructive pulmonary disease, unspecified; E66.9 Obesity, unspecified; K21.9 Gastro-esophageal reflux disease without esophagitis; E11.9 Type 2 diabetes mellitus without complications; F41.9 Anxiety disorder, unspecified; F32.9 Major depressive disorder, single episode, unspecified; M19.90 Unspecified osteoarthritis, unspecified site; Z85.3 Personal history of malignant neoplasm of breast; Z87.891 Personal history of nicotine dependence; Z98.51 Tubal ligation status; Z98.890 Other specified postprocedural states; Z79.899 Other long term (current) drug therapy; Z79.84 Long term (current) use of oral hypoglycemic drugs
CPT/HCPCS: 19083; 77065

== ENCOUNTER → 2021-06-01 | Outpatient (CLI) | payer MEDICARE ==
[2020-11-01 10:29] VITALS: BP 148/65
[~2021-06-01] MED LIST changes: -LIDOCAINE 1% Multi-Dose 20 ML VIAL. INJ ONE
[2021-06-01 15:04] LABS: BASO % 0 % (0-3); EOS % 1 % (0-3); HEMATOCRIT 35.4 % (36.0-47.0); HEMOGLOBIN 11.9 g/dL (12.0-15.5); LYMPH % 22 % (24-48); MEAN CORPUSCULAR HEMOGLOBIN 32 pg (25-35); MEAN CORPUSCULAR HGB CONC 34 g/dL (31-37); MEAN CORPUSCULAR VOLUME 95 fL (79-100); MONO # 0.3 x10^3/uL (0.0-1.1); MONO % 8 % (0-9); NEUT % 69 % (31-73); PLATELET COUNT 147 x10^3/uL (140-400); RED BLOOD COUNT 3.72 x10^6/uL (3.50-5.40); WHITE BLOOD COUNT 4.4 x10^3/uL (4.0-11.0)
[2021-06-01 15:22] LABS: CALCIUM 8.7 mg/dL (8.5-10.1); CREATININE 0.7 mg/dL (0.6-1.0); GFR 82.3; POTASSIUM 3.8 mmol/L (3.5-5.1)
[2021-06-01 15:28] LABS: ALBUMIN 3.7 g/dL (3.4-5.0); TOTAL BILIRUBIN 0.6 mg/dL (0.2-1.0); TOTAL PROTEIN 7.4 g/dL (6.4-8.2)
== END ==
LOC: ONCLAB 14:08
PROVIDERS: ATTEND Internal Medicine Hematology & Oncology
DX: C50.911 Malignant neoplasm of unspecified site of right female breast (principal)
CPT/HCPCS: 36415; 80053; 85025

== ENCOUNTER 2021-08-07 18:19 | Inpatient (IN) | payer MEDICARE ==
[~2021-08-07] VITALS: Ht 162.6 cm; Wt 80.4 kg
--- NOTE | 2021-08-07 18:46 | ED.ADGEN ---
Past Medical History Past Medical History: Cancer, Diabetes-Type II, High Cholesterol, Hypertension, Other Additional Past Medical Histor: Chronic back pain, breast CA lEFT. Past Surgical History: Other Additional Past Surgical Histo: Breast reduction; CARDIAC STENT PLACEMENT 03/25/20 Smoking Status: Former Smoker Alcohol Use: None Drug Use: None General Adult EDM: Chief Complaint: DYSPNEA/RESPIRATORY DISTRESS HPI: HPI: Patient is a 71 year old 71-year-old female coming in via EMS from home for shortness of breath, tingling in her head and left arm, and feeling like she is "going to pass out". Patient is a poor historian but has a history of breast cancer that she is being treated with some infusions, does not know the names of them. Also had a stent placed last year and is taking anticoagulant but does not know the name. Patient states that when she was at home she checked her blood pressure and it was 200/100 and took one of her blood pressure medications but this also does not know name of) and her blood pressure improved on EMS arri hunter. Patient is also endorsing some chest heaviness. Denies any cough, fevers, GI complaints. Complaining of her baseline chronic neck pain and is wearing a fentanyl patch. Patient has not been vaccinated against COVID-19. Does not wear home oxygen, room air oxygen 88 to 89% Review of Systems: Review of Systems: All other systems within normal limits except for as noted in the HPI Current Medications: Current Medications Medications (Trade) Dose Ordered Sig/Caleb Start Time Stop Time Status Last Admin Dose Admin Info (CONTRAST GIVEN -- Rx MONITORING) 1 each PRN DAILY PRN 08/07/21 22:15 08/09/21 22:14 Iohexol (Omnipaque 350 Mg/ml) 90 ml 1X ONCE 08/07/21 22:15 08/07/21 22:16 DC 08/07/21 22:43 90 ML Oxycodone/ Acetaminophen (Percocet 5/325) 1 tab 1X ONCE 08/07/21 21:15 08/07/21 21:18 DC 08/07/21 21:28 1 TAB Allergies: Allergies: Allergies Coded Allergies Type Severity Reaction Last Updated Verified No Known Drug Allergies 07/07/20 No Physical Exam: PE: Constitutional: Well developed, well nourished, no acute distress, non-toxic appearance. [] HENT: Normocephalic, atraumatic, bilateral external ears normal, nose normal. [] Eyes: PERRLA, conjunctiva normal, no discharge. [] Neck: No rigidity, supple, no stridor. [] Cardiovascular: Regular rate and rhythm, brisk cap refill [] Lungs & Thorax: Non labored symmetric respirations, no tachypnea or respiratory distress [] Abdomen: Soft, nondistended. Skin: Warm, dry, no erythema, no rash. [] Back: Unremarkable Extremities: No deformities, range of motion grossly intact, no lower extremity edema [] Neurologic: Alert and oriented X 3, no focal deficits noted. [] Psychologic: Affect normal, judgement normal, mood normal. [] Current Patient Data: Labs: Laboratory Tests Test 08/07/21 19:30 08/07/21 20:30 08/07/21 21:20 Influenza Type A Antigen Negative (NEGATIVE) Influenza Type B Antigen Negative (NEGATIVE) SARS-CoV-2 Antigen (Rapid) Negative (NEGATIVE) White Blood Count 5.6 x10^3/uL (4.0-11.0) Red Blood Count 3.61 x10^6/uL (3.50-5.40) Hemoglobin 11.5 g/dL (12.0-15.5) L Hematocrit 33.9 % (36.0-47.0) L Mean Corpuscular Volume 94 fL (79-100) Mean Corpuscular Hemoglobin 32 pg (25-35) Mean Corpuscular Hemoglobin Concent 34 g/dL (31-37) Red Cell Distribution Width 14.7 % (11.5-14.5) H Platelet Count 148 x10^3/uL (140-400) Neutrophils (%) (Auto) 64 % (31-73) Lymphocytes (%) (Auto) 28 % (24-48) Monocytes (%) (Auto) 6 % (0-9) Eosinophils (%) (Auto) 1 % (0-3) Basophils (%) (Auto) 1 % (0-3) Neutrophils # (Auto) 3.6 x10^3/uL (1.8-7.7) Lymphocytes # (Auto) 1.6 x10^3/uL (1.0-4.8) Monocytes # (Auto) 0.3 x10^3/uL (0.0-1.1) Eosinophils # (Auto) 0.1 x10^3/uL (0.0-0.7) Basophils # (Auto) 0.1 x10^3/uL (0.0-0.2) Prothrombin Time 12.8 SEC (11.7-14.0) Prothrombin Time INR 1.0 (0.8-1.1) Sodium Level 139 mmol/L (136-145) Potassium Level 4.0 mmol/L (3.5-5.1) Chloride Level 101 mmol/L (98-107) Carbon Dioxide Level 30 mmol/L (21-32) Anion Gap 8 (6-14) Blood Urea Nitrogen 12 mg/dL (7-20) Creatinine 0.7 mg/dL (0.6-1.0) Estimated GFR (Cockcroft-Gault) 82.3 BUN/Creatinine Ratio 17 (6-20) Glucose Level 137 mg/dL (70-99) H Lactic Acid Level 1.4 mmol/L (0.4-2.0) Calcium Level 8.7 mg/dL (8.5-10.1) Phosphorus Level 4.1 mg/dL (2.6-4.7) Magnesium Level 1.5 mg/dL (1.8-2.4) L Total Bilirubin 0.6 mg/dL (0.2-1.0) Aspartate Amino Transferase (AST) 23 U/L (15-37) Alanine Aminotransferase (ALT) 28 U/L (14-59) Alkaline Phosphatase 59 U/L (46-116) Troponin I Quantitative < 0.017 ng/mL (0.000-0.055) TB-Esr-J-Type Natriuretic Peptide 168 pg/mL (0-124) H Total Protein 6.9 g/dL (6.4-8.2) Albumin 3.6 g/dL (3.4-5.0) Albumin/Globulin Ratio 1.1 (1.0-1.7) Urine Collection Type Unknown Urine Color Yellow Urine Clarity Clear Urine pH 5.5 (<5.0-8.0) Urine Specific Manning 1.015 (1.000-1.030) Urine Protein Negative mg/dL (NEG-TRACE) Urine Glucose (UA) Negative mg/dL (NEG) Urine Ketones (Stick) Negative mg/dL (NEG) Urine Blood Negative (NEG) Urine Nitrite Negative (NEG) Urine Bilirubin Negative (NEG) Urine Urobilinogen Dipstick 1.0 mg/dL (0.2 mg/dL) Urine Leukocyte Esterase Negative (NEG) Urine RBC 0 /HPF (0-2) Urine WBC 0 /HPF (0-4) Urine Squamous Epithelial Cells Few /LPF Urine Bacteria 0 /HPF (0-FEW) Urine Mucus Slight /LPF Laboratory Tests 08/07/21 20:30 Laboratory Tests 08/07/21 20:30 Vital Signs: Vital Signs Date Time Temp Pulse Resp B/P (MAP) Pulse Ox O2 Delivery O2 Flow Rate FiO2 08/07/21 23:08 74 15 176/75 (108) 96 Nasal Cannula 3.0 08/07/21 18:41 98.2 98.2 EKG: EKG: Sinus rhythm, heart rate 70 bpm, normal axis, no ST elevation or depression, no ectopy. Normal intervals [] Heart Score: C/O Chest Pain: No HEART Score for Chest Pain: HEART Score for Chest Pain Response (Comments) Value History Moderately Suspicious 1 ECG Nonspecific Repolarizatio 1 Age > 65 2 Risk Factors >3 Risk Factors or Hx CAD 2 Troponin < Normal Limit 0 Total 6 Risk Factors: Risk Factors: DM, Current or recent (<one month) smoker, HTN, HLP, family history of CAD, obesity. Risk Scores: Score 0 - 3: 2.5% MACE over next 6 weeks - Discharge Home Score 4 - 6: 20.3% MACE over next 6 weeks - Admit for Clinical Observation Score 7 - 10: 72.7% MACE over next 6 weeks - Early Invasive Strategies Radiology/Procedures: Radiology/Procedures: [facility] [address] [place] [address] IMAGING REPORT Signed PATIENT: VITA DASH ACCOUNT: [id number] : 1950 LOCATION: ER AGE: 71 SEX: F EXAM STATUS: REG ER ORD. PHYSICIAN: LOUIE TINSLEY MD REASON: headache, near syncope PROCEDURE: CT HEAD AND CERVICAL SPINE WO STUDY: CT head and cervical spine without contrast INDICATION: Headache. Near syncope. COMPARISON: CT head 11/01/2020 TECHNIQUE: Axial CT imaging through the head and cervical spine without the use of intravenous contrast. Sagittal and coronal reformats were obtained. One or more of the following individualized dose reduction techniques were utilized for this examination: 1. Automated exposure control 2. Adjustment of the mA and/or kV according to patient size 3. Use of iterative reconstruction technique. FINDINGS: CT head: No acute intracranial hemorrhage. No large area of ragsdale-white matter differentiation loss. No localized mass effect, midline shift or hydrocephalus. Intracranial calcific atherosclerosis and white matter findings most frequently on account of chronic microvascular ischemic change. Intact calvarium. Advanced arthrosis at the right temporomandibular joint with flattening and hypertrophy of the mandibular condyle. Similar but less pronounced findings on the left. Normally aerated mastoid air cells, middle ears and paranasal sinuses. CT cervical spine: No acute fracture or traumatic malalignment. Multilevel, multifactorial spondylosis with associated degenerative grade 1 anterolisthesis of C3 on C4. Asymmetrically advanced degenerative changes at the left C1-C2 lateral mass articulation. Degenerative remodeling and a chronic ossific fragment at the atlantodental interface. Central canal narrowing favored greatest at C4-C5 but not fully characterized. Osseous neural foraminal stenosis ranging from mild to severe mainly from C3-C4 through C5-C6. Dense carotid calcific atherosclerosis. No paraspinous hematoma. The partially imaged thyroid is within normal limits. No apical pneumothorax. IMPRESSION: CT head: 1. No acute intracranial abnormality by CT. CT cervical spine: 1. No acute fracture or traumatic malalignment. 2. Advanced multilevel degenerative changes as described above. Dense carotid calcific atherosclerosis. Electronically signed by: NILSA SAAB MD (08/07/2021 7:50 PM) [facility] DICTATED and SIGNED BY: NILSA SAAB MD DATE: 08/07/21 [id number] [][facility] [address] [place], [place] [id number] IMAGING REPORT Signed PATIENT: VITA DASH ACCOUNT: [id number] : 1950 LOCATION: ER AGE: 71 SEX: F EXAM STATUS: REG ER ORD. PHYSICIAN: LOUIE TINSLEY MD REASON: dyspnea PROCEDURE: CHEST AP ONLY EXAMINATION: XR CHEST 1V CLINICAL HISTORY: Dyspnea EXAM DATE/TIME: 08/07/2021 6:43 PM COMPARISON: 11/01/2020 FINDINGS: Lines, Tubes, and Devices: None. Cardiomediastinal Silhouette: Normal heart size. Aortic atherosclerotic calcification. Lungs and Pleura: Mild bibasilar subsegmental atelectasis and/or scarring, similar to slightly increased from prior study. No definite pleural effusion. Pulmonary vasculature unremarkable. Bones and Soft Tissues: Degenerative changes of the thoracic spine. IMPRESSION: No evidence of acute cardiopulmonary abnormality. Electronically signed by: Renan Ardon DO (08/07/2021 8:20 PM) [facility] DI[facility]ATED and SIGNED BY: RENAN ARDON DO DATE: 08/07/[id number] [facility] [address] [place] [address] IMAGING REPORT Signed PATIENT: VITA DASH ACCOUNT: [id number] : 1950 LOCATION: [address] [place] [address] AGE: 71 SEX: F EXAM STATUS: ADM IN ORD. PHYSICIAN: LOUIE TINSLEY MD REASON: dyspnea, pe PROCEDURE: CT ANGIOGRAPHY CHEST Study: CT CHEST WITH CONTRAST - PULMONARY ANGIOGRAM History: Dyspnea. Pulmonary embolism. Comparison: Correlation is made to a PET/CT from 05/06/2021 Technique: Helical CT of the chest performed after the administration of 90 cc Omnipaque 350 intravenous contrast and timed for angiographic evaluation of the pulmonary arteries per PE protocol. Coronal and sagittal 3D MIP reformations were obtained. One or more of the following individualized dose reduction techniques were utilized for this examination: 1. Automated exposure control 2. Adjustment of the mA and/or kV according to patient size 3. Use of iterative reconstruction technique. Findings: Pulmonary Arteries: No main, lobar or segmental pulmonary embolism. Heart/Systemic Vasculature: Multifocal calcified and noncalcified atheromatous plaque to include trivessel coronary artery involvement. No aortic aneurysm or dissection. A degree of stenosis is present at the left renal artery origin but not well characterized. Mediastinum: Hilar adenopathy or pericardial effusion. Several granulomas. Lungs: No suspicious pulmonary nodule or focal airspace infiltrate. No pleural effusion, pneumothorax or central airway opacification. Neck/Axilla/Body Wall: Axillary surgical changes on the right. Axillary lymph nodes are not pathologically enlarged. Upper Abdomen: Redemonstrated rounded hypoattenuating focus within the medial spleen in keeping with a benign process. Unchanged adrenal gland morphology. Small exophytic cystic focus off the upper pole of the right kidney is stable. Bones: No focally aggressive osseous abnormality or fracture. Scattered degenerative/chronic findings to include a partially mineralized extrusion at T9-T10. Miscellaneous: Left chest wall Port-A-Cath. IMPRESSION: 1. No main, lobar or segmental pulmonary embolism. No acute nonvascular finding seen throughout the chest. 2. Chronic observations to include extensive calcific atherosclerosis with coronary artery involvement. Poorly characterized stenosis at the left renal artery origin. Electronically signed by: NILSA SAAB MD (08/07/2021 11:46 PM) [facility] DICTATED and SIGNED BY: NILSA SAAB MD DATE: 08/07/21 [id number] Course & Med Decision Making: Course & Med Decision Making Pertinent Labs and Imaging studies reviewed. (See chart for details) Patient does not use home oxygen and came in at 88% room air. Improved to mid 90s with 2 L nasal cannula. When trying to move oxygen patient quickly desaturated to 89% before nourished but nasal cannula back on. Will admit for hypoxemia of unknown origin. CT of chest otherwise clear. [] Dragon Disclaimer: Dragon Disclaimer: This electronic medical record was generated, in whole or in part, using a voice recognition dictation system. Departure Departure Impression: Primary Impression: Hypoxia Additional Impression: Person under investigation for COVID-19 Disposition: ADMITTED INPATIENT Admitting Physician: [facility] Referrals: NON,STAFF (PCP) Problem Qualifiers LOUIE TINSLEY MD Aug 07, 2021 18:46
--- NOTE | 2021-08-07 19:52 | RAD ---
STUDY: CT head and cervical spine without contrast INDICATION: Headache. Near syncope. COMPARISON: CT head 11/01/2020 TECHNIQUE: Axial CT imaging through the head and cervical spine without the use of intravenous contra st. Sagittal and coronal reformats were obtained. One or more of the following individualized dose reduction techniques were utilized for this examinat ion: 1. Automated exposure control 2. Adjustment of the mA and/or kV according to patient size 3. Use of iterative reconstruction technique. FINDINGS: CT head: No acute intracranial hemorrhage. No large area of ragsdale-white matter differentiation loss. No localiz ed mass effect, midline shift or hydrocephalus. Intracranial calcific atherosclerosis and white matter findings most frequently on account of chronic microvascular ischemic change. Intact calvarium. Advanced arthrosis at the right temporomandibular joint with flattening and hypertr ophy of the mandibular condyle. Similar but less pronounced findings on the left. Normally aerated ma stoid air cells, middle ears and paranasal sinuses. CT cervical spine: No acute fracture or traumatic malalignment. Multilevel, multifactorial spondylosis with associated degenerative grade 1 anterolisthesis of C3 on C4. Asymmetrically advanced degenerative changes at the left C1-C2 lateral mass articulation. Degener ative remodeling and a chronic ossific fragment at the atlantodental interface. Central canal narrowing favored greatest at C4-C5 but not fully characterized. Osseous neural foramin al stenosis ranging from mild to severe mainly from C3-C4 through C5-C6. Dense carotid calcific atherosclerosis. No paraspinous hematoma. The partially imaged thyroid is with in normal limits. No apical pneumothorax. IMPRESSION: CT head: 1. No acute intracranial abnormality by CT. CT cervical spine: 1. No acute fracture or traumatic malalignment. 2. Advanced multilevel degenerative changes as described above. Dense carotid calcific atheroscleros is. Electronically signed by: NILAS SAAB MD (08/07/2021 7:50 PM) [facility]
[2021-08-07 20:09] LABS: INFLUENZA A PATIENT NEGATIVE (NEGATIVE); INFLUENZA B PATIENT NEGATIVE (NEGATIVE)
--- NOTE | 2021-08-07 20:23 | RAD ---
EXAMINATION: XR CHEST 1V CLINICAL HISTORY: Dyspnea EXAM DATE/TIME: 08/07/2021 6:43 PM COMPARISON: 11/01/2020 FINDINGS: Lines, Tubes, and Devices: None. Cardiomediastinal Silhouette: Normal heart size. Aortic atherosclerotic calcification. Lungs and Pleura: Mild bibasilar subsegmental atelectasis and/or scarring, similar to slightly increa sed from prior study. No definite pleural effusion. Pulmonary vasculature unremarkable. Bones and Soft Tissues: Degenerative changes of the thoracic spine. IMPRESSION: No evidence of acute cardiopulmonary abnormality. Electronically signed by: Renan Moreno DO (08/07/2021 8:20 PM) [facility]
[2021-08-07 20:37] LABS: BASO # 0.1 x10^3/uL (0.0-0.2); BASO % 1 % (0-3); EOS # 0.1 x10^3/uL (0.0-0.7); EOS % 1 % (0-3); HEMATOCRIT 33.9 % (36.0-47.0); HEMOGLOBIN 11.5 g/dL (12.0-15.5); LYMPH # 1.6 x10^3/uL (1.0-4.8); LYMPH % 28 % (24-48); MEAN CORPUSCULAR HEMOGLOBIN 32 pg (25-35); MEAN CORPUSCULAR HGB CONC 34 g/dL (31-37); MEAN CORPUSCULAR VOLUME 94 fL (79-100); MONO # 0.3 x10^3/uL (0.0-1.1); MONO % 6 % (0-9); NEUT # 3.6 x10^3/uL (1.8-7.7); NEUT % 64 % (31-73); PLATELET COUNT 148 x10^3/uL (140-400); RED BLOOD COUNT 3.61 x10^6/uL (3.50-5.40); RED CELL DISTRIBUTION WIDTH 14.7 % (11.5-14.5); WHITE BLOOD COUNT 5.6 x10^3/uL (4.0-11.0)
[2021-08-07 20:45] LABS: PROTHROMBIN TIME PATIENT 12.8 SEC (11.7-14.0)
[2021-08-07 20:49] LABS: CALCIUM 8.7 mg/dL (8.5-10.1); CREATININE 0.7 mg/dL (0.6-1.0); GFR 82.3
[2021-08-07 20:54] LABS: ALBUMIN 3.6 g/dL (3.4-5.0); ALBUMIN/GLOBULIN RATIO 1.1 (1.0-1.7); MAGNESIUM 1.5 mg/dL (1.8-2.4); PHOSPHORUS 4.1 mg/dL (2.6-4.7); TOTAL BILIRUBIN 0.6 mg/dL (0.2-1.0); TOTAL PROTEIN 6.9 g/dL (6.4-8.2)
[2021-08-07] MEDS ORDERED: oxyCODONE/APAP 5/325 1 TAB TABLET PO ONE (21:15)
[2021-08-07 21:38] LABS: BILIRUBIN,URINE NEGATIVE (NEG); CLARITY,URINE CLEAR; COLOR,URINE YELLOW; NITRITE,URINE NEGATIVE (NEG); PH,URINE 5.5 (<5.0-8.0); PROTEIN,URINE NEGATIVE (NEG-TRACE)
[2021-08-07 21:47] LABS: BACTERIA,URINE 0 /HPF (0-FEW); RBC,URINE 0 /HPF (0-2); WBC,URINE 0 /HPF (0-4)
[2021-08-07] MEDS ORDERED: IOHEXOL 350 MG/ML 100 ML VIAL. IV ONE (22:15)
[2021-08-07] MEDS ORDERED: CONTRAST GIVEN. MC PRN (22:15)
[2021-08-07] MEDS ORDERED: ACETAMINOPHEN 325 MG TABLET. PO PRN (23:45)
[2021-08-07] MEDS ORDERED: IPRATRPIUM/ALBUTEROL 0.5/2.5MG 3 ML NEBU. NEB ONE (23:45)
[2021-08-07] MEDS ORDERED: ONDANSETRON PF 4 MG/2 ML VIAL. IVP PRN (23:45)
--- NOTE | 2021-08-07 23:48 | RAD ---
Study: CT CHEST WITH CONTRAST - PULMONARY ANGIOGRAM History: Dyspnea. Pulmonary embolism. Comparison: Correlation is made to a PET/CT from 05/06/2021 Technique: Helical CT of the chest performed after the administration of 90 cc Omnipaque 350 intrave nous contrast and timed for angiographic evaluation of the pulmonary arteries per PE protocol. Ku l and sagittal 3D MIP reformations were obtained. One or more of the following individualized dose reduction techniques were utilized for this examinat ion: 1. Automated exposure control 2. Adjustment of the mA and/or kV according to patient size 3. Use of iterative reconstruction technique. Findings: Pulmonary Arteries: No main, lobar or segmental pulmonary embolism. Heart/Systemic Vasculature: Multifocal calcified and noncalcified atheromatous plaque to include triv essel coronary artery involvement. No aortic aneurysm or dissection. A degree of stenosis is present at the left renal artery origin but not well characterized. Mediastinum: Hilar adenopathy or pericardial effusion. Several granulomas. Lungs: No suspicious pulmonary nodule or focal airspace infiltrate. No pleural effusion, pneumothorax or central airway opacification. Neck/Axilla/Body Wall: Axillary surgical changes on the right. Axillary lymph nodes are not pathologi karie enlarged. Upper Abdomen: Redemonstrated rounded hypoattenuating focus within the medial spleen in keeping with a benign process. Unchanged adrenal gland morphology. Small exophytic cystic focus off the upper pole of the right kidney is stable. Bones: No focally aggressive osseous abnormality or fracture. Scattered degenerative/chronic findings to include a partially mineralized extrusion at T9-T10. Miscellaneous: Left chest wall Port-A-Cath. IMPRESSION: 1. No main, lobar or segmental pulmonary embolism. No acute nonvascular finding seen throughout the chest. 2. Chronic observations to include extensive calcific atherosclerosis with coronary artery involveme nt. Poorly characterized stenosis at the left renal artery origin. Electronically signed by: NILSA SAAB MD (08/07/2021 11:46 PM) [facility]
[2021-08-08] VITALS (7 sets, daily range): BP systolic 149–190; BP diastolic 54–77
--- NOTE | 2021-08-08 | NUR ---
ADMISSION NOTE Pt admitted to room 500 from ER. Pt ambulatory to bathroom and to bed. Pt settled in bed, POC discussed, call light given and explained to pt, pt yair. Pt not wanting to have continuous pulse ox on at this time, would like something to eat. Educated pt on need for continuous monitoring, pt agreeable to oximeter, but doesn't want to wear oxygen at this time. O2 sat in low-mid 90's on RA. Pt left on RA at this time. Admission information and assessment completed. Home medications reviewed and placed in computer. Pt does have home medications at bedside, and pt instructed that when result for Covid PCR comes back, if negative, then meds will need to be sent to our pharmacy for storage. Pt yair. Will monitor.
--- NOTE | 2021-08-08 00:24 | EKG ---
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
[2021-08-08] MEDS ORDERED: IBUP-1060 PO (00:37)
[2021-08-08] MEDS ORDERED: POTA10TA12 PO (00:37)
[2021-08-08] MEDS ORDERED: ESCITALOPRAM OX10 MG PO (00:37)
[2021-08-08] MEDS ORDERED: FAMO40TA57 PO (00:37)
[2021-08-08] MEDS ORDERED: HYDR-2769 PO (00:37)
[2021-08-08] MEDS: MORPHINE SULFATE 4 MG/ML INJ. IVP PRN ×6 (01:10→21:44)
[2021-08-08] MEDS ORDERED: FENT1PAT19 TD (01:56)
[2021-08-08] MEDS ORDERED: DICY10CA3 PO (01:56)
[2021-08-08] MEDS ORDERED: TIZA4TAB2 PO (01:56)
[2021-08-08 06:02] LABS: BASO % 0 % (0-3); EOS # 0.1 x10^3/uL (0.0-0.7); EOS % 2 % (0-3); HEMATOCRIT 34.4 % (36.0-47.0); HEMOGLOBIN 11.5 g/dL (12.0-15.5); LYMPH # 1.6 x10^3/uL (1.0-4.8); LYMPH % 35 % (24-48); MEAN CORPUSCULAR HEMOGLOBIN 32 pg (25-35); MEAN CORPUSCULAR HGB CONC 34 g/dL (31-37); MEAN CORPUSCULAR VOLUME 94 fL (79-100); MONO # 0.3 x10^3/uL (0.0-1.1); MONO % 6 % (0-9); NEUT # 2.6 x10^3/uL (1.8-7.7); NEUT % 57 % (31-73); PLATELET COUNT 145 x10^3/uL (140-400); RED BLOOD COUNT 3.65 x10^6/uL (3.50-5.40); RED CELL DISTRIBUTION WIDTH 14.8 % (11.5-14.5); WHITE BLOOD COUNT 4.6 x10^3/uL (4.0-11.0)
[2021-08-08 06:10] LABS: CALCIUM 8.8 mg/dL (8.5-10.1); CREATININE 0.7 mg/dL (0.6-1.0); GFR 82.3; POTASSIUM 3.7 mmol/L (3.5-5.1)
--- NOTE | 2021-08-08 08:16 | PDOC1 ---
History and Physical Date of Service: DOS: DATE: 08/08/21 TIME: 08:10 Chief Complaint: Chief Complain: Shortness of breath History of Present Illness: HPI: 71-year-old female with past medical history of diabetes mellitus type 2, dyslipidemia, hypertension, chronic back pain, breast cancer currently on chemotherapy, who comes in with shortness of breath, tingling on the top of her head and near syncope. Patient is currently on Plavix for a stent that was placed last year. She does check her blood pressure at home regularly and states that in the past couple weeks her blood pressure has been in the 200s over 100. She also does complain of seasonal allergies for which she does complain of some nasal congestion. 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 Normally her blood pressure measures between 130s to 140s systolics. There are no recent blood pressure changes. Patient states that her PCP had her on 2 blood pressure medications but because of her drop in her blood pressure she is only on 1. Denies fevers, chest pain, abdominal pain, diarrhea or hematuria. Patient states that she wants to get vaccinated for Covid because both of her friends had from Covid in the past. Patient normally not on home oxygen but did come to the ED saturating 88% on room air. Past Medical/Surgical History: PMH/PSH: Past Medical History: Cancer, Diabetes-Type II, High Cholesterol, Hypertension, Chronic back pain, breast CA lEFT. Past Surgical History: Breast reduction; CARDIAC STENT PLACEMENT 03/25/20 Allergies: Allergies: Coded Allergies: No Known Drug Allergies (Unverified , 07/07/20) Family History: Family History: Reviewed with no relevant findings Social History: Social History: Smoking Status: Former Smoker Alcohol Use: None Drug Use: None Current Medications: Current Medications Current Medications Oxycodone/ Acetaminophen (Percocet 5/325) 1 tab 1X ONCE PO Last administered on 08/07/21at 21:28; Start 08/07/21 at 21:15; Stop 08/07/21 at 21:18; Status DC Iohexol (Omnipaque 350 Mg/ml) 90 ml 1X ONCE IV Last administered on 08/07/21at 22:43; Start 08/07/21 at 22:15; Stop 08/07/21 at 22:16; Status DC Info (CONTRAST GIVEN -- Rx MONITORING) 1 each PRN DAILY PRN MC SEE COMMENTS; Start 08/07/21 at 22:15; Stop 08/09/21 at 22:14 Albuterol/ Ipratropium (Duoneb) 3 ml 1X ONCE NEB ; Start 08/07/21 at 23:45; Stop 08/07/21 at 23:46; Status DC Ondansetron HCl (Zofran) 4 mg PRN Q8HRS PRN IVP NAUSEA/VOMITING; Start 08/07/21 at 23:45; Stop 08/08/21 at 23:44 Morphine Sulfate (Morphine Sulfate) 4 mg PRN Q2HR PRN IVP PAIN Last administered on 08/08/21at 05:41; Start 08/07/21 at 23:45; Stop 08/08/21 at 23:44 Acetaminophen (Tylenol) 650 mg PRN Q4HRS PRN PO FEVER > 100.3'F; Start 08/07/21 at 23:45; Stop 08/08/21 at 23:44 Influenza Virus Vaccine Quadrival (Flulaval Quad [id number] Syringe) 0.5 ml ONCE ONCE VAX IM ; Start 08/08/21 at 09:00; Stop 08/08/21 at 09:01 Active Scripts Active [Diclofenac Sodium] 100 GM Gel..gram. 1 Matthew TP BID 7 Days Reported FENTANYL 75mcg/hr (Fentanyl) 1 Each Patch.td72 1 Patch TD Q72H Tizanidine Hcl 4 Mg Tablet 4 Mg PO TID PRN Dicyclomine Hcl 10 Mg Capsule 10 Mg PO BID Hydrocodone-Apap 10-325 (Hydrocodone Bit/Acetaminophen) 1 Tab Tablet 1 Tab PO PRN Q4HRS PRN Klor-Con 10 (Potassium Chloride) 10 Meq Tablet.er 10 Meq PO DAILY Escitalopram Oxalate 10 Mg Tablet 10 Mg PO DAILY Ibuprofen 800 Mg Tablet 800 Mg PO PRN Q6HRS PRN Pepcid (Famotidine) 40 Mg Tablet 40 Mg PO HS Omeprazole 40 Mg Capsule. 1 Cap PO DAILY Carvedilol (Carvedilol) 6.25 Mg Tablet 6.25 Mg PO BIDWMEALS Atorvastatin Calcium 40 Mg Tablet 40 Mg PO HS Clopidogrel (Clopidogrel Bisulfate) 75 Mg Tablet 75 Mg PO DAILY Montelukast Sodium Tablet (Montelukast Sodium) 10 Mg Tablet 10 Mg PO HS Lasix (Furosemide) 40 Mg Tablet 40 Mg PO DAILY PRN Metformin Hcl 500 Mg Tablet 1,000 Mg PO BID ROS: Review of Systems Review of System REVIEW OF SYSTEMS: GENERAL: Denies weakness SKIN: No bruising, hair changes or rashes. EYES: No blurred, double or loss of vision. NOSE AND THROAT: No history of nosebleeds, hoarseness or sore throat. HEART: No history of palpitations, chest pain or shortness of breath on exertion. LUNGS: Denies cough, hemoptysis, wheezing or shortness of breath. GASTROINTESTINAL: Denies changes in appetite, nausea, vomiting, diarrhea or constipation. GENITOURINARY: No history of frequency, urgency, hesitancy or nocturia. NEUROLOGIC: Denies history of numbness, tingling, or tremor. PSYCHIATRIC: No history of panic, anxiety or depression. ENDOCRINE: No history of heat or cold intolerance, polyuria or polydipsia. EXTREMITIES: Denies joint pain, pain on walking or stiffness. Physical Exam: Vital Signs: Vital Signs Date Time Temp Pulse Resp B/P (MAP) Pulse Ox O2 Delivery O2 Flow Rate FiO2 08/08/21 06:11 18 90 Room Air 08/08/21 03:00 98.1 74 149/77 (101) 3.0 98.1 Physcial Exam: General: Well developed, well nourished, no acute distress, well appearing HEENT: Pupils equally round and reactive to light, EOMI, no discharge, normal conjunctiva Neck: Supple, no nuchal rigidity, no JVD, trachea midline, no tenderness Cardiac: RRR, no murmurs, no gallops, no rubs Chest/Lungs: CTAB, no wheeze, no rhonchi, no crackles Abdomen: soft, non-distended, no guarding, no peritoneal signs, non-tender Back: No tenderness Extremities: no edema, pulses intact, non-tender,capillary refill <3 sec bilateral upper and lower extremities, Neuro: Alert and oriented x 4, no focal deficits, normal speech Labs: Labs: Laboratory Tests Test 08/07/21 19:30 08/07/21 20:30 08/07/21 21:20 08/08/21 05:50 Influenza Type A Antigen Negative (NEGATIVE) Influenza Type B Antigen Negative (NEGATIVE) SARS-CoV-2 Antigen (Rapid) Negative (NEGATIVE) White Blood Count 5.6 x10^3/uL (4.0-11.0) 4.6 x10^3/uL (4.0-11.0) Red Blood Count 3.61 x10^6/uL (3.50-5.40) 3.65 x10^6/uL (3.50-5.40) Hemoglobin 11.5 g/dL (12.0-15.5) 11.5 g/dL (12.0-15.5) Hematocrit 33.9 % (36.0-47.0) 34.4 % (36.0-47.0) Mean Corpuscular Volume 94 fL (79-100) 94 fL (79-100) Mean Corpuscular Hemoglobin 32 pg (25-35) 32 pg (25-35) Mean Corpuscular Hemoglobin Concent 34 g/dL (31-37) 34 g/dL (31-37) Red Cell Distribution Width 14.7 % (11.5-14.5) 14.8 % (11.5-14.5) Platelet Count 148 x10^3/uL (140-400) 145 x10^3/uL (140-400) Neutrophils (%) (Auto) 64 % (31-73) 57 % (31-73) Lymphocytes (%) (Auto) 28 % (24-48) 35 % (24-48) Monocytes (%) (Auto) 6 % (0-9) 6 % (0-9) Eosinophils (%) (Auto) 1 % (0-3) 2 % (0-3) Basophils (%) (Auto) 1 % (0-3) 0 % (0-3) Neutrophils # (Auto) 3.6 x10^3/uL (1.8-7.7) 2.6 x10^3/uL (1.8-7.7) Lymphocytes # (Auto) 1.6 x10^3/uL (1.0-4.8) 1.6 x10^3/uL (1.0-4.8) Monocytes # (Auto) 0.3 x10^3/uL (0.0-1.1) 0.3 x10^3/uL (0.0-1.1) Eosinophils # (Auto) 0.1 x10^3/uL (0.0-0.7) 0.1 x10^3/uL (0.0-0.7) Basophils # (Auto) 0.1 x10^3/uL (0.0-0.2) 0.0 x10^3/uL (0.0-0.2) Prothrombin Time 12.8 SEC (11.7-14.0) Prothromb Time International Ratio 1.0 (0.8-1.1) Sodium Level 139 mmol/L (136-145) 139 mmol/L (136-145) Potassium Level 4.0 mmol/L (3.5-5.1) 3.7 mmol/L (3.5-5.1) Chloride Level 101 mmol/L (98-107) 101 mmol/L (98-107) Carbon Dioxide Level 30 mmol/L (21-32) 32 mmol/L (21-32) Anion Gap 8 (6-14) 6 (6-14) Blood Urea Nitrogen 12 mg/dL (7-20) 9 mg/dL (7-20) Creatinine 0.7 mg/dL (0.6-1.0) 0.7 mg/dL (0.6-1.0) Estimated GFR (Cockcroft-Gault) 82.3 82.3 BUN/Creatinine Ratio 17 (6-20) Glucose Level 137 mg/dL (70-99) 204 mg/dL (70-99) Lactic Acid Level 1.4 mmol/L (0.4-2.0) Calcium Level 8.7 mg/dL (8.5-10.1) 8.8 mg/dL (8.5-10.1) Phosphorus Level 4.1 mg/dL (2.6-4.7) Magnesium Level 1.5 mg/dL (1.8-2.4) Total Bilirubin 0.6 mg/dL (0.2-1.0) Aspartate Amino Transf (AST/SGOT) 23 U/L (15-37) Alanine Aminotransferase (ALT/SGPT) 28 U/L (14-59) Alkaline Phosphatase 59 U/L (46-116) Troponin I Quantitative < 0.017 ng/mL (0.000-0.055) < 0.017 ng/mL (0.000-0.055) FG-Qiq-A-Type Natriuretic Peptide 168 pg/mL (0-124) Total Protein 6.9 g/dL (6.4-8.2) Albumin 3.6 g/dL (3.4-5.0) Albumin/Globulin Ratio 1.1 (1.0-1.7) Urine Collection Type Unknown Urine Color Yellow Urine Clarity Clear Urine pH 5.5 (<5.0-8.0) Urine Specific [place] 1.015 (1.000-1.030) Urine Protein Negative mg/dL (NEG-TRACE) Urine Glucose (UA) Negative mg/dL (NEG) Urine Ketones (Stick) Negative mg/dL (NEG) Urine Blood Negative (NEG) Urine Nitrite Negative (NEG) Urine Bilirubin Negative (NEG) Urine Urobilinogen Dipstick 1.0 mg/dL (0.2 mg/dL) Urine Leukocyte Esterase Negative (NEG) Urine RBC 0 /HPF (0-2) Urine WBC 0 /HPF (0-4) Urine Squamous Epithelial Cells Few /LPF Urine Bacteria 0 /HPF (0-FEW) Urine Mucus Slight /LPF Test 08/08/21 05:55 Glucose (Fingerstick) 214 mg/dL (70-99) Laboratory Tests Test 08/07/21 19:30 08/07/21 20:30 08/07/21 21:20 08/08/21 05:50 Influenza Type A Antigen Negative (NEGATIVE) Influenza Type B Antigen Negative (NEGATIVE) SARS-CoV-2 Antigen (Rapid) Negative (NEGATIVE) White Blood Count 5.6 x10^3/uL (4.0-11.0) 4.6 x10^3/uL (4.0-11.0) Red Blood Count 3.61 x10^6/uL (3.50-5.40) 3.65 x10^6/uL (3.50-5.40) Hemoglobin 11.5 g/dL (12.0-15.5) 11.5 g/dL (12.0-15.5) Hematocrit 33.9 % (36.0-47.0) 34.4 % (36.0-47.0) Mean Corpuscular Volume 94 fL (79-100) 94 fL (79-100) Mean Corpuscular Hemoglobin 32 pg (25-35) 32 pg (25-35) Mean Corpuscular Hemoglobin Concent 34 g/dL (31-37) 34 g/dL (31-37) Red Cell Distribution Width 14.7 % (11.5-14.5) 14.8 % (11.5-14.5) Platelet Count 148 x10^3/uL (140-400) 145 x10^3/uL (140-400) Neutrophils (%) (Auto) 64 % (31-73) 57 % (31-73) Lymphocytes (%) (Auto) 28 % (24-48) 35 % (24-48) Monocytes (%) (Auto) 6 % (0-9) 6 % (0-9) Eosinophils (%) (Auto) 1 % (0-3) 2 % (0-3) Basophils (%) (Auto) 1 % (0-3) 0 % (0-3) Neutrophils # (Auto) 3.6 x10^3/uL (1.8-7.7) 2.6 x10^3/uL (1.8-7.7) Lymphocytes # (Auto) 1.6 x10^3/uL (1.0-4.8) 1.6 x10^3/uL (1.0-4.8) Monocytes # (Auto) 0.3 x10^3/uL (0.0-1.1) 0.3 x10^3/uL (0.0-1.1) Eosinophils # (Auto) 0.1 x10^3/uL (0.0-0.7) 0.1 x10^3/uL (0.0-0.7) Basophils # (Auto) 0.1 x10^3/uL (0.0-0.2) 0.0 x10^3/uL (0.0-0.2) Prothrombin Time 12.8 SEC (11.7-14.0) Prothromb Time International Ratio 1.0 (0.8-1.1) Sodium Level 139 mmol/L (136-145) 139 mmol/L (136-145) Potassium Level 4.0 mmol/L (3.5-5.1) 3.7 mmol/L (3.5-5.1) Chloride Level 101 mmol/L (98-107) 101 mmol/L (98-107) Carbon Dioxide Level 30 mmol/L (21-32) 32 mmol/L (21-32) Anion Gap 8 (6-14) 6 (6-14) Blood Urea Nitrogen 12 mg/dL (7-20) 9 mg/dL (7-20) Creatinine 0.7 mg/dL (0.6-1.0) 0.7 mg/dL (0.6-1.0) Estimated GFR (Cockcroft-Gault) 82.3 82.3 BUN/Creatinine Ratio 17 (6-20) Glucose Level 137 mg/dL (70-99) 204 mg/dL (70-99) Lactic Acid Level 1.4 mmol/L (0.4-2.0) Calcium Level 8.7 mg/dL (8.5-10.1) 8.8 mg/dL (8.5-10.1) Phosphorus Level 4.1 mg/dL (2.6-4.7) Magnesium Level 1.5 mg/dL (1.8-2.4) Total Bilirubin 0.6 mg/dL (0.2-1.0) Aspartate Amino Transf (AST/SGOT) 23 U/L (15-37) Alanine Aminotransferase (ALT/SGPT) 28 U/L (14-59) Alkaline Phosphatase 59 U/L (46-116) Troponin I Quantitative < 0.017 ng/mL (0.000-0.055) < 0.017 ng/mL (0.000-0.055) FO-Vxh-I-Type Natriuretic Peptide 168 pg/mL (0-124) Total Protein 6.9 g/dL (6.4-8.2) Albumin 3.6 g/dL (3.4-5.0) Albumin/Globulin Ratio 1.1 (1.0-1.7) Urine Collection Type Unknown Urine Color Yellow Urine Clarity Clear Urine pH 5.5 (<5.0-8.0) Urine Specific [place] 1.015 (1.000-1.030) Urine Protein Negative mg/dL (NEG-TRACE) Urine Glucose (UA) Negative mg/dL (NEG) Urine Ketones (Stick) Negative mg/dL (NEG) Urine Blood Negative (NEG) Urine Nitrite Negative (NEG) Urine Bilirubin Negative (NEG) Urine Urobilinogen Dipstick 1.0 mg/dL (0.2 mg/dL) Urine Leukocyte Esterase Negative (NEG) Urine RBC 0 /HPF (0-2) Urine WBC 0 /HPF (0-4) Urine Squamous Epithelial Cells Few /LPF Urine Bacteria 0 /HPF (0-FEW) Urine Mucus Slight /LPF Test 08/08/21 05:55 Glucose (Fingerstick) 214 mg/dL (70-99) Images: Images PROCEDURE: CT ANGIOGRAPHY CHEST Study: CT CHEST WITH CONTRAST - PULMONARY ANGIOGRAM History: Dyspnea. Pulmonary embolism. Comparison: Correlation is made to a PET/CT from 05/06/2021 Technique: Helical CT of the chest performed after the administration of 90 cc Omnipaque 350 intravenous contrast and timed for angiographic evaluation of the pulmonary arteries per PE protocol. Coronal and sagittal 3D MIP reformations were obtained. One or more of the following individualized dose reduction techniques were utilized for this examination: 1. Automated exposure control 2. Adjustment of the mA and/or kV according to patient size 3. Use of iterative reconstruction technique. Findings: Pulmonary Arteries: No main, lobar or segmental pulmonary embolism. Heart/Systemic Vasculature: Multifocal calcified and noncalcified atheromatous plaque to include trivessel coronary artery involvement. No aortic aneurysm or dissection. A degree of stenosis is present at the left renal artery origin but not well characterized. Mediastinum: Hilar adenopathy or pericardial effusion. Several granulomas. Lungs: No suspicious pulmonary nodule or focal airspace infiltrate. No pleural effusion, pneumothorax or central airway opacification. Neck/Axilla/Body Wall: Axillary surgical changes on the right. Axillary lymph nodes are not pathologically enlarged. Upper Abdomen: Redemonstrated rounded hypoattenuating focus within the medial spleen in keeping with a benign process. Unchanged adrenal gland morphology. Small exophytic cystic focus off the upper pole of the right kidney is stable. Bones: No focally aggressive osseous abnormality or fracture. Scattered degenerative/chronic findings to include a partially mineralized extrusion at T9-T10. Miscellaneous: Left chest wall Port-A-Cath. IMPRESSION: 1. No main, lobar or segmental pulmonary embolism. No acute nonvascular finding seen throughout the chest. 2. Chronic observations to include extensive calcific atherosclerosis with coronary artery involvement. Poorly characterized stenosis at the left renal artery origin. PROCEDURE: CHEST AP ONLY IMPRESSION: No evidence of acute cardiopulmonary abnormality. PROCEDURE: CT HEAD AND CERVICAL SPINE WO STUDY: CT head and cervical spine without contrast INDICATION: Headache. Near syncope. COMPARISON: CT head 11/01/2020 TECHNIQUE: Axial CT imaging through the head and cervical spine without the use of intravenous contrast. Sagittal and coronal reformats were obtained. One or more of the following individualized dose reduction techniques were utilized for this examination: 1. Automated exposure control 2. Adjustment of the mA and/or kV according to patient size 3. Use of iterative reconstruction technique. FINDINGS: CT head: No acute intracranial hemorrhage. No large area of [place]-white matter differentiation loss. No localized mass effect, midline shift or hydrocephalus. Intracranial calcific atherosclerosis and white matter findings most frequently on account of chronic microvascular ischemic change. Intact calvarium. Advanced arthrosis at the right temporomandibular joint with flattening and hypertrophy of the mandibular condyle. Similar but less pronounced findings on the left. Normally aerated mastoid air cells, middle ears and paranasal sinuses. CT cervical spine: No acute fracture or traumatic malalignment. Multilevel, multifactorial spondylosis with associated degenerative grade 1 anterolisthesis of C3 on C4. Asymmetrically advanced degenerative changes at the left C1-C2 lateral mass articulation. Degenerative remodeling and a chronic ossific fragment at the atlantodental interface. Central canal narrowing favored greatest at C4-C5 but not fully characterized. Osseous neural foraminal stenosis ranging from mild to severe mainly from C3-C4 through C5-C6. Dense carotid calcific atherosclerosis. No paraspinous hematoma. The partially imaged thyroid is within normal limits. No apical pneumothorax. IMPRESSION: CT head: 1. No acute intracranial abnormality by CT. CT cervical spine: 1. No acute fracture or traumatic malalignment. 2. Advanced multilevel degenerative changes as described above. Dense carotid calcific atherosclerosis. Assessment/Plan Assessment/Plan Acute hypoxic respiratory failure Hypertensive urgency Hypomagnesemia History of left breast cancer currently on chemotherapy History of diabetes mellitus type 2 History of dyslipidemia History of hypertension Admit to hospitalist service for further management Pulmonology consult O2 supplementation and breathing treatments as needed Resume home antihypertensive medications DuoNebs as needed Lovenox for DVT prophylaxis Protonix GI prophylaxis ADA diet CODE STATUS full Discussed with RN and SW Disposition inpatient management as above DPOA: Nesha covington In addition to my E/M visit, advance care planning done with A total time of 20 minutes was spent from 9:00 to 920 face to face in discussion with the patient regarding their goals of care, CODE STATUS. Justifications for Admission Other Justification CAIN JEROME MD Aug 08, 2021 08:16
[2021-08-08] MEDS ORDERED: FLU VACC QUAD 21-22 (6MOS+) PF 0.5 ML SYRINGE. VAX IM ONE (09:00)
--- NOTE | 2021-08-08 11:17 | NUR ---
SW following. Discussed with RN, pt from home, room air, ada diet. Rapid COVID-19 negative - awaiting PCR result. Pulmonology following. RN advised no SW needs at this time. SW will continue to follow.
[2021-08-08] MEDS ORDERED: ONDANSETRON PF 4 MG/2 ML VIAL. IVP PRN (12:45)
[2021-08-08] MEDS ORDERED: ACETAMINOPHEN 325 MG TABLET. PO PRN (12:45)
[2021-08-08] MEDS ORDERED: SENNOSIDES 8.6 MG TABLET PO PRN (12:45)
[2021-08-08] MEDS ORDERED: DOCUSATE SODIUM 100 MG CAPSULE. PO PRN (12:45)
[2021-08-08] MEDS ORDERED: DEXTROSE 50% 25 GM / 50ML DISP.SYRIN. IV PRN (12:45)
[2021-08-08] MEDS ORDERED: PROCHLORPERAZINE 10 MG/2 ML VIAL. IV PRN (12:45)
[2021-08-08] MEDS ORDERED: fentaNYL 75MCG/HR PATCH 1 PATCH PATCH.TD72 TD SCH (13:00)
[2021-08-08] MEDS ORDERED: MAGNESIUM SULFATE 2GM 50 ML IV ONE (13:00)
[2021-08-08] MEDS ORDERED: IPRATRPIUM/ALBUTEROL 0.5/2.5MG 3 ML NEBU. NEB PRN (13:00)
[2021-08-08] MEDS ORDERED: ALBUTEROL SULFATE 2.5 MG/3 ML NEBU. NEB PRN (13:15)
[2021-08-08] MEDS: FLUTICASONE 50MCG/NASAL SPRAY 16GM BOTTLE. NS SCH (13:49)
[2021-08-08] MEDS: INSULIN LISPRO 300 UNITS/3 ML VIAL. SQ SCH ×2 (13:51→17:28)
--- NOTE | 2021-08-08 13:56 | PDOC ---
PULMONARY PROGRESS NOTES DATE: 08/08/21 TIME: 13:55 Vitals Vital Signs Date Time Temp Pulse Resp B/P (MAP) Pulse Ox O2 Delivery O2 Flow Rate FiO2 08/08/21 11:00 98.4 82 18 160/56 (90) 92 Nasal Cannula 3.0 98.4 Lungs: Clear Labs Laboratory Tests Test 08/07/21 19:30 08/07/21 20:30 08/07/21 21:20 08/08/21 05:50 Influenza Type A Antigen Negative (NEGATIVE) Influenza Type B Antigen Negative (NEGATIVE) SARS-CoV-2 RNA (SPENCER) Invalid (Negative) SARS-CoV-2 Antigen (Rapid) Negative (NEGATIVE) White Blood Count 5.6 x10^3/uL (4.0-11.0) 4.6 x10^3/uL (4.0-11.0) Red Blood Count 3.61 x10^6/uL (3.50-5.40) 3.65 x10^6/uL (3.50-5.40) Hemoglobin 11.5 g/dL (12.0-15.5) 11.5 g/dL (12.0-15.5) Hematocrit 33.9 % (36.0-47.0) 34.4 % (36.0-47.0) Mean Corpuscular Volume 94 fL (79-100) 94 fL (79-100) Mean Corpuscular Hemoglobin 32 pg (25-35) 32 pg (25-35) Mean Corpuscular Hemoglobin Concent 34 g/dL (31-37) 34 g/dL (31-37) Red Cell Distribution Width 14.7 % (11.5-14.5) 14.8 % (11.5-14.5) Platelet Count 148 x10^3/uL (140-400) 145 x10^3/uL (140-400) Neutrophils (%) (Auto) 64 % (31-73) 57 % (31-73) Lymphocytes (%) (Auto) 28 % (24-48) 35 % (24-48) Monocytes (%) (Auto) 6 % (0-9) 6 % (0-9) Eosinophils (%) (Auto) 1 % (0-3) 2 % (0-3) Basophils (%) (Auto) 1 % (0-3) 0 % (0-3) Neutrophils # (Auto) 3.6 x10^3/uL (1.8-7.7) 2.6 x10^3/uL (1.8-7.7) Lymphocytes # (Auto) 1.6 x10^3/uL (1.0-4.8) 1.6 x10^3/uL (1.0-4.8) Monocytes # (Auto) 0.3 x10^3/uL (0.0-1.1) 0.3 x10^3/uL (0.0-1.1) Eosinophils # (Auto) 0.1 x10^3/uL (0.0-0.7) 0.1 x10^3/uL (0.0-0.7) Basophils # (Auto) 0.1 x10^3/uL (0.0-0.2) 0.0 x10^3/uL (0.0-0.2) Prothrombin Time 12.8 SEC (11.7-14.0) Prothromb Time International Ratio 1.0 (0.8-1.1) Sodium Level 139 mmol/L (136-145) 139 mmol/L (136-145) Potassium Level 4.0 mmol/L (3.5-5.1) 3.7 mmol/L (3.5-5.1) Chloride Level 101 mmol/L (98-107) 101 mmol/L (98-107) Carbon Dioxide Level 30 mmol/L (21-32) 32 mmol/L (21-32) Anion Gap 8 (6-14) 6 (6-14) Blood Urea Nitrogen 12 mg/dL (7-20) 9 mg/dL (7-20) Creatinine 0.7 mg/dL (0.6-1.0) 0.7 mg/dL (0.6-1.0) Estimated GFR (Cockcroft-Gault) 82.3 82.3 BUN/Creatinine Ratio 17 (6-20) Glucose Level 137 mg/dL (70-99) 204 mg/dL (70-99) Lactic Acid Level 1.4 mmol/L (0.4-2.0) Calcium Level 8.7 mg/dL (8.5-10.1) 8.8 mg/dL (8.5-10.1) Phosphorus Level 4.1 mg/dL (2.6-4.7) Magnesium Level 1.5 mg/dL (1.8-2.4) Total Bilirubin 0.6 mg/dL (0.2-1.0) Aspartate Amino Transf (AST/SGOT) 23 U/L (15-37) Alanine Aminotransferase (ALT/SGPT) 28 U/L (14-59) Alkaline Phosphatase 59 U/L (46-116) Troponin I Quantitative < 0.017 ng/mL (0.000-0.055) < 0.017 ng/mL (0.000-0.055) QH-Qto-M-Type Natriuretic Peptide 168 pg/mL (0-124) Total Protein 6.9 g/dL (6.4-8.2) Albumin 3.6 g/dL (3.4-5.0) Albumin/Globulin Ratio 1.1 (1.0-1.7) Urine Collection Type Unknown Urine Color Yellow Urine Clarity Clear Urine pH 5.5 (<5.0-8.0) Urine Specific [place] 1.015 (1.000-1.030) Urine Protein Negative mg/dL (NEG-TRACE) Urine Glucose (UA) Negative mg/dL (NEG) Urine Ketones (Stick) Negative mg/dL (NEG) Urine Blood Negative (NEG) Urine Nitrite Negative (NEG) Urine Bilirubin Negative (NEG) Urine Urobilinogen Dipstick 1.0 mg/dL (0.2 mg/dL) Urine Leukocyte Esterase Negative (NEG) Urine RBC 0 /HPF (0-2) Urine WBC 0 /HPF (0-4) Urine Squamous Epithelial Cells Few /LPF Urine Bacteria 0 /HPF (0-FEW) Urine Mucus Slight /LPF Test 08/08/21 05:55 08/08/21 08:09 08/08/21 11:31 Glucose (Fingerstick) 214 mg/dL (70-99) 182 mg/dL (70-99) 247 mg/dL (70-99) Laboratory Tests Test 08/07/21 19:30 08/07/21 20:30 08/07/21 21:20 08/08/21 05:50 Influenza Type A Antigen Negative (NEGATIVE) Influenza Type B Antigen Negative (NEGATIVE) SARS-CoV-2 RNA (SPENCER) Invalid (Negative) SARS-CoV-2 Antigen (Rapid) Negative (NEGATIVE) White Blood Count 5.6 x10^3/uL (4.0-11.0) 4.6 x10^3/uL (4.0-11.0) Red Blood Count 3.61 x10^6/uL (3.50-5.40) 3.65 x10^6/uL (3.50-5.40) Hemoglobin 11.5 g/dL (12.0-15.5) 11.5 g/dL (12.0-15.5) Hematocrit 33.9 % (36.0-47.0) 34.4 % (36.0-47.0) Mean Corpuscular Volume 94 fL (79-100) 94 fL (79-100) Mean Corpuscular Hemoglobin 32 pg (25-35) 32 pg (25-35) Mean Corpuscular Hemoglobin Concent 34 g/dL (31-37) 34 g/dL (31-37) Red Cell Distribution Width 14.7 % (11.5-14.5) 14.8 % (11.5-14.5) Platelet Count 148 x10^3/uL (140-400) 145 x10^3/uL (140-400) Neutrophils (%) (Auto) 64 % (31-73) 57 % (31-73) Lymphocytes (%) (Auto) 28 % (24-48) 35 % (24-48) Monocytes (%) (Auto) 6 % (0-9) 6 % (0-9) Eosinophils (%) (Auto) 1 % (0-3) 2 % (0-3) Basophils (%) (Auto) 1 % (0-3) 0 % (0-3) Neutrophils # (Auto) 3.6 x10^3/uL (1.8-7.7) 2.6 x10^3/uL (1.8-7.7) Lymphocytes # (Auto) 1.6 x10^3/uL (1.0-4.8) 1.6 x10^3/uL (1.0-4.8) Monocytes # (Auto) 0.3 x10^3/uL (0.0-1.1) 0.3 x10^3/uL (0.0-1.1) Eosinophils # (Auto) 0.1 x10^3/uL (0.0-0.7) 0.1 x10^3/uL (0.0-0.7) Basophils # (Auto) 0.1 x10^3/uL (0.0-0.2) 0.0 x10^3/uL (0.0-0.2) Prothrombin Time 12.8 SEC (11.7-14.0) Prothromb Time International Ratio 1.0 (0.8-1.1) Sodium Level 139 mmol/L (136-145) 139 mmol/L (136-145) Potassium Level 4.0 mmol/L (3.5-5.1) 3.7 mmol/L (3.5-5.1) Chloride Level 101 mmol/L (98-107) 101 mmol/L (98-107) Carbon Dioxide Level 30 mmol/L (21-32) 32 mmol/L (21-32) Anion Gap 8 (6-14) 6 (6-14) Blood Urea Nitrogen 12 mg/dL (7-20) 9 mg/dL (7-20) Creatinine 0.7 mg/dL (0.6-1.0) 0.7 mg/dL (0.6-1.0) Estimated GFR (Cockcroft-Gault) 82.3 82.3 BUN/Creatinine Ratio 17 (6-20) Glucose Level 137 mg/dL (70-99) 204 mg/dL (70-99) Lactic Acid Level 1.4 mmol/L (0.4-2.0) Calcium Level 8.7 mg/dL (8.5-10.1) 8.8 mg/dL (8.5-10.1) Phosphorus Level 4.1 mg/dL (2.6-4.7) Magnesium Level 1.5 mg/dL (1.8-2.4) Total Bilirubin 0.6 mg/dL (0.2-1.0) Aspartate Amino Transf (AST/SGOT) 23 U/L (15-37) Alanine Aminotransferase (ALT/SGPT) 28 U/L (14-59) Alkaline Phosphatase 59 U/L (46-116) Troponin I Quantitative < 0.017 ng/mL (0.000-0.055) < 0.017 ng/mL (0.000-0.055) HX-Urw-Y-Type Natriuretic Peptide 168 pg/mL (0-124) Total Protein 6.9 g/dL (6.4-8.2) Albumin 3.6 g/dL (3.4-5.0) Albumin/Globulin Ratio 1.1 (1.0-1.7) Urine Collection Type Unknown Urine Color Yellow Urine Clarity Clear Urine pH 5.5 (<5.0-8.0) Urine Specific [place] 1.015 (1.000-1.030) Urine Protein Negative mg/dL (NEG-TRACE) Urine Glucose (UA) Negative mg/dL (NEG) Urine Ketones (Stick) Negative mg/dL (NEG) Urine Blood Negative (NEG) Urine Nitrite Negative (NEG) Urine Bilirubin Negative (NEG) Urine Urobilinogen Dipstick 1.0 mg/dL (0.2 mg/dL) Urine Leukocyte Esterase Negative (NEG) Urine RBC 0 /HPF (0-2) Urine WBC 0 /HPF (0-4) Urine Squamous Epithelial Cells Few /LPF Urine Bacteria 0 /HPF (0-FEW) Urine Mucus Slight /LPF Test 08/08/21 05:55 08/08/21 08:09 08/08/21 11:31 Glucose (Fingerstick) 214 mg/dL (70-99) 182 mg/dL (70-99) 247 mg/dL (70-99) Medications Active Scripts Medications Dose Route/Sig Max Daily Dose Days Date Category FENTANYL 75mcg/hr (Fentanyl) 1 Each Patch.td72 1 Patch TD Q72H 08/08/21 Reported Tizanidine Hcl 4 Mg Tablet 4 Mg PO TID PRN 08/08/21 Reported Dicyclomine Hcl 10 Mg Capsule 10 Mg PO BID 08/08/21 Reported Hydrocodone-Apap 10-325 (Hydrocodone Bit/Acetaminophen) 1 Tab Tablet 1 Tab PO PRN Q4HRS PRN 08/08/21 Reported Klor-Con 10 (Potassium Chloride) 10 Meq Tablet.er 10 Meq PO DAILY 08/08/21 Reported Escitalopram Oxalate 10 Mg Tablet 10 Mg PO DAILY 08/08/21 Reported Ibuprofen 800 Mg Tablet 800 Mg PO PRN Q6HRS PRN 08/08/21 Reported Pepcid (Famotidine) 40 Mg Tablet 40 Mg PO HS 08/08/21 Reported Omeprazole 40 Mg Capsule. 1 Cap PO DAILY 07/02/20 Reported Carvedilol (Carvedilol) 6.25 Mg Tablet 6.25 Mg PO BIDWMEALS 07/02/20 Reported [Diclofenac Sodium] 100 GM Gel..gram. 1 Matthew TP BID 7 03/26/20 Rx Atorvastatin Calcium 40 Mg Tablet 40 Mg PO HS 07/04/19 Reported Clopidogrel (Clopidogrel Bisulfate) 75 Mg Tablet 75 Mg PO DAILY 07/04/19 Reported Montelukast Sodium Tablet (Montelukast Sodium) 10 Mg Tablet 10 Mg PO HS 07/04/19 Reported Lasix (Furosemide) 40 Mg Tablet 40 Mg PO DAILY PRN 07/04/19 Reported Metformin Hcl 500 Mg Tablet 1,000 Mg PO BID 07/04/19 Reported Impression . Full note dictated Acute exacerbation of COPD BP SARS-CoV-2 testing See orders MIO MARTINEZ MD Aug 08, 2021 13:56
[2021-08-08] MEDS: CARVEDILOL 6.25 MG TABLET. PO SCH (17:26)
[2021-08-08] MEDS: metFORMIN 500 MG TABLET PO SCH (17:26)
[2021-08-08] MEDS: ENOXAPARIN 40 MG/0.4 ML SYRINGE. SQ SCH (21:36)
[2021-08-08] MEDS: MONTELUKAST SODIUM 10 MG TABLET. PO SCH (21:36)
[2021-08-08] MEDS: methylPREDNISolone SOD SUCC PF 125 MG/2 ML VIAL. IV SCH (21:37)
[2021-08-08] MEDS: DICYCLOMINE HCL 10 MG CAPSULE PO SCH (21:38)
[2021-08-08] MEDS: ATORVASTATIN CALCIUM 40 MG TABLET. PO SCH (21:38)
[2021-08-08] MEDS: DICLOFENAC SODIUM 1% TOPICAL GEL 100GM TUBE. TP SCH (21:38)
--- NOTE | 2021-08-08 21:57 | CONS ---
DATE OF CONSULTATION: 08/08/2021 ATTENDING PHYSICIAN: Dr. Josh Burciaga. REASON FOR CONSULTATION: The patient was seen in pulmonary consultation at the request of Dr. Burciaga for increasing shortness of breath. HISTORY OF PRESENT ILLNESS: The patient is a 71-year-old with a history of tobacco use, quit three to four years ago and has not been diagnosed with COPD, presented with increasing shortness of breath and some dizziness. She felt like she was going to pass out. She also has some chest discomfort. She was seen in the emergency room, underwent some diagnostic studies. I was asked to see her in consultation. She had a CT head, which revealed no acute findings. She had a CT angiogram with no evidence of pulmonary emboli. The lung parenchyma revealed no suspicious masses. No airspace disease. The patient was wheezing yesterday. 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 She normally uses metered-dosed inhaler, but financially, she could not afford to obtain her metered-dosed inhalers. She states around this time of year, she normally has some difficulty with her breathing getting worse. She is currently not vaccinated for COVID-19. She came in with an O2 saturation of 88%. She underwent testing, her nucleic amplification test was invalid. PAST MEDICAL HISTORY: Tobacco dependence in remission, quit three to four years ago. Suspect COPD, unknown FEV1. Type 2 diabetes, hyperlipidemia, hypertension, chronic neck pain. She has had previous breast cancer, coronary artery disease with previous stent placement. PAST SURGICAL HISTORY: Breast reduction, cardiac stenting. ALLERGIES: No known drug allergies. FAMILY HISTORY: Noncontributory. SOCIAL HISTORY: She is former smoker, lives on her own. REVIEW OF SYSTEMS: CONSTITUTIONAL: No fever or chills. EYES: No change in visual acuity. HENT: No nasal congestion, sore throat. PULMONARY: As indicated above. CARDIOVASCULAR: As indicated above. GASTROINTESTINAL: No nausea, vomiting, diarrhea. GENITOURINARY: No dysuria or frequency. MUSCULOSKELETAL: No localized muscle aches, joint pain. SKIN: No new rashes. NEUROLOGIC: No headaches, diplopia or blurred vision. LABORATORY DATA: Reviewed as indicated above. White count was normal. Hemoglobin and hematocrit were noted. Electrolytes were noted. Chest x-ray and CT as indicated above. IMPRESSION: 1. Acute exacerbation of chronic obstructive pulmonary disease. 2. Acute hypoxemic respiratory failure secondary to above. 3. Hypertensive urgency. 4. History of breast cancer. 5. Type 2 diabetes. 6. Tobacco dependence, in remission. PLAN: 1. Repeat SARS-CoV-2 testing. 2. Continue current support with steroids and nebulized treatments. 3. Continue home meds. 4. Management of hypertension to PCP. 5. The patient will greatly benefit from a long-acting anticholinergic bronchodilator upon discharge. I do appreciate the privilege in sharing in the patient's care. CHANDAN/BIRGIT DR: Nadir TID: [id number]
[2021-08-09 03:00] VITALS: BP 169/68
[2021-08-09] MEDS: tiZANidine 4 MG TABLET. PO PRN ×2 (03:58→20:43)
[2021-08-09] MEDS: HYDROcodone/APAP 10/325 1 TAB TABLET PO PRN ×4 (03:58→20:42)
[2021-08-09 06:29] LABS: BASO % 0 % (0-3); EOS % 0 % (0-3); HEMATOCRIT 33.4 % (36.0-47.0); HEMOGLOBIN 11.1 g/dL (12.0-15.5); LYMPH # 0.6 x10^3/uL (1.0-4.8); LYMPH % 13 % (24-48); MEAN CORPUSCULAR HEMOGLOBIN 31 pg (25-35); MEAN CORPUSCULAR HGB CONC 33 g/dL (31-37); MEAN CORPUSCULAR VOLUME 95 fL (79-100); MONO % 0 % (0-9); NEUT % 87 % (31-73); PLATELET COUNT 135 x10^3/uL (140-400); RED BLOOD COUNT 3.53 x10^6/uL (3.50-5.40); RED CELL DISTRIBUTION WIDTH 14.6 % (11.5-14.5); WHITE BLOOD COUNT 4.6 x10^3/uL (4.0-11.0)
[2021-08-09 06:44] LABS: CALCIUM 8.3 mg/dL (8.5-10.1); GFR 54.5; MAGNESIUM 1.7 mg/dL (1.8-2.4); PHOSPHORUS 2.2 mg/dL (2.6-4.7); POTASSIUM 4.2 mmol/L (3.5-5.1)
[2021-08-09 07:00] VITALS: BP 114/51
[2021-08-09] MEDS ORDERED: TIOT18CA IH (07:34)
[2021-08-09] MEDS: PANTOPRAZOLE 40 MG TABLET.DR. PO SCH (07:49)
[2021-08-09] MEDS: DICYCLOMINE HCL 10 MG CAPSULE PO SCH ×2 (08:30→20:42)
[2021-08-09] MEDS: metFORMIN 500 MG TABLET PO SCH ×2 (08:32→17:17)
[2021-08-09] MEDS: CARVEDILOL 6.25 MG TABLET. PO SCH ×2 (08:34→17:17)
[2021-08-09] MEDS: CLOPIDOGREL BISULFATE 75 MG TABLET PO SCH (08:36)
[2021-08-09] MEDS: DICLOFENAC SODIUM 1% TOPICAL GEL 100GM TUBE. TP SCH ×2 (08:38→20:45)
[2021-08-09] MEDS: INSULIN LISPRO 300 UNITS/3 ML VIAL. SQ SCH ×3 (08:40→17:28)
[2021-08-09] MEDS: methylPREDNISolone SOD SUCC PF 125 MG/2 ML VIAL. IV SCH ×2 (08:42→20:44)
[2021-08-09] MEDS: FLUTICASONE 50MCG/NASAL SPRAY 16GM BOTTLE. NS SCH (08:43)
--- NOTE | 2021-08-09 08:58 | PDOC ---
PULMONARY PROGRESS NOTES DATE: 08/09/21 TIME: 08:58 Subjective Patient feels slightly better, no increasing shortness of air. Vitals Vital Signs Date Time Temp Pulse Resp B/P (MAP) Pulse Ox O2 Delivery O2 Flow Rate FiO2 08/09/21 08:34 88 114/51 08/09/21 07:00 97.6 16 92 Room Air 97.6 08/09/21 03:00 3.0 ROS: No Nausea, No Chest Pain, No Abdominal Pain, No Increase Cough Lungs: Wheezing Cardiovascular: S1, S2 Abdomen: Soft Neuro Exam: Alert Extremities: No Edema Skin: Warm Labs Laboratory Tests Test 08/07/21 19:30 08/07/21 20:30 08/07/21 21:20 08/08/21 05:50 Coronavirus (COVID-19)(PCR) Negative (NEGATIVE) Influenza Type A Antigen Negative (NEGATIVE) Influenza Type B Antigen Negative (NEGATIVE) SARS-CoV-2 RNA (SPENCER) Invalid (Negative) SARS-CoV-2 Antigen (Rapid) Negative (NEGATIVE) White Blood Count 5.6 x10^3/uL (4.0-11.0) 4.6 x10^3/uL (4.0-11.0) Red Blood Count 3.61 x10^6/uL (3.50-5.40) 3.65 x10^6/uL (3.50-5.40) Hemoglobin 11.5 g/dL (12.0-15.5) 11.5 g/dL (12.0-15.5) Hematocrit 33.9 % (36.0-47.0) 34.4 % (36.0-47.0) Mean Corpuscular Volume 94 fL (79-100) 94 fL (79-100) Mean Corpuscular Hemoglobin 32 pg (25-35) 32 pg (25-35) Mean Corpuscular Hemoglobin Concent 34 g/dL (31-37) 34 g/dL (31-37) Red Cell Distribution Width 14.7 % (11.5-14.5) 14.8 % (11.5-14.5) Platelet Count 148 x10^3/uL (140-400) 145 x10^3/uL (140-400) Neutrophils (%) (Auto) 64 % (31-73) 57 % (31-73) Lymphocytes (%) (Auto) 28 % (24-48) 35 % (24-48) Monocytes (%) (Auto) 6 % (0-9) 6 % (0-9) Eosinophils (%) (Auto) 1 % (0-3) 2 % (0-3) Basophils (%) (Auto) 1 % (0-3) 0 % (0-3) Neutrophils # (Auto) 3.6 x10^3/uL (1.8-7.7) 2.6 x10^3/uL (1.8-7.7) Lymphocytes # (Auto) 1.6 x10^3/uL (1.0-4.8) 1.6 x10^3/uL (1.0-4.8) Monocytes # (Auto) 0.3 x10^3/uL (0.0-1.1) 0.3 x10^3/uL (0.0-1.1) Eosinophils # (Auto) 0.1 x10^3/uL (0.0-0.7) 0.1 x10^3/uL (0.0-0.7) Basophils # (Auto) 0.1 x10^3/uL (0.0-0.2) 0.0 x10^3/uL (0.0-0.2) Prothrombin Time 12.8 SEC (11.7-14.0) Prothromb Time International Ratio 1.0 (0.8-1.1) Sodium Level 139 mmol/L (136-145) 139 mmol/L (136-145) Potassium Level 4.0 mmol/L (3.5-5.1) 3.7 mmol/L (3.5-5.1) Chloride Level 101 mmol/L (98-107) 101 mmol/L (98-107) Carbon Dioxide Level 30 mmol/L (21-32) 32 mmol/L (21-32) Anion Gap 8 (6-14) 6 (6-14) Blood Urea Nitrogen 12 mg/dL (7-20) 9 mg/dL (7-20) Creatinine 0.7 mg/dL (0.6-1.0) 0.7 mg/dL (0.6-1.0) Estimated GFR (Cockcroft-Gault) 82.3 82.3 BUN/Creatinine Ratio 17 (6-20) Glucose Level 137 mg/dL (70-99) 204 mg/dL (70-99) Lactic Acid Level 1.4 mmol/L (0.4-2.0) Calcium Level 8.7 mg/dL (8.5-10.1) 8.8 mg/dL (8.5-10.1) Phosphorus Level 4.1 mg/dL (2.6-4.7) Magnesium Level 1.5 mg/dL (1.8-2.4) Total Bilirubin 0.6 mg/dL (0.2-1.0) Aspartate Amino Transf (AST/SGOT) 23 U/L (15-37) Alanine Aminotransferase (ALT/SGPT) 28 U/L (14-59) Alkaline Phosphatase 59 U/L (46-116) Troponin I Quantitative < 0.017 ng/mL (0.000-0.055) < 0.017 ng/mL (0.000-0.055) YA-Yre-K-Type Natriuretic Peptide 168 pg/mL (0-124) Total Protein 6.9 g/dL (6.4-8.2) Albumin 3.6 g/dL (3.4-5.0) Albumin/Globulin Ratio 1.1 (1.0-1.7) Urine Collection Type Unknown Urine Color Yellow Urine Clarity Clear Urine pH 5.5 (<5.0-8.0) Urine Specific [place] 1.015 (1.000-1.030) Urine Protein Negative mg/dL (NEG-TRACE) Urine Glucose (UA) Negative mg/dL (NEG) Urine Ketones (Stick) Negative mg/dL (NEG) Urine Blood Negative (NEG) Urine Nitrite Negative (NEG) Urine Bilirubin Negative (NEG) Urine Urobilinogen Dipstick 1.0 mg/dL (0.2 mg/dL) Urine Leukocyte Esterase Negative (NEG) Urine RBC 0 /HPF (0-2) Urine WBC 0 /HPF (0-4) Urine Squamous Epithelial Cells Few /LPF Urine Bacteria 0 /HPF (0-FEW) Urine Mucus Slight /LPF Test 08/08/21 05:55 08/08/21 08:09 08/08/21 11:31 08/08/21 16:43 Glucose (Fingerstick) 214 mg/dL (70-99) 182 mg/dL (70-99) 247 mg/dL (70-99) 241 mg/dL (70-99) Test 08/08/21 19:14 08/09/21 06:18 08/09/21 07:08 Glucose (Fingerstick) 203 mg/dL (70-99) 386 mg/dL (70-99) White Blood Count 4.6 x10^3/uL (4.0-11.0) Red Blood Count 3.53 x10^6/uL (3.50-5.40) Hemoglobin 11.1 g/dL (12.0-15.5) Hematocrit 33.4 % (36.0-47.0) Mean Corpuscular Volume 95 fL (79-100) Mean Corpuscular Hemoglobin 31 pg (25-35) Mean Corpuscular Hemoglobin Concent 33 g/dL (31-37) Red Cell Distribution Width 14.6 % (11.5-14.5) Platelet Count 135 x10^3/uL (140-400) Neutrophils (%) (Auto) 87 % (31-73) Lymphocytes (%) (Auto) 13 % (24-48) Monocytes (%) (Auto) 0 % (0-9) Eosinophils (%) (Auto) 0 % (0-3) Basophils (%) (Auto) 0 % (0-3) Neutrophils # (Auto) 4.0 x10^3/uL (1.8-7.7) Lymphocytes # (Auto) 0.6 x10^3/uL (1.0-4.8) Monocytes # (Auto) 0.0 x10^3/uL (0.0-1.1) Eosinophils # (Auto) 0.0 x10^3/uL (0.0-0.7) Basophils # (Auto) 0.0 x10^3/uL (0.0-0.2) Sodium Level 135 mmol/L (136-145) Potassium Level 4.2 mmol/L (3.5-5.1) Chloride Level 98 mmol/L (98-107) Carbon Dioxide Level 28 mmol/L (21-32) Anion Gap 9 (6-14) Blood Urea Nitrogen 12 mg/dL (7-20) Creatinine 1.0 mg/dL (0.6-1.0) Estimated GFR (Cockcroft-Gault) 54.5 Glucose Level 373 mg/dL (70-99) Calcium Level 8.3 mg/dL (8.5-10.1) Phosphorus Level 2.2 mg/dL (2.6-4.7) Magnesium Level 1.7 mg/dL (1.8-2.4) Laboratory Tests Test 08/08/21 11:31 08/08/21 16:43 08/08/21 19:14 08/09/21 06:18 Glucose (Fingerstick) 247 mg/dL (70-99) 241 mg/dL (70-99) 203 mg/dL (70-99) White Blood Count 4.6 x10^3/uL (4.0-11.0) Red Blood Count 3.53 x10^6/uL (3.50-5.40) Hemoglobin 11.1 g/dL (12.0-15.5) Hematocrit 33.4 % (36.0-47.0) Mean Corpuscular Volume 95 fL (79-100) Mean Corpuscular Hemoglobin 31 pg (25-35) Mean Corpuscular Hemoglobin Concent 33 g/dL (31-37) Red Cell Distribution Width 14.6 % (11.5-14.5) Platelet Count 135 x10^3/uL (140-400) Neutrophils (%) (Auto) 87 % (31-73) Lymphocytes (%) (Auto) 13 % (24-48) Monocytes (%) (Auto) 0 % (0-9) Eosinophils (%) (Auto) 0 % (0-3) Basophils (%) (Auto) 0 % (0-3) Neutrophils # (Auto) 4.0 x10^3/uL (1.8-7.7) Lymphocytes # (Auto) 0.6 x10^3/uL (1.0-4.8) Monocytes # (Auto) 0.0 x10^3/uL (0.0-1.1) Eosinophils # (Auto) 0.0 x10^3/uL (0.0-0.7) Basophils # (Auto) 0.0 x10^3/uL (0.0-0.2) Sodium Level 135 mmol/L (136-145) Potassium Level 4.2 mmol/L (3.5-5.1) Chloride Level 98 mmol/L (98-107) Carbon Dioxide Level 28 mmol/L (21-32) Anion Gap 9 (6-14) Blood Urea Nitrogen 12 mg/dL (7-20) Creatinine 1.0 mg/dL (0.6-1.0) Estimated GFR (Cockcroft-Gault) 54.5 Glucose Level 373 mg/dL (70-99) Calcium Level 8.3 mg/dL (8.5-10.1) Phosphorus Level 2.2 mg/dL (2.6-4.7) Magnesium Level 1.7 mg/dL (1.8-2.4) Test 08/09/21 07:08 Glucose (Fingerstick) 386 mg/dL (70-99) Medications Active Scripts Medications Dose Route/Sig Max Daily Dose Days Date Category FENTANYL 75mcg/hr (Fentanyl) 1 Each Patch.td72 1 Patch TD Q72H 08/08/21 Reported Tizanidine Hcl 4 Mg Tablet 4 Mg PO TID PRN 08/08/21 Reported Dicyclomine Hcl 10 Mg Capsule 10 Mg PO BID 08/08/21 Reported Hydrocodone-Apap 10-325 (Hydrocodone Bit/Acetaminophen) 1 Tab Tablet 1 Tab PO PRN Q4HRS PRN 08/08/21 Reported Klor-Con 10 (Potassium Chloride) 10 Meq Tablet.er 10 Meq PO DAILY 08/08/21 Reported Escitalopram Oxalate 10 Mg Tablet 10 Mg PO DAILY 08/08/21 Reported Ibuprofen 800 Mg Tablet 800 Mg PO PRN Q6HRS PRN 08/08/21 Reported Pepcid (Famotidine) 40 Mg Tablet 40 Mg PO HS 08/08/21 Reported Omeprazole 40 Mg Capsule.dr 1 Cap PO DAILY 07/02/20 Reported Carvedilol (Carvedilol) 6.25 Mg Tablet 6.25 Mg PO BIDWMEALS 07/02/20 Reported [Diclofenac Sodium] 100 GM Gel..gram. 1 Matthew TP BID 7 03/26/20 Rx Atorvastatin Calcium 40 Mg Tablet 40 Mg PO HS 07/04/19 Reported Clopidogrel (Clopidogrel Bisulfate) 75 Mg Tablet 75 Mg PO DAILY 07/04/19 Reported Montelukast Sodium Tablet (Montelukast Sodium) 10 Mg Tablet 10 Mg PO HS 07/04/19 Reported Lasix (Furosemide) 40 Mg Tablet 40 Mg PO DAILY PRN 07/04/19 Reported Metformin Hcl 500 Mg Tablet 1,000 Mg PO BID 07/04/19 Reported Impression . IMPRESSION: 1. Acute exacerbation of chronic obstructive pulmonary disease. 2. Acute hypoxemic respiratory failure secondary to above. 3. Hypertensive urgency. 4. History of breast cancer. 5. Type 2 diabetes. 6. Tobacco dependence, in remission. 7. SARS-CoV-2 negative PCR Plan . Updated 08/09 Repeat SARS-CoV-2 negative Continue steroids and nebulized treatments Once discharge maintenance anticholinergic metered-dose and inhaler May need PT OT 08/08 1. Repeat SARS-CoV-2 testing. 2. Continue current support with steroids and nebulized treatments. 3. Continue home meds. 4. Management of hypertension to PCP. 5. The patient will greatly benefit from a long-acting anticholinergic bronchodilator upon discharge. I do appreciate the privilege in sharing in the patient's care. MIO MARTINEZ MD Aug 09, 2021 08:58
[2021-08-09] MEDS ORDERED: ENOXAPARIN 30 MG/0.3 ML SYRINGE. SQ SCH (09:00)
[2021-08-09] MEDS: CITALOPRAM 20 MG TABLET. PO SCH (09:04)
[2021-08-09 10:51] VITALS: BP 140/64
--- NOTE | 2021-08-09 13:48 | DISCH ---
DISCHARGE INSTRUCTIONS Condition on Discharge Condition on Discharge: Stable Activity After Discharge Activity Instructions for Disc: Activity as tolerated Exercise Instruction after Dis: Walk 30 min, 3 x per week Driving Instructions after Dis: Other, see below Weight Bearing Status after Di: No restrictions Diet after Discharge Diet after Discharge: Diabetic No Calorie Level Diet Texture: Regular Liquid Texture: Thin Liquid Swallowing Supervision: None needed Checks after Discharge Checks after discharge: Check blood press - daily, Check blood sugar, ac/hs Follow-Up Follow up with: PCP within 2 weeks of discharge Follow Up With: Pulmonology as needed Treatment/Equipment after DC Adaptive Equipment Issued: None CAIN JEROME MD Aug 09, 2021 13:48
[2021-08-09] MEDS ORDERED: PRED20TA PO (13:49)
[2021-08-09 14:50] VITALS: BP 140/82
[2021-08-09 19:00] VITALS: BP 149/66
[2021-08-09] MEDS: MONTELUKAST SODIUM 10 MG TABLET. PO SCH (20:42)
[2021-08-09] MEDS: ATORVASTATIN CALCIUM 40 MG TABLET. PO SCH (20:43)
[2021-08-09] MEDS: ENOXAPARIN 40 MG/0.4 ML SYRINGE. SQ SCH (20:45)
[2021-08-09 23:01] VITALS: BP 152/78
[2021-08-10] MEDS: HYDROcodone/APAP 10/325 1 TAB TABLET PO PRN ×3 (02:42→15:01)
[2021-08-10 03:28] VITALS: BP 136/62
[2021-08-10 06:50] VITALS: BP 119/63
[2021-08-10 07:21] LABS: BASO % 0 % (0-3); CALCIUM 8.6 mg/dL (8.5-10.1); CREATININE 1.1 mg/dL (0.6-1.0); EOS % 0 % (0-3); GFR 48.8; HEMATOCRIT 34.7 % (36.0-47.0); HEMOGLOBIN 11.2 g/dL (12.0-15.5); LYMPH # 0.7 x10^3/uL (1.0-4.8); LYMPH % 8 % (24-48); MAGNESIUM 1.6 mg/dL (1.8-2.4); MEAN CORPUSCULAR HEMOGLOBIN 31 pg (25-35); MEAN CORPUSCULAR HGB CONC 32 g/dL (31-37); MEAN CORPUSCULAR VOLUME 97 fL (79-100); MONO # 0.2 x10^3/uL (0.0-1.1); MONO % 2 % (0-9); NEUT # 7.5 x10^3/uL (1.8-7.7); NEUT % 90 % (31-73); PLATELET COUNT 135 x10^3/uL (140-400); POTASSIUM 4.3 mmol/L (3.5-5.1); RED BLOOD COUNT 3.58 x10^6/uL (3.50-5.40); RED CELL DISTRIBUTION WIDTH 14.7 % (11.5-14.5); WHITE BLOOD COUNT 8.4 x10^3/uL (4.0-11.0)
[2021-08-10] MEDS: PANTOPRAZOLE 40 MG TABLET.DR. PO SCH (07:49)
[2021-08-10] MEDS: metFORMIN 500 MG TABLET PO SCH ×2 (08:08→17:19)
[2021-08-10] MEDS: CARVEDILOL 6.25 MG TABLET. PO SCH ×2 (08:08→17:19)
[2021-08-10] MEDS: INSULIN LISPRO 300 UNITS/3 ML VIAL. SQ SCH ×3 (08:09→17:20)
[2021-08-10] MEDS ORDERED: MAGNESIUM SULFATE 2GM 50 ML IV ONE (08:30)
[2021-08-10] MEDS: CITALOPRAM 20 MG TABLET. PO SCH (08:47)
[2021-08-10] MEDS: CLOPIDOGREL BISULFATE 75 MG TABLET PO SCH (08:47)
[2021-08-10] MEDS: DICYCLOMINE HCL 10 MG CAPSULE PO SCH (08:48)
[2021-08-10] MEDS: FLUTICASONE 50MCG/NASAL SPRAY 16GM BOTTLE. NS SCH (08:49)
[2021-08-10] MEDS: DICLOFENAC SODIUM 1% TOPICAL GEL 100GM TUBE. TP SCH (08:49)
[2021-08-10] MEDS: methylPREDNISolone SOD SUCC PF 125 MG/2 ML VIAL. IV SCH (08:50)
--- NOTE | 2021-08-10 09:18 | PDOC ---
PULMONARY PROGRESS NOTES DATE: 08/10/21 TIME: 09:18 Subjective Still feels short of air at times, wheezing Vitals Vital Signs Date Time Temp Pulse Resp B/P (MAP) Pulse Ox O2 Delivery O2 Flow Rate FiO2 08/10/21 08:49 Room Air 08/10/21 08:48 87 119/63 08/10/21 06:50 98.1 18 93 98.1 08/09/21 10:15 3.0 ROS: No Nausea, No Chest Pain, No Abdominal Pain, No Increase Cough Lungs: Wheezing Cardiovascular: S1, S2 Abdomen: Soft Neuro Exam: Alert Extremities: No Edema Skin: Warm Labs Laboratory Tests Test 08/08/21 11:31 08/08/21 16:43 08/08/21 19:14 08/09/21 06:18 Glucose (Fingerstick) 247 mg/dL (70-99) 241 mg/dL (70-99) 203 mg/dL (70-99) White Blood Count 4.6 x10^3/uL (4.0-11.0) Red Blood Count 3.53 x10^6/uL (3.50-5.40) Hemoglobin 11.1 g/dL (12.0-15.5) Hematocrit 33.4 % (36.0-47.0) Mean Corpuscular Volume 95 fL (79-100) Mean Corpuscular Hemoglobin 31 pg (25-35) Mean Corpuscular Hemoglobin Concent 33 g/dL (31-37) Red Cell Distribution Width 14.6 % (11.5-14.5) Platelet Count 135 x10^3/uL (140-400) Neutrophils (%) (Auto) 87 % (31-73) Lymphocytes (%) (Auto) 13 % (24-48) Monocytes (%) (Auto) 0 % (0-9) Eosinophils (%) (Auto) 0 % (0-3) Basophils (%) (Auto) 0 % (0-3) Neutrophils # (Auto) 4.0 x10^3/uL (1.8-7.7) Lymphocytes # (Auto) 0.6 x10^3/uL (1.0-4.8) Monocytes # (Auto) 0.0 x10^3/uL (0.0-1.1) Eosinophils # (Auto) 0.0 x10^3/uL (0.0-0.7) Basophils # (Auto) 0.0 x10^3/uL (0.0-0.2) Sodium Level 135 mmol/L (136-145) Potassium Level 4.2 mmol/L (3.5-5.1) Chloride Level 98 mmol/L (98-107) Carbon Dioxide Level 28 mmol/L (21-32) Anion Gap 9 (6-14) Blood Urea Nitrogen 12 mg/dL (7-20) Creatinine 1.0 mg/dL (0.6-1.0) Estimated GFR (Cockcroft-Gault) 54.5 Glucose Level 373 mg/dL (70-99) Calcium Level 8.3 mg/dL (8.5-10.1) Phosphorus Level 2.2 mg/dL (2.6-4.7) Magnesium Level 1.7 mg/dL (1.8-2.4) Test 08/09/21 07:08 08/09/21 10:55 08/09/21 16:09 08/09/21 20:39 Glucose (Fingerstick) 386 mg/dL (70-99) 348 mg/dL (70-99) 363 mg/dL (70-99) 227 mg/dL (70-99) Test 08/10/21 06:45 08/10/21 06:55 White Blood Count 8.4 x10^3/uL (4.0-11.0) Red Blood Count 3.58 x10^6/uL (3.50-5.40) Hemoglobin 11.2 g/dL (12.0-15.5) Hematocrit 34.7 % (36.0-47.0) Mean Corpuscular Volume 97 fL (79-100) Mean Corpuscular Hemoglobin 31 pg (25-35) Mean Corpuscular Hemoglobin Concent 32 g/dL (31-37) Red Cell Distribution Width 14.7 % (11.5-14.5) Platelet Count 135 x10^3/uL (140-400) Neutrophils (%) (Auto) 90 % (31-73) Lymphocytes (%) (Auto) 8 % (24-48) Monocytes (%) (Auto) 2 % (0-9) Eosinophils (%) (Auto) 0 % (0-3) Basophils (%) (Auto) 0 % (0-3) Neutrophils # (Auto) 7.5 x10^3/uL (1.8-7.7) Lymphocytes # (Auto) 0.7 x10^3/uL (1.0-4.8) Monocytes # (Auto) 0.2 x10^3/uL (0.0-1.1) Eosinophils # (Auto) 0.0 x10^3/uL (0.0-0.7) Basophils # (Auto) 0.0 x10^3/uL (0.0-0.2) Sodium Level 136 mmol/L (136-145) Potassium Level 4.3 mmol/L (3.5-5.1) Chloride Level 98 mmol/L (98-107) Carbon Dioxide Level 28 mmol/L (21-32) Anion Gap 10 (6-14) Blood Urea Nitrogen 16 mg/dL (7-20) Creatinine 1.1 mg/dL (0.6-1.0) Estimated GFR (Cockcroft-Gault) 48.8 Glucose Level 368 mg/dL (70-99) Calcium Level 8.6 mg/dL (8.5-10.1) Magnesium Level 1.6 mg/dL (1.8-2.4) Glucose (Fingerstick) 357 mg/dL (70-99) Laboratory Tests Test 08/09/21 10:55 08/09/21 16:09 08/09/21 20:39 08/10/21 06:45 Glucose (Fingerstick) 348 mg/dL (70-99) 363 mg/dL (70-99) 227 mg/dL (70-99) White Blood Count 8.4 x10^3/uL (4.0-11.0) Red Blood Count 3.58 x10^6/uL (3.50-5.40) Hemoglobin 11.2 g/dL (12.0-15.5) Hematocrit 34.7 % (36.0-47.0) Mean Corpuscular Volume 97 fL (79-100) Mean Corpuscular Hemoglobin 31 pg (25-35) Mean Corpuscular Hemoglobin Concent 32 g/dL (31-37) Red Cell Distribution Width 14.7 % (11.5-14.5) Platelet Count 135 x10^3/uL (140-400) Neutrophils (%) (Auto) 90 % (31-73) Lymphocytes (%) (Auto) 8 % (24-48) Monocytes (%) (Auto) 2 % (0-9) Eosinophils (%) (Auto) 0 % (0-3) Basophils (%) (Auto) 0 % (0-3) Neutrophils # (Auto) 7.5 x10^3/uL (1.8-7.7) Lymphocytes # (Auto) 0.7 x10^3/uL (1.0-4.8) Monocytes # (Auto) 0.2 x10^3/uL (0.0-1.1) Eosinophils # (Auto) 0.0 x10^3/uL (0.0-0.7) Basophils # (Auto) 0.0 x10^3/uL (0.0-0.2) Sodium Level 136 mmol/L (136-145) Potassium Level 4.3 mmol/L (3.5-5.1) Chloride Level 98 mmol/L (98-107) Carbon Dioxide Level 28 mmol/L (21-32) Anion Gap 10 (6-14) Blood Urea Nitrogen 16 mg/dL (7-20) Creatinine 1.1 mg/dL (0.6-1.0) Estimated GFR (Cockcroft-Gault) 48.8 Glucose Level 368 mg/dL (70-99) Calcium Level 8.6 mg/dL (8.5-10.1) Magnesium Level 1.6 mg/dL (1.8-2.4) Test 08/10/21 06:55 Glucose (Fingerstick) 357 mg/dL (70-99) Medications Active Scripts Medications Dose Route/Sig Max Daily Dose Days Date Category FENTANYL 75mcg/hr (Fentanyl) 1 Each Patch.td72 1 Patch TD Q72H 08/08/21 Reported Tizanidine Hcl 4 Mg Tablet 4 Mg PO TID PRN 08/08/21 Reported Dicyclomine Hcl 10 Mg Capsule 10 Mg PO BID 08/08/21 Reported Hydrocodone-Apap 10-325 (Hydrocodone Bit/Acetaminophen) 1 Tab Tablet 1 Tab PO PRN Q4HRS PRN 08/08/21 Reported Klor-Con 10 (Potassium Chloride) 10 Meq Tablet.er 10 Meq PO DAILY 08/08/21 Reported Escitalopram Oxalate 10 Mg Tablet 10 Mg PO DAILY 08/08/21 Reported Ibuprofen 800 Mg Tablet 800 Mg PO PRN Q6HRS PRN 08/08/21 Reported Pepcid (Famotidine) 40 Mg Tablet 40 Mg PO HS 08/08/21 Reported Omeprazole 40 Mg Capsule.dr Wick Cap PO DAILY 07/02/20 Reported Carvedilol (Carvedilol) 6.25 Mg Tablet 6.25 Mg PO BIDWMEALS 07/02/20 Reported [Diclofenac Sodium] 100 GM Gel..gram. 1 Matthew TP BID 7 03/26/20 Rx Atorvastatin Calcium 40 Mg Tablet 40 Mg PO HS 07/04/19 Reported Clopidogrel (Clopidogrel Bisulfate) 75 Mg Tablet 75 Mg PO DAILY 07/04/19 Reported Montelukast Sodium Tablet (Montelukast Sodium) 10 Mg Tablet 10 Mg PO HS 07/04/19 Reported Lasix (Furosemide) 40 Mg Tablet 40 Mg PO DAILY PRN 07/04/19 Reported Metformin Hcl 500 Mg Tablet 1,000 Mg PO BID 07/04/19 Reported Impression . IMPRESSION: 1. Acute exacerbation of chronic obstructive pulmonary disease. 2. Acute hypoxemic respiratory failure secondary to above. 3. Hypertensive urgency. 4. History of breast cancer. 5. Type 2 diabetes. 6. Tobacco dependence, in remission. 7. SARS-CoV-2 negative PCR Plan . Updated 08/10 Continue nebulized treatments Continue steroids Discussed with patient, discharge on 08/11 6-minute Updated 08/09 Repeat SARS-CoV-2 negative Continue steroids and nebulized treatments Once discharge maintenance anticholinergic metered-dose and inhaler May need PT OT 08/08 1. Repeat SARS-CoV-2 testing. 2. Continue current support with steroids and nebulized treatments. 3. Continue home meds. 4. Management of hypertension to PCP. 5. The patient will greatly benefit from a long-acting anticholinergic bronchodilator upon discharge. I do appreciate the privilege in sharing in the patient's care. MIO MARTINEZ MD Aug 10, 2021 09:18
[2021-08-10 10:55] VITALS: BP 140/68
[2021-08-10] MEDS ORDERED: ALBU2.5V8 INH (12:41)
[2021-08-10 14:40] VITALS: BP 139/68
[2021-08-10] MEDS ORDERED: HEPARIN PF 500 UNIT/5 ML DISP.SYRIN. IVP ONE (16:15)
--- NOTE | 2021-08-10 16:15 | NUR ---
SW following. Discussed with RN, discharge order for home with self care if okay with Dr. Neal. RN advised no SW needs.
[2021-08-10 17:19] VITALS: BP 139/68
--- NOTE | 2021-08-10 17:30 | NUR ---
Discharge Note: [facility] Discharge instructions and discharge home medications reviewed with Patient and a copy given. All questions have been answered and understanding verbalized. The following instructions and handouts were given: discharge instructions, new prescriptions, education and follow up recommendations. Discontinued lines and drains: Port deaccessed with needle intact. Patient discharged to Home or Self Care with Family Member via Wheelchair off unit by this RN.
== END 2021-08-10 17:30 | disposition home or self-care (01) | DRG 189 ==
LOC: ER 18:19 → 5 NORTH 23:39 → INTOOBSV 23:39 → OBSVTOIN 08-09 14:46
PROVIDERS: ADMIT Family Medicine; ATTEND Family Medicine
DX: J96.01 Acute respiratory failure with hypoxia (principal); I31.3 Pericardial effusion (noninflammatory); J44.1 Chronic obstructive pulmonary disease with (acute) exacerbation; E11.9 Type 2 diabetes mellitus without complications; E78.00 Pure hypercholesterolemia, unspecified; E78.5 Hyperlipidemia, unspecified; E83.42 Hypomagnesemia; F17.201 Nicotine dependence, unspecified, in remission; G89.29 Other chronic pain; I10 Essential (primary) hypertension; I16.0 Hypertensive urgency; I25.10 Atherosclerotic heart disease of native coronary artery without angina pectoris; I67.2 Cerebral atherosclerosis; J30.2 Other seasonal allergic rhinitis; M43.12 Spondylolisthesis, cervical region; M47.9 Spondylosis, unspecified; M48.02 Spinal stenosis, cervical region; Z20.822 Contact with and (suspected) exposure to COVID-19; Z85.3 Personal history of malignant neoplasm of breast; Z92.21 Personal history of antineoplastic chemotherapy; Z95.5 Presence of coronary angioplasty implant and graft
CPT/HCPCS: 36415; 70450; 71045; 71275; 72125; 80048; 80053; 81001; 82962; 83605; 83735; 83880; 84100; 84484; 85025; 85610; 87426; 87804; 90471; 90686; 93005; 94640; G0378; G0379; J1642; J1650; J1815; J2270; J2930; J3475; Q9967; U0003; U0005; J7613

== ENCOUNTER → 2021-09-06 | Outpatient (CLI) | payer MEDICARE ==
[2021-08-10 17:19] VITALS: BP 139/68
[~2021-09-06] MED LIST changes: +ALBU2.5V8 INH; +ESCITALOPRAM OX10 MG PO; +FAMO40TA57 PO; +FENT1PAT19 TD; +PRED20TA PO; +TIOT18CA IH
[2021-09-06 11:53] LABS: BASO % 0 % (0-3); EOS # 0.1 x10^3/uL (0.0-0.7); EOS % 1 % (0-3); HEMATOCRIT 35.6 % (36.0-47.0); HEMOGLOBIN 11.9 g/dL (12.0-15.5); LYMPH # 1.3 x10^3/uL (1.0-4.8); LYMPH % 26 % (24-48); MEAN CORPUSCULAR HEMOGLOBIN 32 pg (25-35); MEAN CORPUSCULAR HGB CONC 33 g/dL (31-37); MEAN CORPUSCULAR VOLUME 95 fL (79-100); MONO # 0.3 x10^3/uL (0.0-1.1); MONO % 6 % (0-9); NEUT # 3.3 x10^3/uL (1.8-7.7); NEUT % 66 % (31-73); PLATELET COUNT 154 x10^3/uL (140-400); RED BLOOD COUNT 3.76 x10^6/uL (3.50-5.40); RED CELL DISTRIBUTION WIDTH 16.2 % (11.5-14.5)
[2021-09-06 12:08] LABS: CALCIUM 8.6 mg/dL (8.5-10.1); CREATININE 0.8 mg/dL (0.6-1.0); GFR 70.5; POTASSIUM 3.8 mmol/L (3.5-5.1)
[2021-09-06 12:14] LABS: ALBUMIN 3.7 g/dL (3.4-5.0); ALBUMIN/GLOBULIN RATIO 1.1 (1.0-1.7); TOTAL BILIRUBIN 0.5 mg/dL (0.2-1.0); TOTAL PROTEIN 7.2 g/dL (6.4-8.2)
== END ==
LOC: ONCLAB 11:20
PROVIDERS: ATTEND Internal Medicine Hematology & Oncology
DX: C50.911 Malignant neoplasm of unspecified site of right female breast (principal)
CPT/HCPCS: 36415; 80053; 85025

== ENCOUNTER → 2021-09-12 | Outpatient (CLI) | payer MEDICARE ==
[~2021-09-12] MED LIST changes: +TIZA-75 PO; -TIZA4TAB2 PO
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
== END | disposition home or self-care (01) ==
LOC: PNCL 13:33
PROVIDERS: ATTEND Anesthesiology
DX: M79.602 Pain in left arm (principal); M54.2 Cervicalgia; I10 Essential (primary) hypertension; M19.90 Unspecified osteoarthritis, unspecified site; E11.9 Type 2 diabetes mellitus without complications; E78.00 Pure hypercholesterolemia, unspecified; J44.9 Chronic obstructive pulmonary disease, unspecified; K21.9 Gastro-esophageal reflux disease without esophagitis; F41.9 Anxiety disorder, unspecified; F32.9 Major depressive disorder, single episode, unspecified; E66.9 Obesity, unspecified; Z85.3 Personal history of malignant neoplasm of breast; Z86.73 Personal history of transient ischemic attack (TIA), and cerebral infarction without residual deficits; Z98.51 Tubal ligation status; Z98.890 Other specified postprocedural states; Z87.440 Personal history of urinary (tract) infections; Z87.891 Personal history of nicotine dependence; Z79.84 Long term (current) use of oral hypoglycemic drugs; Z79.899 Other long term (current) drug therapy
CPT/HCPCS: G0463

== ENCOUNTER → 2021-09-26 | Outpatient (CLI) | payer MEDICARE ==
--- NOTE | 2021-09-27 09:38 | RAD ---
WHOLE-BODY BONE SCAN Clinical indications: Breast cancer. COMPARISON: No previous bone scan available. TECHNIQUE: After IV infusion of 25 mCi of technetium 99m MDP, delayed anterior and posterior planar i mages of the whole body were performed. FINDINGS: Bilateral renal function is evident. There is activity seen involving the AC joint and the glenohumeral joint bilaterally most likely degenerative in nature. There is activity overlying the up per left rib cage related to Port-A-Cath injection. However, there is a small focus of uptake involvi ng the lateral aspect of the left fourth rib anteriorly is a small focus of uptake involving the ante rior tip of the right third rib. There is degenerative activity seen involving the right knee lateral ly. There is degenerative activity seen involving both feet and ankles. IMPRESSION: Foci of punctate activity involving the anterolateral aspect of the left fourth rib and t he anterior tip of the right third rib. This could be related to trauma/fracture on the left side and costochondritis/trauma/fracture on the right side. Osseous metastatic disease involving these 2 area s cannot be excluded. Otherwise there is no pattern of uptake to indicate osseous metastatic disease scintigraphically. Degenerative activity involving both shoulders and the right knee and both feet/ankles. Electronically signed by: Demetrius Mireles MD (09/27/2021 9:36 AM) [place] [id number]
== END ==
LOC: NM 09:47
PROVIDERS: ATTEND Internal Medicine Hematology & Oncology
DX: C79.51 Secondary malignant neoplasm of bone (principal); C50.911 Malignant neoplasm of unspecified site of right female breast
CPT/HCPCS: 78306; A9503

== ENCOUNTER → 2021-09-29 | Outpatient (CLI) | payer MEDICARE ==
[~2021-09-29] MED LIST changes: +IOHEXOL 180 MG/ML 10 ML VIAL. ONE; +methylPREDNISolone ACETATE 40 MG/ML VIAL. ONE; +methylPREDNISolone ACETATE 80 MG/ML VIAL. ONE
--- NOTE | 2021-09-29 14:52 | PDOC ---
Progress Note - Pain Clinic Date of Service: DOS: DATE: 09/29/21 TIME: 14:47 Diagnosis: Dx: Cervical radiculopathy with cervical degenerative disc disease and cervical spinal stenosis History or Present Illness: HPI: 71-year-old female returns for follow-up status post evaluation and now cleared to be off of her Plavix has been off this for 7 days now and reports that she is off of it for good. Patient reports still significant pain base the neck and shoulders worse on the left than right radiating the right upper extremity left upper extremity and his left posterior shoulder patient reports worse with repetitive motions lifting reaching and weightbearing patient rates it as an 8 or 9-9 on scale 10 is worst 6-7 on average 5-6 its least is a 7 today. Patient scribes pain is aching sharp tight burning in the neck constant severe radiating tight and shooting in the upper extremities bilaterally again worse on the left side. Patient reports no new motor or sensory deficits reports still is worse with activity and is waking her from sleep as well. Physical Exam: VS: Blood pressure is 135/70 pulse 91 respirations 18 temperature 98.8 F weight is 182 pounds PE: PHYSICAL EXAMINATION: GENERAL: The patient is awake, alert, oriented, appropriate, very pleasant in demeanor HEENT: Shows normocephalic, atraumatic. Extraocular movements are intact and symmetrical. NECK: Shows anterior throat supple without palpable lymphadenopathy noted. Swallow reflex symmetrical. CHEST: Shows normal on inspection. Breath sounds are clear bilaterally, no rales rhonchi or wheezes auscultated. [id number] left upper chest. HEART: Shows S1, S2 clear. No murmurs auscultated. ABDOMEN: Soft, nontender, nondistended, obese. No palpable organomegaly is noted. BACK: Shows spine grossly in the midline. Normal-appearing cervical lordotic curvature. Cervical paraspinous muscles show symmetrical on inspection, on palpation has some significant tenderness throughout the upper middle lower decrease the paraspinous muscles diffusely without specific radiation without trigger points. Patient does show full rotation motion of the cervical spine both laterally as well as full extension full forward flexion without significant difficulty. There is slightly increased thoracic kyphosis, some minor flattening of the lumbar lordotic curvature. Lumbar paraspinous muscles show symmetrical on inspection, on palpation shows some moderate tenderness diffusely throughout the upper, middle and lower distribution of the paraspinous muscles, but without specific trigger points, without radiation of pain. The patient has good rotational motion of the lumbar spine, both laterally as well as extension and flexion without significant difficulty. EXTREMITIES: Lower extremities show deep tendon reflexes 1+ in the patellar and tendo calcaneus tendons. Motor exam is 4 on a scale of 5 with right dorsi flexion, extension, quadriceps and hamstring flexion and 4/5 on the left. Peripheral pulses are 1 posterior tibial. No peripheral edema is noted bilaterally. Lower extremities are warm and dry to touch, equal in color and appearance. Upper extremities show deep tendon reflexes 1+ in the bicep triceps tendons, motor exam strong with form scale 5 with biceps tendons and 5 out of 5 with registered radiation therapist strength bilaterally and equal. Peripheral pulses are 2+ radial no peripheral edema is noted bilaterally. SKIN: Shows warm and dry, good turgor. No edema. No sores, rashes or bruising throughout. Procedure: Procedure: Options were discussed with the patient. Patient chart was reviewed as her current medication regimen updated current review of systems updated today as well. We will proceed with a cervical epidural steroid injection today with fluoroscopic guidance. Risks were discussed including but not limited to: Bleeding, infection, possibility of epidural hematoma and subsequent neurological compromise, dural puncture, headaches, spinal cord and/or nerve damage, side effects of steroid medication, and poor results regarding pain control. Patient understands and wished to proceed. Patient will return to the clinic in approximately 2 weeks for follow-up, was counseled as return appointment, typical, and side effects to be aware of. Medication Injected: Med Injected: Procedure cervical epidural steroid injection at the C6-7 level, using local anesthetic under sterile prep and drape using C-arm fluoroscopic guidance under local anesthesia medications injected ;120 mg Depo-Medrol +5 mL normal saline and 2 mL contrast; condition at discharge is stable patient tolerated procedure well. and had no complications Condition at Discharge: Condition at Discharge: Condition at discharge stable, patient tolerated procedure well and had no complications. HILL BURNETT MD Sep 29, 2021 14:52
--- NOTE | 2021-09-29 14:53 | PDOC4 ---
Procedure Note: ICD 10 Code: ICD 10 Code: M54.12 M 48.02 M5 0.30 Procedure Note: Patient was consented for cervical epidural steroid injection with fluoroscopic guidance. Risks were discussed including but not limited to: Bleeding, infection, possibility of epidural hematoma and subsequent neurological compromise, dural puncture, headaches, spinal cord and/or nerve damage, side effects of steroid medication, and poor results regarding pain control. Patient understands and wished to proceed. Procedure cervical epidural steroid injection at the C6-7 level, using local anesthetic under sterile prep and drape using C-arm fluoroscopic guidance under local anesthesia medications injected ;120 mg Depo-Medrol +5 mL normal saline and 2 mL contrast; condition at discharge is stable patient tolerated procedure well. and had no complications HILL BURNETT MD Sep 29, 2021 14:53
== END | disposition home or self-care (01) ==
LOC: PNCL 13:59
PROVIDERS: ATTEND Anesthesiology
DX: M50.10 Cervical disc disorder with radiculopathy, unspecified cervical region (principal); M48.02 Spinal stenosis, cervical region; I10 Essential (primary) hypertension; E78.00 Pure hypercholesterolemia, unspecified; J44.9 Chronic obstructive pulmonary disease, unspecified; E66.9 Obesity, unspecified; K21.9 Gastro-esophageal reflux disease without esophagitis; M19.90 Unspecified osteoarthritis, unspecified site; E11.9 Type 2 diabetes mellitus without complications; F41.9 Anxiety disorder, unspecified; F32.9 Major depressive disorder, single episode, unspecified; Z85.3 Personal history of malignant neoplasm of breast; Z86.73 Personal history of transient ischemic attack (TIA), and cerebral infarction without residual deficits; Z98.51 Tubal ligation status; Z98.890 Other specified postprocedural states; Z79.899 Other long term (current) drug therapy; Z87.891 Personal history of nicotine dependence; Z79.84 Long term (current) use of oral hypoglycemic drugs
CPT/HCPCS: 62321; J1030; J1040; Q9965

== ENCOUNTER 2021-10-12 01:27 | Observation (INO) | payer MEDICARE ==
[~2021-10-12] VITALS: Ht 165.1 cm; Wt 80.2 kg
[~2021-10-12 01:27] MED LIST changes: -IOHEXOL 180 MG/ML 10 ML VIAL. ONE; -methylPREDNISolone ACETATE 40 MG/ML VIAL. ONE; -methylPREDNISolone ACETATE 80 MG/ML VIAL. ONE
--- NOTE | 2021-10-12 01:44 | RAD ---
CT STROKE HEAD W/O History: Weakness, headache. Comparison: 08/07/2021 Technique: Noncontrast CT imaging was performed of the head. Findings: No intracranial hemorrhage. No mass effect. No hydrocephalus. No evidence of acute territorial infar ction. Atherosclerotic calcifications of the intracranial internal carotid arteries. Imaged orbits are unremarkable. Imaged paranasal sinuses and mastoid air cells are clear. The scalp a nd calvarium are unremarkable. Impression: 1. No acute intracranial abnormality. Findings discussed with Cedric Wilder at 10/12/2021 1:40 AM. FOR INTERNAL CODING PURPOSES RESULT CODE: (C) ----- Exposure: One or more of the following individualized dose reduction techniques were utilized for thi s examination: 1. Automated exposure control 2. Adjustment of the mA and/or kV according to patient size 3. Use of iterative reconstruction technique. Electronically signed by: Daniel Tavarez MD (10/12/2021 1:41 AM) [facility]
[2021-10-12] MEDS ORDERED: CONTRAST GIVEN. MC PRN (01:45)
[2021-10-12] MEDS ORDERED: IOHEXOL 300 MG/ML 100ML VIAL. IV ONE (02:00)
--- NOTE | 2021-10-12 02:09 | PHYS DOC ---
Past Medical History Past Medical History: Cancer, Diabetes-Type II, High Cholesterol, Hypertension, Other Additional Past Medical Histor: Chronic back pain, breast CA lEFT. Past Surgical History: Other Additional Past Surgical Histo: Breast reduction; CARDIAC STENT PLACEMENT 03/25/20 Smoking Status: Former Smoker Alcohol Use: None Drug Use: None General Adult EDM: Chief Complaint: NEURO SYMPTOMS/DEFICITS HPI: HPI: Patient is a 71 year old female past medical history hypertension diabetes hyperlipidemia presents with a chief complaint of headache. Patient states she called 911 due to left-sided headache. Patient states headache started around 1700 hrs. Pain is located left occipital with radiation to left temporal region. Patient rates pain 10/10. She denies any associated nausea or vomiting. EMS activated code stroke in the field due to concerns of slurred speech. When I examined the patient she is alert to self but confused about the year. She has no facial droop and no slurred speech. Patient's moves bilateral upper extremities passively and actively with a normal sensation. Patient bilateral lower extremities appear to be weak right greater than left. Patient has a drift bilaterally but does not touch the bed. Patient complains of intense pain in her back with lifting her legs-- states back pain is chronic. Patient's lower extremity sensation are intact. Review of Systems: Review of Systems: Constitutional: Denies fever or chills. [] Eyes: Denies change in visual acuity. [] HENT: Denies nasal congestion or sore throat. [] Respiratory: Denies cough or shortness of breath. [] Cardiovascular: Denies chest pain or edema. [] GI: Denies abdominal pain, nausea, vomiting, bloody stools or diarrhea. [] : Denies dysuria. [] Musculoskeletal: Denies back pain or joint pain. [] Integument: Denies rash. [] Neurologic: Denies headache, focal weakness or sensory changes. [] Endocrine: Denies polyuria or polydipsia. [] Lymphatic: Denies swollen glands. [] Psychiatric: Denies depression or anxiety. [] Heart Score: C/O Chest Pain: N/A Risk Factors: Risk Factors: DM, Current or recent (<one month) smoker, HTN, HLP, family history of CAD, obesity. Risk Scores: Score 0 - 3: 2.5% MACE over next 6 weeks - Discharge Home Score 4 - 6: 20.3% MACE over next 6 weeks - Admit for Clinical Observation Score 7 - 10: 72.7% MACE over next 6 weeks - Early Invasive Strategies Current Medications: Current Medications Medications (Trade) Dose Ordered Sig/Caleb Start Time Stop Time Status Last Admin Dose Admin Info (CONTRAST GIVEN -- Rx MONITORING) 1 each PRN DAILY PRN 10/12/21 01:45 10/14/21 01:44 Iohexol (Omnipaque 300 Mg/ml) 75 ml 1X ONCE 10/12/21 02:00 10/12/21 02:01 DC Allergies: Allergies: Allergies Coded Allergies Type Severity Reaction Last Updated Verified No Known Drug Allergies 07/07/20 No Physical Exam: PE: Constitutional: Well developed, well nourished, no acute distress, non-toxic appearance. [] HENT: Normocephalic, atraumatic, bilateral external ears normal, oropharynx moist, no oral exudates, nose normal. [] Eyes: PERRLA, EOMI, conjunctiva normal, no discharge. [] Neck: Normal range of motion, no tenderness, supple, no stridor. [] Cardiovascular:Heart rate regular rhythm, no murmur [] Lungs & Thorax: Bilateral breath sounds clear to auscultation [] Abdomen: Bowel sounds normal, soft, no tenderness, no masses, no pulsatile masses. [] Skin: Warm, dry, no erythema, no rash. [] Back: No tenderness, no CVA tenderness. [] Extremities: No tenderness, no cyanosis, no clubbing, ROM intact, no edema. [] Neurologic: Alert and oriented X 3, normal motor function, normal sensory function, no focal deficits noted. [] Psychologic: Affect normal, judgement normal, mood normal. [] Current Patient Data: Labs: Laboratory Tests Test 10/12/21 01:32 Glucose (Fingerstick) 269 mg/dL (70-99) H EKG: EKG: [] Performed at 203 Rate 86 Normal sinus rhythm No ST elevation No ST depression No acute PR Radiology/Procedures: Radiology/Procedures: [] Course & Med Decision Making: Course & Med Decision Making Pertinent Labs and Imaging studies reviewed. (See chart for details) []Patient evaluated for headache. Code stroke activation based upon EMS history. CT head - negative. CTA head and neck no large vessel occlusion Pain treated with fentanyl then Toradol, benadryl and compazine. Not TPA candidate-- based up hpi and pe. Admitted to hospitalist with neurology consult. Sebastian Disclaimer: Sebastian Disclaimer: This electronic medical record was generated, in whole or in part, using a voice recognition dictation system. Departure Departure Impression: Primary Impression: Intractable headache Additional Impression: Chronic back pain Disposition: ADMITTED INPATIENT Admitting Physician: KARIS Referrals: NON,STAFF (PCP) RADHA ZHENG DO Oct 12, 2021 02:09
[2021-10-12 02:13] LABS: BASO % 0 % (0-3); CALCIUM 8.7 mg/dL (8.5-10.1); CREATININE 0.6 mg/dL (0.6-1.0); EOS # 0.1 x10^3/uL (0.0-0.7); EOS % 2 % (0-3); GFR 98.3; HEMOGLOBIN 11.1 g/dL (12.0-15.5); LYMPH # 1.6 x10^3/uL (1.0-4.8); LYMPH % 27 % (24-48); MEAN CORPUSCULAR HEMOGLOBIN 32 pg (25-35); MEAN CORPUSCULAR HGB CONC 34 g/dL (31-37); MEAN CORPUSCULAR VOLUME 94 fL (79-100); MONO # 0.3 x10^3/uL (0.0-1.1); MONO % 6 % (0-9); NEUT % 66 % (31-73); PLATELET COUNT 124 x10^3/uL (140-400); POTASSIUM 3.3 mmol/L (3.5-5.1); RED BLOOD COUNT 3.51 x10^6/uL (3.50-5.40); RED CELL DISTRIBUTION WIDTH 15.4 % (11.5-14.5); WHITE BLOOD COUNT 6.1 x10^3/uL (4.0-11.0)
[2021-10-12 02:21] LABS: PROTHROMBIN TIME PATIENT 13.9 SEC (11.7-14.0)
--- NOTE | 2021-10-12 02:23 | RAD ---
CTA STROKE HEAD/NECK w/o History: Left-sided weakness Technique: After bolus of intravenous contrast, volumetric CT data acquisition was acquired of the he ad and neck. Multiplanar reconstruction images to include MIP and 3-D reconstruction images are submi tted. Any determination of stenosis is based on NASCET criteria. Comparison: CT head 10/12/2021 Findings: Angiogram neck: Aortic arch: Normal caliber, 2 vessel arch with moderate calcification. Common carotid arteries: No stenosis, occlusion or dissection. Internal carotid arteries: Bilateral proximal internal carotid artery stenosis. Approximately 1.7 mm right proximal ICA lumen for approximately 60 percent stenosis. Approximately 1.8 cm left ICA lumen f or approximately 60 percent stenosis. External carotid arteries: Patent Vertebral arteries: No stenosis, occlusion or dissection. Angiogram head: ICA: No stenosis, occlusion or aneurysm. Heavy calcification of the cavernous ICAs. MCA: No stenosis, occlusion or aneurysm. SANDRO: No stenosis, occlusion or aneurysm. [employer]: No stenosis, occlusion or aneurysm. Basilar artery: No stenosis, occlusion or aneurysm. Distal vertebral arteries: No stenosis, occlusion or aneurysm. Other: Calcific granuloma left upper lobe. No airspace consolidation. Left chest Mediport catheter with acut e major tip at the margin of the valve. Soft tissue nodule anterior to the sternum measuring 1 cm diameter may represent inclusion cyst. No pathologic osseous lesions. Multilevel degenerative changes throughout the cervical spine. Mild an terolisthesis of C3 on C4. Impression: 1. No large vessel occlusion. 2. Approximately 60 percent stenosis at the proximal internal carotid arteries bilaterally. 3. Left chest Mediport with Heubner needle positioned at the margin of the hub, recommend repositioni ng. Findings discussed with Cedric Wlider at 10/12/2021 2:19 AM. FOR INTERNAL CODING PURPOSES RESULT CODE: (C) Exposure: One or more of the following individualized dose reduction techniques were utilized for thi s examination: 1. Automated exposure control 2. Adjustment of the mA and/or kV according to patient size 3. Use of iterative reconstruction technique. Electronically signed by: Daniel Tavarez MD (10/12/2021 2:21 AM) [facility]
--- NOTE | 2021-10-12 02:25 | EKG ---
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
[2021-10-12] MEDS ORDERED: fentaNYL PF VIAL 100 MCG/2 ML VIAL IVP ONE (03:00)
[2021-10-12] MEDS ORDERED: MORPHINE SULFATE 4 MG/ML INJ. IVP PRN (03:30)
[2021-10-12] MEDS ORDERED: ONDANSETRON PF 4 MG/2 ML VIAL. IVP PRN (03:30)
[2021-10-12 03:59] LABS: BILIRUBIN,URINE NEGATIVE (NEG); CLARITY,URINE CLEAR; COLOR,URINE YELLOW; NITRITE,URINE NEGATIVE (NEG); PROTEIN,URINE NEGATIVE (NEG-TRACE)
[2021-10-12] MEDS ORDERED: KETOROLAC 15 MG/ML VIAL. IVP ONE (04:00)
[2021-10-12] MEDS ORDERED: diphenhydrAMINE 50 MG/ML VIAL IVP ONE (04:00)
[2021-10-12] MEDS ORDERED: PROCHLORPERAZINE 10 MG/2 ML VIAL. IV ONE (04:00)
[2021-10-12 04:19] LABS: BACTERIA,URINE FEW /HPF (0-FEW); RBC,URINE OCC /HPF (0-2)
[2021-10-12 05:03] VITALS: BP 143/71
[2021-10-12 07:00] VITALS: BP 164/69
[2021-10-12] MEDS ORDERED: HYDROcodone/APAP 10/325 1 TAB TABLET PO PRN (09:00)
[2021-10-12] MEDS ORDERED: tiZANidine 4 MG TABLET. PO ONE (09:30)
--- NOTE | 2021-10-12 10:25 | PDOC2 ---
NEUROLOGY CONSULT Date of Service DOS: DATE: 10/12/21 TIME: 10:14 Reason for Consult Reason for Consult: Headache Referring Physician Referring Physician: Dr. Forman Source Source: Chart review, Patient History of Present Illness History of Present Illness The patient is a 71-year-old right-handed female who called 911 for a headache that started at 1700 yesterday. She describes left neck pain radiating into the left occiput with radiation to the left temporal area. Code stroke was activated in the field due to concerns for slurred speech, but in the emergency department she had no focal findings and therefore was not considered an alteplase candidate. I last saw the patient 18 months ago for headaches and neck pain, with left facial numbness, which I ascribed to hypertensive encephalopathy. Patient had a negative work-up including MRI of the brain, but she did have cervical spondylosis. I recommended physical therapy and follow-up with me in 2 months, but the patient did not come in for an appointment. I see that she has been seeing Dr. Hernandez in the pain clinic. I reviewed his notes and he comments on abnormal cervical MRI as reviewed below. Patient continues to have severe neck pain but denies any focal neurological symptoms today. Again, this neck pain is chronic, radiating into the head. She also has chronic back pain. She has not figured out any inciting or mitigating features. This is achy chronic pain. Past Medical History Cardiovascular: AFIB, HTN, Hyperlipidemia CENTRAL NERVOUS SYSTEM: CVA, Periperal neuropathy GI: GERD Heme/Onc: Cancer (Metastatic breast) Psych: Depression Musculoskeletal: low back pain (Neck pain cervical stenosis), Osteoarthritis ENT: Allergic Rhinitis Renal/: UTI, Other (Nephrolithiasis) Endocrine: Diabetes Past Surgical History Past Surgical History: Tubal Ligation, Other (breast reduction and tumor rem oval; left chest portacath placement) Family History Family History: Hypertension Social History Social History Quit smoking, rare alcohol, , retired Current Medications Current Medications Current Medications Iohexol (Omnipaque 300 Mg/ml) 75 ml 1X ONCE IV ; Start 10/12/21 at 02:00; Stop 10/12/21 at 02:01; Status DC Info (CONTRAST GIVEN -- Rx MONITORING) 1 each PRN DAILY PRN MC SEE COMMENTS; Start 10/12/21 at 01:45; Stop 10/14/21 at 01:44 Fentanyl Citrate (Fentanyl 2ml Vial) 50 mcg 1X ONCE IVP Last administered on 10/12/21at 02:54; Start 10/12/21 at 03:00; Stop 10/12/21 at 03:01; Status DC Ketorolac Tromethamine (Toradol 15mg Vial) 15 mg 1X ONCE IVP Last administered on 10/12/21at 03:41; Start 10/12/21 at 04:00; Stop 10/12/21 at 04:01; Status DC Diphenhydramine HCl (Benadryl) 25 mg 1X ONCE IVP Last administered on 10/12/21at 03:41; Start 10/12/21 at 04:00; Stop 10/12/21 at 04:01; Status DC Prochlorperazine Edisylate (Compazine) 10 mg 1X ONCE IV Last administered on 10/12/21at 03:40; Start 10/12/21 at 04:00; Stop 10/12/21 at 04:01; Status DC Ondansetron HCl (Zofran) 4 mg PRN Q8HRS PRN IVP NAUSEA/VOMITING 1ST CHOICE; Start 10/12/21 at 03:30; Stop 10/13/21 at 03:29 Morphine Sulfate (Morphine Sulfate) 4 mg PRN Q2HR PRN IVP SEVERE PAIN 7-10; Start 10/12/21 at 03:30; Stop 10/13/21 at 03:29 Acetaminophen/ Hydrocodone Bitart (Lortab 10/325) 1 tab PRN Q6HRS PRN PO PAIN Last administered on 10/12/21at 10:06; Start 10/12/21 at 09:00 Tizanidine HCl (Zanaflex) 4 mg 1X ONCE PO Last administered on 10/12/21at 10:06; Start 10/12/21 at 09:30; Stop 10/12/21 at 09:31; Status DC Tizanidine HCl (Zanaflex) 4 mg PRN Q8HRS PRN PO MUSCLE SPASMS; Start 10/12/21 at 17:00 Active Scripts Active Proair Hfa (Albuterol Sulfate) 8.5 Gm Hfa.aer.ad 1 Puff INH PRN Q6HRS PRN 30 Days Spiriva (Tiotropium [place]) 18 Mcg Cap.w.dev 1 Cap IH DAILY 30 Days [Diclofenac Sodium] 100 GM Gel..gram. 1 Matthew TP BID 7 Days Reported FENTANYL 75mcg/hr (Fentanyl) 1 Each Patch.td72 1 Patch TD Q72H Tizanidine Hcl 4 Mg Tablet 4 Mg PO TID PRN Dicyclomine Hcl 10 Mg Capsule 10 Mg PO BID Hydrocodone-Apap 10-325 (Hydrocodone Bit/Acetaminophen) 1 Tab Tablet 1 Tab PO PRN Q4HRS PRN Klor-Con 10 (Potassium Chloride) 10 Meq Tablet.er 10 Meq PO DAILY Escitalopram Oxalate 10 Mg Tablet 10 Mg PO DAILY Ibuprofen 800 Mg Tablet 800 Mg PO PRN Q6HRS PRN Pepcid (Famotidine) 40 Mg Tablet 40 Mg PO HS Omeprazole 40 Mg Capsule.dr 1 Cap PO DAILY Carvedilol (Carvedilol) 6.25 Mg Tablet 6.25 Mg PO BIDWMEALS Atorvastatin Calcium 40 Mg Tablet 40 Mg PO HS Montelukast Sodium Tablet (Montelukast Sodium) 10 Mg Tablet 10 Mg PO HS Lasix (Furosemide) 40 Mg Tablet 40 Mg PO DAILY PRN Metformin Hcl 500 Mg Tablet 1,000 Mg PO BID Allergies Allergies: Coded Allergies: No Known Drug Allergies (Unverified , 07/07/20) ROS Review of System Negative for fever, chills, weight loss, shortness of breath, chest pain, indigestion, hematochezia, melena, and dysuria. Full 14-point review of systems is negative. Physical Exam Physical Examination General: Well-developed, well-nourished white female in no acute distress HEENT: Normocephalic andatraumatic.Temporal arteriespulsatile and nontender.Fundoscopic exam unremarkable Neck: Supple without bruit, no meningismus. Some muscle tenderness to the left of the cervical spine Musculoskeletal: Stability:see neurologic. Gait exam:see neurologic. Tone:see neurologic. Strength:see neurologic. Neurological: Mental Status:intact, orientation, memory, attention span/concentration, language, fund of knowledge normal. Cranial Nerves:Pupils equal and reactive to light, extraocular movements areintact, visual masterson are full to confrontation. Facial sensation is normal. There is no facial asymmetry. Vestibulo-ocular reflex is intact. Palate elevates and tongue protrudes in midline. All other cranial related problems are negative except as mentioned before.Reflexes:1+ and symmetric with flexor plantar responses. Motor:5/5 strength with normal tone and bulk. Coordination:Finger-nose finger and h eel-to-spencer testing are normal. Rapid alternating movements and fine finger movements are intact. Gait:Normal, including tandem. Sensory: stocking loss, no abnormal facial sensation. Vitals VITALS Vital Signs Date Time Temp Pulse Resp B/P (MAP) Pulse Ox O2 Delivery O2 Flow Rate FiO2 10/12/21 07:00 98.6 75 16 164/69 (100) 93 Room Air 98.6 Labs Labs Laboratory Tests Test 10/12/21 01:32 10/12/21 01:55 10/12/21 02:45 10/12/21 07:21 Glucose (Fingerstick) 269 mg/dL (70-99) 154 mg/dL (70-99) White Blood Count 6.1 x10^3/uL (4.0-11.0) Red Blood Count 3.51 x10^6/uL (3.50-5.40) Hemoglobin 11.1 g/dL (12.0-15.5) Hematocrit 33.0 % (36.0-47.0) Mean Corpuscular Volume 94 fL (79-100) Mean Corpuscular Hemoglobin 32 pg (25-35) Mean Corpuscular Hemoglobin Concent 34 g/dL (31-37) Red Cell Distribution Width 15.4 % (11.5-14.5) Platelet Count 124 x10^3/uL (140-400) Neutrophils (%) (Auto) 66 % (31-73) Lymphocytes (%) (Auto) 27 % (24-48) Monocytes (%) (Auto) 6 % (0-9) Eosinophils (%) (Auto) 2 % (0-3) Basophils (%) (Auto) 0 % (0-3) Neutrophils # (Auto) 4.0 x10^3/uL (1.8-7.7) Lymphocytes # (Auto) 1.6 x10^3/uL (1.0-4.8) Monocytes # (Auto) 0.3 x10^3/uL (0.0-1.1) Eosinophils # (Auto) 0.1 x10^3/uL (0.0-0.7) Basophils # (Auto) 0.0 x10^3/uL (0.0-0.2) Prothrombin Time 13.9 SEC (11.7-14.0) Prothromb Time International Ratio 1.1 (0.8-1.1) Activated Partial Thromboplast Time 27 SEC (24-38) Sodium Level 135 mmol/L (136-145) Potassium Level 3.3 mmol/L (3.5-5.1) Chloride Level 98 mmol/L (98-107) Carbon Dioxide Level 28 mmol/L (21-32) Anion Gap 9 (6-14) Blood Urea Nitrogen 11 mg/dL (7-20) Creatinine 0.6 mg/dL (0.6-1.0) Estimated GFR (Cockcroft-Gault) 98.3 Glucose Level 240 mg/dL (70-99) Calcium Level 8.7 mg/dL (8.5-10.1) Urine Color Yellow Urine Clarity Clear Urine pH 7.0 (<5.0-8.0) Urine Specific Morris >=1.030 (1.000-1.030) Urine Protein Negative mg/dL (NEG-TRACE) Urine Glucose (UA) 250 mg/dL (NEG) Urine Ketones (Stick) Negative mg/dL (NEG) Urine Blood Negative (NEG) Urine Nitrite Negative (NEG) Urine Bilirubin Negative (NEG) Urine Urobilinogen Dipstick 1.0 mg/dL (0.2 mg/dL) Urine Leukocyte Esterase Negative (NEG) Urine RBC Occ /HPF (0-2) Urine WBC 11-20 /HPF (0-4) Urine Squamous Epithelial Cells Few /LPF Urine Bacteria Few /HPF (0-FEW) Laboratory Tests Test 10/12/21 01:32 10/12/21 01:55 10/12/21 02:45 10/12/21 07:21 Glucose (Fingerstick) 269 mg/dL (70-99) 154 mg/dL (70-99) White Blood Count 6.1 x10^3/uL (4.0-11.0) Red Blood Count 3.51 x10^6/uL (3.50-5.40) Hemoglobin 11.1 g/dL (12.0-15.5) Hematocrit 33.0 % (36.0-47.0) Mean Corpuscular Volume 94 fL (79-100) Mean Corpuscular Hemoglobin 32 pg (25-35) Mean Corpuscular Hemoglobin Concent 34 g/dL (31-37) Red Cell Distribution Width 15.4 % (11.5-14.5) Platelet Count 124 x10^3/uL (140-400) Neutrophils (%) (Auto) 66 % (31-73) Lymphocytes (%) (Auto) 27 % (24-48) Monocytes (%) (Auto) 6 % (0-9) Eosinophils (%) (Auto) 2 % (0-3) Basophils (%) (Auto) 0 % (0-3) Neutrophils # (Auto) 4.0 x10^3/uL (1.8-7.7) Lymphocytes # (Auto) 1.6 x10^3/uL (1.0-4.8) Monocytes # (Auto) 0.3 x10^3/uL (0.0-1.1) Eosinophils # (Auto) 0.1 x10^3/uL (0.0-0.7) Basophils # (Auto) 0.0 x10^3/uL (0.0-0.2) Prothrombin Time 13.9 SEC (11.7-14.0) Prothromb Time International Ratio 1.1 (0.8-1.1) Activated Partial Thromboplast Time 27 SEC (24-38) Sodium Level 135 mmol/L (136-145) Potassium Level 3.3 mmol/L (3.5-5.1) Chloride Level 98 mmol/L (98-107) Carbon Dioxide Level 28 mmol/L (21-32) Anion Gap 9 (6-14) Blood Urea Nitrogen 11 mg/dL (7-20) Creatinine 0.6 mg/dL (0.6-1.0) Estimated GFR (Cockcroft-Gault) 98.3 Glucose Level 240 mg/dL (70-99) Calcium Level 8.7 mg/dL (8.5-10.1) Urine Color Yellow Urine Clarity Clear Urine pH 7.0 (<5.0-8.0) Urine Specific Morris >=1.030 (1.000-1.030) Urine Protein Negative mg/dL (NEG-TRACE) Urine Glucose (UA) 250 mg/dL (NEG) Urine Ketones (Stick) Negative mg/dL (NEG) Urine Blood Negative (NEG) Urine Nitrite Negative (NEG) Urine Bilirubin Negative (NEG) Urine Urobilinogen Dipstick 1.0 mg/dL (0.2 mg/dL) Urine Leukocyte Esterase Negative (NEG) Urine RBC Occ /HPF (0-2) Urine WBC 11-20 /HPF (0-4) Urine Squamous Epithelial Cells Few /LPF Urine Bacteria Few /HPF (0-FEW) Images Images CTA STROKE HEAD/NECK w/o History: Left-sided weakness Technique: After bolus of intravenous contrast, volumetric CT data acquisition was acquired of the head and neck. Multiplanar reconstruction images to include MIP and 3-D reconstruction images are submitted. Any determination of stenosis is based on NASCET criteria. Comparison: CT head 10/12/2021 Findings: Angiogram neck: Aortic arch: Normal caliber, 2 vessel arch with moderate calcification. Common carotid arteries: No stenosis, occlusion or dissection. Internal carotid arteries: Bilateral proximal internal carotid artery stenosis. Approximately 1.7 mm right proximal ICA lumen for approximately 60 percent stenosis. Approximately 1.8 cm left ICA lumen for approximately 60 percent stenosis. External carotid arteries: Patent Vertebral arteries: No stenosis, occlusion or dissection. Angiogram head: ICA: No stenosis, occlusion or aneurysm. Heavy calcification of the cavernous ICAs. MCA: No stenosis, occlusion or aneurysm. SANDRO: No stenosis, occlusion or aneurysm. [employer]: No stenosis, occlusion or aneurysm. Basilar artery: No stenosis, occlusion or aneurysm. Distal vertebral arteries: No stenosis, occlusion or aneurysm. Other: Calcific granuloma left upper lobe. No airspace consolidation. Left chest Mediport catheter with acute major tip at the margin of the valve. Soft tissue nodule anterior to the sternum measuring 1 cm diameter may represent inclusion cyst. No pathologic osseous lesions. Multilevel degenerative changes throughout the cervical spine. Mild anterolisthesis of C3 on C4. Impression: 1. No large vessel occlusion. 2. Approximately 60 percent stenosis at the proximal internal carotid arteries bilaterally. 3. Left chest Mediport with Heubner needle positioned at the margin of the hub, recommend repositioning. CT STROKE HEAD W/O History: Weakness, headache. Comparison: 08/07/2021 Technique: Noncontrast CT imaging was performed of the head. Findings: No intracranial hemorrhage. No mass effect. No hydrocephalus. No evidence of acute territorial infarction. Atherosclerotic calcifications of the intracranial internal carotid arteries. Imaged orbits are unremarkable. Imaged paranasal sinuses and mastoid air cells are clear. The scalp and calvarium are unremarkable. Impression: 1. No acute intracranial abnormality. Reference in Dr. Hernandez' note: MRI scan of the cervical spine showing broad-based disc bulging and fusions at C4-5 C5-6 as well as C6-7 with diffuse spinal stenosis from C3-4 through C6-7 with mild compression of the cord at C3-4 C4-5 and slight asymmetric canal narrowing at C5-6 and mild central stenosis C6-7. WHOLE-BODY BONE SCAN, 09/27/21 Clinical indications: Breast cancer. COMPARISON: No previous bone scan available. TECHNIQUE: After IV infusion of 25 mCi of technetium 99m MDP, delayed anterior and posterior planar images of the whole body were performed. FINDINGS: Bilateral renal function is evident. There is activity seen involving the AC joint and the glenohumeral joint bilaterally most likely degenerative in nature. There is activity overlying the upper left rib cage related to Port-A-Cath injection. However, there is a small focus of uptake involving the lateral aspect of the left fourth rib anteriorly is a small focus of uptake involving the anterior tip of the right third rib. There is degenerative act ivity seen involving the right knee laterally. There is degenerative activity seen involving both feet and ankles. IMPRESSION: Foci of punctate activity involving the anterolateral aspect of the left fourth rib and the anterior tip of the right third rib. This could be related to trauma/fracture on the left side and costochondritis/trauma/fracture on the right side. Osseous metastatic disease involving these 2 areas cannot be excluded. Otherwise there is no pattern of uptake to indicate osseous metastatic disease scintigraphically. Degenerative activity involving both shoulders and the right knee and both feet/ankles. Assessment/Plan Assessment/Plan Impression: Neck pain due to chronic degenerative changes, no evidence of severe radiculopathy and no evidence of myelopathy. No sign of stroke, negative head CT and CT angiogram History of breast cancer, negative bone scan earlier this month Diabetic peripheral neuropathy Also has chronic back pain. Recommendations: She just had a second epidural injection last week, too soon to know if it is taking effect For now, supportive care with narcotics which she is already taking, tizanidine, which helped her when I saw her 18 months ago, and some physical therapy Aim to discharge as soon as later today No need for any stroke work-up or stroke-pathway items Thank you for letting me help with the patient's care. ARTUR HOWARD MD Oct 12, 2021 10:25
[2021-10-12 11:00] VITALS: BP 100/71
[2021-10-12] MEDS ORDERED: FENT1PAT19 TD (11:21)
[2021-10-12] MEDS ORDERED: HYDR-2769 PO (11:21)
--- NOTE | 2021-10-12 11:59 | SSS ---
DATE OF SERVICE: 10/12/2021 ADMIT DATE: 10/12/2021 CHIEF COMPLAINT: Headache. HISTORY OF PRESENT ILLNESS: The patient is a pleasant 71-year-old female who is on fentanyl patches and Mantua at home. She does see a pain management doctor, Dr. Bony Hernandez. She apparently called 911 because she had a headache. I discussed the case with ER physician. We admitted the patient. We consulted Neurology, Dr. Devries, who saw her this morning and he is okay with her getting home. We plan to discharge. PAST MEDICAL HISTORY: Chronic headaches, chronic narcotic dependence, chronic pain, AFib, hypertension, hyperlipidemia, stroke, neuropathy, GERD, metastatic breast cancer, depression, osteoarthritis, allergic rhinitis, UTI and diabetes. ALLERGIES: None. FAMILY HISTORY: Diabetes. SOCIAL HISTORY: She does not drink, smoke or take drugs. MEDICATIONS: Reviewed, please refer to the MRAD. REVIEW OF SYSTEMS: GENERAL: No history of weight change, weakness or fevers. SKIN: No bruising, hair changes or rashes. EYES: No blurred, double or loss of vision. NOSE AND THROAT: No history of nosebleeds, hoarseness or sore throat. HEART: No history of palpitations, chest pain or shortness of breath on exertion. LUNGS: Denies cough, hemoptysis, wheezing or shortness of breath. GASTROINTESTINAL: Denies changes in appetite, nausea, vomiting, diarrhea or constipation. GENITOURINARY: No history of frequency, urgency, hesitancy or nocturia. NEUROLOGIC: She complains of headache. PSYCHIATRIC: No history of panic, anxiety or depression. ENDOCRINE: No history of heat or cold intolerance, polyuria or polydipsia. EXTREMITIES: Denies muscle weakness, joint pain, pain on walking or stiffness. PHYSICAL EXAMINATION: VITALS: Within normal limits and are stable. GENERAL: No apparent distress. Alert and oriented. HEENT: Normal cephalic atraumatic, external auditory canals are patent. EYES: Extraocular muscles are intact, pupils are equally round and reactive to light and accommodation. MUSCULOSKELETAL: Well developed, well nourished, good range of motion. ENDOCRINE: No thyromegaly was palpated. LYMPHATICS: No cervical chain or axillary nodes were noted. HEMATOPOIETIC: No bruising. NECK: Supple, no JVD, no thyromegaly was noted. LUNGS: Clear to auscultation in all lung masterson without rhonchi or wheezing. HEART: RRR, S1, S2 present. Peripheral pulses intact, no obvious murmurs were noted. ABDOMEN: Soft, nontender. Positive bowel sounds no organomegaly, normal bowel sounds. EXTREMITIES: Without any cyanosis, clubbing, or edema. Pedal pulses intact, Homans sign is negative. NEUROLOGIC: Normal speech, normal tone. A and O x3, moves all extremities, no obvious focal deficits. PSYCHIATRIC: Normal affect, normal mood. Stable. SKIN: No ulcerations or rashes, good skin turgor, no jaundice. VASCULAR: Good capillary refill, neurovascular bundle appears to be intact. LABORATORY DATA: White count 6. ASSESSMENT AND PLAN: Resolving headache. The patient was admitted overnight for observation. This morning, she is doing better. Still has a little bit of a headache. Dr. Garza saw her and recommended supportive care and probable discharge later today. DISPOSITION: Home. ACTIVITY: As tolerated. DIET: Low sodium. MEDICATIONS: Please see the MRAD. I did refill her Mantua 10 mg 1 every 6 p.r.n. and her fentanyl patches 75 mcg, change every 3 days. Continue her home atorvastatin 40 a day, albuterol, Coreg 6.25 b.i.d., dicyclomine 10 b.i.d., escitalopram 10 a day, Pepcid 40 a day, Lasix 40 a day, ibuprofen 800 every 6 hours p.r.n., metformin 1000 b.i.d., Singulair 10 a day, omeprazole 40 a day, potassium 10 a day, Spiriva, and tizanidine 4 t.i.d. Total time [address]: ELKE/arun TID: [id number]
[2021-10-12] MEDS ORDERED: IOHEXOL 300 MG/ML 100ML VIAL. ONE (12:02)
--- NOTE | 2021-10-12 12:43 | NUR ---
SW following. Discussed with RN, pt from home, room air, ada diet. Discharge order for home with self care. RN advised no SW needs.
--- NOTE | 2021-10-12 16:21 | NUR ---
patient discharged home with daughter in law. meds and follow up reviewed. pt v/u. IV removed intact. pt stable upon dc.
[2021-10-12] MEDS ORDERED: tiZANidine 4 MG TABLET. PO PRN (17:00)
== END 2021-10-12 16:10 | disposition home or self-care (01) ==
LOC: ER 01:27 → INTOOBSV 03:50 → 5 SOUTH 03:50
PROVIDERS: ADMIT Internal Medicine; ATTEND Internal Medicine
DX: R51.9 Headache, unspecified (principal); M48.02 Spinal stenosis, cervical region; E11.40 Type 2 diabetes mellitus with diabetic neuropathy, unspecified; E78.00 Pure hypercholesterolemia, unspecified; E78.5 Hyperlipidemia, unspecified; G89.29 Other chronic pain; I10 Essential (primary) hypertension; I48.91 Unspecified atrial fibrillation; F32.A Depression, unspecified; C50.919 Malignant neoplasm of unspecified site of unspecified female breast; M19.90 Unspecified osteoarthritis, unspecified site; Z85.3 Personal history of malignant neoplasm of breast; Z86.73 Personal history of transient ischemic attack (TIA), and cerebral infarction without residual deficits; Z79.01 Long term (current) use of anticoagulants; Z87.442 Personal history of urinary calculi; Z87.891 Personal history of nicotine dependence; Z95.5 Presence of coronary angioplasty implant and graft; Z79.899 Other long term (current) drug therapy; Z98.890 Other specified postprocedural states
CPT/HCPCS: 36415; 70450; 70496; 70498; 80048; 81001; 82962; 85025; 85610; 85730; 87086; 93005; 96374; 96375; 97161; 99285; G0378; J0780; J1200; J1885; J3010; G0379

== ENCOUNTER 2021-11-08 08:33 | Outpatient (CLI) | payer MEDICARE ==
[~2021-11-08] VITALS: Ht 160 cm; Wt 81.0 kg
[2021-11-08 09:16] VITALS: BP 163/72
[2021-11-08] MEDS ORDERED: LIDOCAINE 1%/EPI 1:100,000 20 ML VIAL. ONE (10:16)
[2021-11-08] MEDS ORDERED: LIDOCAINE 1%/EPI 1:100,000 20 ML VIAL. INJ ONE (10:45)
--- NOTE | 2021-11-08 10:54 | NUR ---
Pt to IR for portacath removal, local sedation only. Pt tolerated without diffculty. Dressing dry and intact to L chest. EDGARDO RN
[2021-11-08 11:00] VITALS: BP 134/65
[2021-11-08 11:15] VITALS: BP 141/59
--- NOTE | 2021-11-08 11:36 | RAD ---
Removal of left subclavian port 11/08/2021 INDICATION: Port no longer needed Consent: The procedure was explained in its entirety to the patient or the patients designated repres entative by a member of the treatment team, including a discussion of the risks, benefits and commonl y accepted alternatives to the procedure, as well as the expected consequences of no therapy whatsoev er. Discussion of the risks included, but was not limited to, those that are most frequent and thos e that are rare but possibly severe or life-threatening, as well as the possibility of unforeseen com plications. Procedural details. The patient was placed in the supine position. A timeout procedure was performed. A left chest was prepped and draped using sterile barrier technique. 1% lidocaine was administered f or local anesthesia. An incision was made overlying the port reservoir. Port was dissected, removed, with the catheter intact. This was confirmed fluoroscopically. The wound was closed in layers using 4 -0 Vicryl suture and Dermabond. Sterile dressings were applied. No immediate complications were ident ified.Total fluoroscopy time 1 minute. Dose area product: 3 Martinez centimeter squared IMPRESSION: Removal of left-sided port Electronically signed by: Matthew Asher MD (11/08/2021 11:34 AM) [id number]
[2021-11-08 11:46] VITALS: BP 150/61
== END 2021-11-08 12:00 | disposition home or self-care (01) ==
LOC: INTRAD 08:33
PROVIDERS: ATTEND Internal Medicine Hematology & Oncology
DX: Z45.2 Encounter for adjustment and management of vascular access device (principal); C50.912 Malignant neoplasm of unspecified site of left female breast; I10 Essential (primary) hypertension; E78.00 Pure hypercholesterolemia, unspecified; J44.9 Chronic obstructive pulmonary disease, unspecified; K21.9 Gastro-esophageal reflux disease without esophagitis; E66.9 Obesity, unspecified; M19.90 Unspecified osteoarthritis, unspecified site; F41.9 Anxiety disorder, unspecified; F32.9 Major depressive disorder, single episode, unspecified; E11.9 Type 2 diabetes mellitus without complications; I25.10 Atherosclerotic heart disease of native coronary artery without angina pectoris; F17.210 Nicotine dependence, cigarettes, uncomplicated; Z86.73 Personal history of transient ischemic attack (TIA), and cerebral infarction without residual deficits; Z98.51 Tubal ligation status; Z98.890 Other specified postprocedural states; Z87.440 Personal history of urinary (tract) infections; Z79.899 Other long term (current) drug therapy
CPT/HCPCS: 36590; 77001; J3490